=== PATIENT | female | born 1940 | race Caucasian/White ===

== ENCOUNTER 2019-07-07 12:47 | Outpatient (CLI) | payer MEDICARE, SELFPAY ==
[2019-07-07 13:56] LABS: Alanine Aminotransferase 20 U/L (4-35); Albumin Level 4.3 g/dL (3.5-5.1); Alkaline Phosphatase 84 U/L (38-126); Aspartate Amino Transferase 29 U/L (14-36); Bilirubin,Total 0.4 mg/dL (0.2-1.3); Blood Urea Nitrogen 18 mg/dL (7-17); Calcium 9.2 mg/dL (8.4-10.2); Carbon Dioxide 32 mmol/L (22-30); Chloride 96 mmol/L (98-107); Estimated Glomerular Filt Rate > 60; Glucose 93 mg/dL (65-105); Magnesium 2.1 mg/dL (1.6-2.3); Phosphorus 4.3 mg/dL (2.5-4.5); Sodium 137 mmol/L (137-145)
[2019-07-07 14:04] LABS: Parathyroid Intact 68.5 pg/mL (7.5-53.5)
[2019-07-07 16:07] LABS: Vitamin D 25 Hydroxy 45.3 ng/mL
[2019-07-10 05:31] LABS: Ionized Calcium 5.1 mg/dL (4.8-5.6)
== END 2019-07-07 12:48 | disposition home or self-care (01) ==
PROVIDERS: PCP Internal Medicine
DX: M81.0 Age-related osteoporosis without current pathological fracture (principal)
CPT/HCPCS: 36415; 80053; 82306; 82330; 82652; 83735; 83970; 84100

== ENCOUNTER 2019-12-22 13:46 | Outpatient (CLI) | payer MEDICARE, SELFPAY ==
--- NOTE | ~2019-12-22 | XR_ITS ---
EXAMINATION: XR shoulder RT min 2V DATE: 12/22/2019 14:27 INDICATION: Right shoulder pain. TECHNIQUE: 5 views of right shoulder were obtained. COMPARISON: None. FINDINGS: Bone alignment is normal. There is an oblique fracture deformity of right clavicle at the j unction of the middle and distal thirds. The distal bone demonstrates inferior angulation. There is m ild osteoarthritis of glenohumeral joint and acromioclavicular joint. There are changes of vertebropl asty at 2 levels in the spine. IMPRESSION: 1. Age-indeterminant fracture deformity of right clavicle. 2. Mild polyarticular osteoarthritis. Reviewed, dictated and finalized at location A.
[2019-12-22 15:44] LABS: Basophils Percent Auto 0.6 % (0.2-1.2); Eosinophils Percent Auto 0.6 % (0-4.4); Hematocrit 41.4 % (37.0-47.0); Hemoglobin 13.6 g/dL (12.0-15.0); Immature Granulocyte Absolute 0.02 K/mm3 (0.00-0.031); Immature Granulocyte Percent A 0.3 % (0-0.5); Lymphocytes Percent Auto 19.8 % (18.3-44.2); Mean Corpuscular HGB Conc 32.9 g/dl (32-36); Mean Corpuscular Hemoglobin 29.8 pg (26-34); Mean Corpuscular Volume 90.6 fl (80-100); Mean Platelet Volume 10.2 fl (7.4-10.4); Monocytes Absolute Auto 0.5 K/mm3 (0.1-0.6); Monocytes Percent Auto 6.6 % (2.6-8.5); Neutrophils Absolute Auto 5.1 K/mm3 (1.3-6.7); Neutrophils Percent Auto 72.1 % (45.5-73.1); Platelet Count Result 228 k/mm3 (150-375); Red Blood Count 4.57 M/mm3 (4.2-5.4); Red Cell Distribution Width 13.2 % (11.5-14.5); White Blood Count 7.1 K/mm3 (4.5-10.0)
[2019-12-22 15:47] LABS: Add Urine Microscopic? YES; Appearance Urine Clear (Clear); Bilirubin Urine Negative (Negative); Blood Urine Negative (Negative); Color Urine Yellow (Yellow); Glucose Urine UA Negative (Negative); Ketones Urine Trace mg/dL (Negative); Leukocyte Esterase Ur Negative LEU/UL (Negative); Mucus Urine Rare /lpf; Nitrate Urine Negative (Negative); Protein Urine Negative (Negative); RBC Urine 0-2 /hpf (0-2); Specific Grav Ur 1.017 (1.001-1.035); Squamous Epithelial Cell Urine Rare /hpf (Few); Urobilinogen Urine Negative mg/dL (<2.0); WBC Urine 0-3 /hpf
[2019-12-22 16:00] LABS: Alanine Aminotransferase 18 U/L (4-35); Albumin Level 4.5 g/dL (3.5-5.1); Alkaline Phosphatase 68 U/L (38-126); Anion Gap 11.1 mmol/L (7-16); Aspartate Amino Transferase 29 U/L (14-36); Bilirubin,Total 0.5 mg/dL (0.2-1.3); Blood Urea Nitrogen 23 mg/dL (7-17); Calcium 9.3 mg/dL (8.4-10.2); Carbon Dioxide 31 mmol/L (22-30); Chloride 98 mmol/L (98-107); Cholesterol 218 mg/dL (0-200); Estimated Glomerular Filt Rate > 60; Glucose 95 mg/dL (65-105); HDL Direct 106 mg/dL; Potassium 4.1 mmol/L (3.4-5.0); Sodium 136 mmol/L (137-145); Triglycerides 79 mg/dL (<150)
[2019-12-22 16:11] LABS: LDL Cholesterol Direct 94 mg/dL
[2019-12-22 16:28] LABS: Thyroid Stimulating Hormone 0.824 uIU/mL (0.465-4.680)
== END 2019-12-22 13:47 | disposition home or self-care (01) ==
PROVIDERS: PCP Internal Medicine; Visit Provider Internal Medicine
DX: R53.1 Weakness (principal); M25.519 Pain in unspecified shoulder; N32.89 Other specified disorders of bladder; E78.5 Hyperlipidemia, unspecified; E03.9 Hypothyroidism, unspecified; M95.8 Other specified acquired deformities of musculoskeletal system; M19.011 Primary osteoarthritis, right shoulder
CPT/HCPCS: 36415; 73030; 80053; 80061; 81001; 84443; 85025

== ENCOUNTER 2020-01-03 13:32 | Outpatient (CLI) | payer MEDICARE, SELFPAY ==
--- NOTE | ~2020-01-03 | DEXA_ITS ---
Bone Density Report Name: Mely Wheatley Age: 79 Sex: Female Ethnicity: White Date of : 1940 Indication: postmenopausal osteoporosis; monitoring treatment; height loss; prior fracture; Referring Provider: PHYSICIAN NOT ON STAFF Study: Bone densitometry was performed. Exam Date: January 03, 2020 Accession number: [id number] Bone Density: Region BMD T-score Z-score Classification AP Spine (L3, L4) 0.893 -1.9 1.0 Osteopenia Femoral Neck (Left) 0.418 -3.9 -1.5 Osteoporosis Total Hip (Left) 0.541 -3.3 -1.1 Osteoporosis Total Hip Bilateral Avg 0.556 -3.2 -1.0 Osteoporosis Femoral Neck (Right) 0.440 -3.7 -1.3 Osteoporosis Total Hip (Right) 0.571 -3.0 -0.9 Osteoporosis World Health Organization criteria for BMD impression classify patients as: Normal (T-score at or above -1.0), Osteopenia (T-score between -1.0 and -2.5), or Osteoporosis (T-score at or below -2.5). 10-year Fracture Risk: FRAX not reported because: Some T-score for Spine Total or Hip Total or Femoral Neck at or below -2.5 Prior hip or vertebral fracture Treated for osteopor Previous Exams: Region Exam Age BMD T-score BMD Change BMD Change Date g/cm2 vs Baseline vs Previous AP Spine(L3, L4) 01/03/2020 79 0.893 -1.9 0.008(0.9%) 0.008(0.9%) 10/27/2018 78 0.885 -2.0 Total Hip(Left) 01/03/2020 79 0.541 -3.3 0.038(7.6%)* 0.038(7.6%)* 10/27/2018 78 0.503 -3.6 Total Hip(Right) 01/03/2020 79 0.571 -3.0 0.026(4.8%) 0.026(4.8%) 10/27/2018 78 0.544 -3.3 *Denotes significance at 95% confidence level, LSC for AP Spine = 0.022 g/cm2, LSC for Total Hip = 0.027 g/cm2 Clinical Information Provided by Patient: Have had a previous hip or vertebral fracture Has had a low trauma fracture Is being treated for osteoporosis Has used the following medications: Prolia (i.e. denosumab), Vitamin D, Calcium Patient maximum height was 66.5 Menopause Age: 48 No regular weight bearing exercise Onset of menses at age 12 Number of children 2 Impression: The patient has established osteoporosis, based on the Left Femoral Neck T-score and the existence of a prior fracture. The patient has risk factors, including: previous fracture. No significant bone loss was observed. Discussion: PATIENT UNDER TREATMENT WITH NO SIGNIFICANT BMD LOSS SINCE LAST EXAM. In an untreated patient, BMD typically declines with age. A lack of decline or gain is usually a sign that treatment is efficac
== END 2020-01-03 13:33 | disposition home or self-care (01) ==
PROVIDERS: PCP Internal Medicine
DX: M81.0 Age-related osteoporosis without current pathological fracture (principal); M85.88 Other specified disorders of bone density and structure, other site
CPT/HCPCS: 77080

== ENCOUNTER 2020-01-19 15:14 | Outpatient (CLI) | payer MEDICARE, SELFPAY ==
[2020-01-19 16:51] LABS: Alanine Aminotransferase 16 U/L (4-35); Albumin Level 4.4 g/dL (3.5-5.1); Alkaline Phosphatase 67 U/L (38-126); Anion Gap 6 mmol/L (8-16); Aspartate Amino Transferase 27 U/L (14-36); Bilirubin,Total 0.5 mg/dL (0.2-1.3); Blood Urea Nitrogen 20 mg/dL (7-17); Calcium 9.5 mg/dL (8.4-10.2); Carbon Dioxide 30 mmol/L (22-30); Chloride 98 mmol/L (98-107); Estimated Glomerular Filt Rate > 60; Glucose 90 mg/dL (65-105); Magnesium 2.2 mg/dL (1.6-2.3); Phosphorus 4.7 mg/dL (2.5-4.5); Sodium 134 mmol/L (137-145)
[2020-01-19 17:02] LABS: Parathyroid Intact 40.6 pg/mL (7.5-53.5)
[2020-01-19 17:27] LABS: Vitamin D 25 Hydroxy 61.4 ng/mL
[2020-01-22 05:50] LABS: Ionized Calcium 5.3 mg/dL (4.8-5.6)
== END 2020-01-19 15:15 | disposition home or self-care (01) ==
PROVIDERS: PCP Internal Medicine
DX: M81.0 Age-related osteoporosis without current pathological fracture (principal)
CPT/HCPCS: 36415; 80053; 82306; 82330; 83735; 83970; 84100

== ENCOUNTER 2020-09-02 08:12 | Outpatient (CLI) | payer MEDICARE, SELFPAY ==
[2020-09-02 08:50] LABS: Basophils Percent Auto 0.6 % (0.2-1.2); Eosinophils Absolute Auto 0.1 K/mm3 (0-0.3); Eosinophils Percent Auto 0.9 % (0-4.4); Hematocrit 42.5 % (37.0-47.0); Hemoglobin 13.4 g/dL (12.0-15.0); Immature Granulocyte Absolute 0.02 K/mm3 (0.00-0.031); Immature Granulocyte Percent A 0.3 % (0-0.5); Lymphocytes Percent Auto 25.8 % (18.3-44.2); Mean Corpuscular HGB Conc 31.5 g/dl (32-36); Mean Corpuscular Hemoglobin 28.6 pg (26-34); Mean Corpuscular Volume 90.8 fl (80-100); Monocytes Absolute Auto 0.5 K/mm3 (0.1-0.6); Neutrophils Absolute Auto 4.3 K/mm3 (1.3-6.7); Neutrophils Percent Auto 65.4 % (45.5-73.1); Platelet Count Result 240 k/mm3 (150-375); Red Blood Count 4.68 M/mm3 (4.2-5.4); Red Cell Distribution Width 13.4 % (11.5-14.5); White Blood Count 6.6 K/mm3 (4.5-10.0)
[2020-09-02 09:03] LABS: Alanine Aminotransferase 18 U/L (4-35); Albumin Level 4.3 g/dL (3.5-5.1); Alkaline Phosphatase 66 U/L (38-126); Anion Gap 4 mmol/L (8-16); Aspartate Amino Transferase 29 U/L (14-36); Bilirubin,Total 0.3 mg/dL (0.2-1.3); Blood Urea Nitrogen 27 mg/dL (7-17); Calcium 9.6 mg/dL (8.4-10.2); Carbon Dioxide 36 mmol/L (22-30); Chloride 102 mmol/L (98-107); Estimated Glomerular Filt Rate > 60; Glucose 94 mg/dL (65-105); Potassium 4.5 mmol/L (3.4-5.0); Sodium 142 mmol/L (137-145)
[2020-09-02 09:35] LABS: Free T4 Free Thyroxine 1.29 ng/mL (0.78-2.19)
[2020-09-05 14:47] LABS: Triiodothyronine T3 Free 2.5 pg/mL (2.3-4.2)
== END 2020-09-02 08:13 | disposition home or self-care (01) ==
PROVIDERS: PCP Internal Medicine; Visit Provider Internal Medicine
DX: E03.9 Hypothyroidism, unspecified (principal); F41.9 Anxiety disorder, unspecified; M81.0 Age-related osteoporosis without current pathological fracture
CPT/HCPCS: 36415; 80053; 84439; 84443; 84481; 85025

== ENCOUNTER 2020-10-13 12:03 | Outpatient (CLI) | payer MEDICARE, SELFPAY ==
--- NOTE | ~2020-10-13 | US_ITS ---
EXAMINATION: US venous doppler LE EXAM DATE: 10/13/2020 12:36 INDICATION: M79.89 - Other specified soft tissue disorders right leg pain TECHNIQUE: Multiple grayscale, color flow and Doppler images of the lower extremity deep venous syste ms bilaterally were obtained and reviewed. There is no prior study for comparison. FINDINGS: Right side: The right common femoral, femoral and profunda veins demonstrate normal color flow, respi ratory variation, augmentation and compressibility. Compressibility, color flow confirmed within the right popliteal, posterior tibial, peroneal, and greater saphenous veins. Small popliteal space flu id collection probably Abbasi's cyst measuring 30.7 x 1.2 x 0.4 cm. Left side: The left common femoral, femoral and profunda veins demonstrate normal color flow, respira tory variation, augmentation and compressibility. Compressibility, color flow confirmed within the l eft popliteal, posterior tibial, peroneal, and greater saphenous veins. IMPRESSION: 1. No lower extremity deep venous thrombosis bilaterally. 2. Small right Abbasi's cyst Reviewed, dictated and finalized at location A.
== END 2020-10-13 12:04 | disposition home or self-care (01) ==
LOC: ANHIMG 12:04
PROVIDERS: PCP Internal Medicine; Visit Provider Internal Medicine
DX: M79.89 Other specified soft tissue disorders (principal); M71.21 Synovial cyst of popliteal space [Baker], right knee
CPT/HCPCS: 93970

== ENCOUNTER 2020-11-08 10:45 | Emergency (ER) | payer MEDICARE, SELFPAY ==
[2020-11-08] VITALS (9 sets, daily range): BP systolic 138–180; BP diastolic 88–98; PULSE 65–76; RESP 13–16; TEMP 36.2; O2SAT 90–100
--- NOTE | ~2020-11-08 | CT_ITS ---
EXAMINATION: CTA chest PE protocol DATE: 11/08/2020 14:49 INDICATION: Chest pain. Upper chest pain. Left lower rib pain. TECHNIQUE: Computed tomography angiography (CTA) of the chest was performed with 100 mL Omnipaque-350 intravenous contrast timed to evaluate the pulmonary arteries. Coronal maximum intensity projection 3D-reconstructions were created by the technologist. Automated exposure control and iterative reconst ruction technique were employed. Exam dose: 136.07 mGy-cm total exam DLP. COMPARISON: 11/08/2020 AP and lateral chest FINDINGS: There is diagnostic contrast enhancement of the pulmonary arteries and no evidence of pulmo nary embolism. Cardiomegaly. No pericardial effusion or pleural effusion. No hilar or mediastinal mass lesion or lym phadenopathy. No thoracic aortic aneurysm. There is mild discoid atelectasis or scarring in the lower lung zones primarily. No pulmonary consoli dation. Diffuse osteopenia. Status post vertebroplasty at T12 and L1 burst fractures. There is a burst fracture at T8. Prominent anterior wedge compression fracture deformity at T11. Biconcavity of multiple thoracic vertebral bodi es and L2 and L3. IMPRESSION: No evidence of pulmonary embolism Reviewed, dictated and finalized at Location A. Reviewed, dictated and finalized at location A.
--- NOTE | ~2020-11-08 | XR_ITS ---
XR chest 2V 11/08/2020 11:18 Indication: Chest heaviness Procedure: AP and lateral views of the chest Comparison: No prior studies for comparison. Findings: Heart size normal. No focal air space disease, pulmonary edema, pleural effusion or suspect ed pneumothorax. There is healed right midclavicular fracture. There are multiple thoracic compressio n fractures which appear chronic, 2 of which contain vertebroplasty change in the lower thoracic spin e. There is accentuated thoracic kyphosis. The lungs are hyperinflated which is consistent with, but not diagnostic of chronic obstructive pulmonary disease. Impression: 1: No acute cardiopulmonary disease. Reviewed, dictated and finalized at location A. Impression: 1: No acute cardiopulmonary disease.
--- NOTE | 2020-11-08 10:57 | ECG_ITS ---
Measurements Intervals [place] Rate: 76 P: 42 [place]: 147 QRS: 2 QRSD: 90 T: 62 QT: 370 QTc: 417 Interpretive Statements SINUS RHYTHM INCOMPLETE RIGHT BUNDLE BRANCH BLOCK VOLTAGE CRITERIA FOR LVH PEAKED T WAVES- CONSIDER HYPERKALEMIA OR ISCHEMIA BASELINE ARTIFACT- I, II, III, AVL ABNORMAL ECG Electronically Signed On 11-08-2020 11:22:48 CDT by Kip Gipson D.O.
[2020-11-08 11:38] LABS: Basophils Percent Auto 0.3 % (0.2-1.2); Eosinophils Percent Auto 0.1 % (0-4.4); Hematocrit 39.3 % (37.0-47.0); Hemoglobin 12.7 g/dL (12.0-15.0); Immature Granulocyte Absolute 0.02 K/mm3 (0.00-0.031); Immature Granulocyte Percent A 0.3 % (0-0.5); Lymphocytes Absolute Auto 1.39 K/mm3 (0.9-3.2); Lymphocytes Percent Auto 19.3 % (18.3-44.2); Mean Corpuscular HGB Conc 32.3 g/dl (32-36); Mean Corpuscular Volume 89.7 fl (80-100); Mean Platelet Volume 9.6 fl (7.4-10.4); Monocytes Absolute Auto 0.4 K/mm3 (0.1-0.6); Monocytes Percent Auto 6.1 % (2.6-8.5); Neutrophils Absolute Auto 5.3 K/mm3 (1.3-6.7); Neutrophils Percent Auto 73.9 % (45.5-73.1); Platelet Count Result 220 k/mm3 (150-375); Red Blood Count 4.38 M/mm3 (4.2-5.4); Red Cell Distribution Width 13.7 % (11.5-14.5); White Blood Count 7.2 K/mm3 (4.5-10.0)
[2020-11-08 11:45] LABS: Anion Gap 7 mmol/L (8-16); Blood Urea Nitrogen 19 mg/dL (7-17); Calcium 9.6 mg/dL (8.4-10.2); Carbon Dioxide 31 mmol/L (22-30); Chloride 100 mmol/L (98-107); Estimated CRCL calculation 30 ml/min; Estimated Glomerular Filt Rate > 60; Glucose 93 mg/dL (65-105); Potassium 4.3 mmol/L (3.4-5.0); Sodium 138 mmol/L (137-145)
[2020-11-08] MEDS: ASPIRIN 81 MG CHEWABLE TABLET 324 MG PO (11:48)
[2020-11-08 11:52] LABS: INR 0.9; Prothrombin Time 12.8 Seconds (11.1-14.7)
[2020-11-08 11:53] LABS: Partial Thromboplastin Time 30.5 SECONDS (22.3-36.8)
[2020-11-08 11:57] LABS: Troponin I < 0.012 ng/mL (0.000-0.034)
--- NOTE | 2020-11-08 12:06 | ED.GENADULT ---
HPI - General Adult General Chief complaint: Chest Pain Stated complaint: Chest Tightness, High BP Time Seen by Provider: 11/08/20 11:13 Source: patient History of Present Illness HPI narrative: Patient is a 80 y/o female complaining of chest pain starting this morning. She describes her pain as a pressure and rates it as 3/10. The is no pain radiation. There is no known alleviating or exacerbating factor. She also has some left lateral rib pain for 3 days. Related Data Home Medications Medication Instructions Recorded Confirmed cholecalciferol (vitamin D3) 25 1,000 unit PO DAILY 04/13/19 08/15/20 mcg (1,000 unit) capsule magnesium aspartate HCl 61 mg (615 61 mg PO DAILY 04/26/20 08/15/20 mg) tablet,delayed release multivitamin 1 tablet PO DAILY 04/26/20 08/15/20 denosumab 60 mg/mL subcutaneous 60 mg SUBCUT [id number] 08/15/20 08/15/20 syringe Allergies Allergy/AdvReac Type Severity Reaction Status Date / Time No Known Allergies Allergy Verified 10/13/20 11:14 Review of Systems Constitutional: Constitutional: Denies chills, Denies fever(s), Denies headache(s) and Denies weakness Eyes: Eyes: Denies blurry vision ENT: Denies headache(s) and Denies neck pain Cardiovascular: Cardiovascular: Reports chest pain and Denies dyspnea Respiratory: Respiratory: Denies cough and Denies dyspnea Gastrointestinal: Gastrointestinal: Denies abdominal pain, Denies diarrhea, Denies nausea and Denies vomiting Genitourinary: Genitourinary: Denies hematuria and Denies dysuria Musculoskeletal: Musculoskeletal: Denies back pain and Denies neck pain Neurologic: Denies headache(s) and Denies weakness [facility] Past Medical History Medical History Acquired hypothyroidism Age-related osteoporosis with current pathological fracture Arthritis Back pain Dermatitis Dyshidrotic dermatitis Forgetfulness Generalized weakness H/O: HTN (hypertension) IFG (impaired fasting glucose) Osteoporosis Osteoporosis Rotator cuff strain Rotator cuff tear, right Thyroid disease Family History Family History Mother Diabetes mellitus Hypertension Other Family history of congestive heart failure Social History Social History Second hand tobacco smoke exposure: No Alcohol intake: never Spiritual care concerns: No Exam Const: General: no acute distress and well developed Orientation/consciousness: oriented to person, oriented to place, oriented to time and patient oriented x3 HENMT: Head: normocephalic Ears: external ears normal General nose exam: Normal external nose present Eyes: General: appearance normal, both eyes and all related structures Conjunctivae: conjunctivae normal Neck: Neck: normal visual inspection and full ROM Chest: Chest palpation & inspection: normal inspection of the chest and no tenderness Resp: Effort & Inspection: normal respiratory effort Auscultation: clear to auscultation bilaterally Cardio: Rate: regular rate Rhythm: regular rhythm GI: GI Palp: No abdominal tenderness and Yes Soft to palpation Skin: General skin exam: normal color and turgor normal Neuro: General: oriented to person, oriented to place, oriented to time and patient oriented x3 Cognition (Neuro): normal cognition Extrem: General: normal to inspection, full ROM and no pedal edema Psych: Appearance: grossly normal Mental Status: mental status grossly normal Affect: normal affect Course Reevaluation(s) Reevaluation #1: Rechecked. Patient feels better. She has no pain at this time. Date: 11/08/20 Time: 16:16 Vital Signs Vital signs: Vital Signs Temperature 36.2 C L 11/08/20 10:57 Pulse Rate 76 11/08/20 10:57 Respiratory Rate 16 11/08/20 10:57 Blood Pressure 167/90 H 11/08/20 10:57 Pulse Oximetry 97 11/08/20 10:57 Temperature 36.2 C
[2020-11-08 12:52] LABS: D Dimer 0.83 ug/mL (<0.48)
[2020-11-08 14:52] LABS: Troponin I < 0.012 ng/mL (0.000-0.034)
== END 2020-11-08 16:40 | disposition home or self-care (01) ==
PROVIDERS: Emergency Medicine; Emergency Provider Emergency Medicine; PCP Internal Medicine
DX: R07.9 Chest pain, unspecified (principal); E03.9 Hypothyroidism, unspecified; M19.90 Unspecified osteoarthritis, unspecified site; I10 Essential (primary) hypertension; M81.0 Age-related osteoporosis without current pathological fracture; I45.10 Unspecified right bundle-branch block; R94.31 Abnormal electrocardiogram [ECG] [EKG]
CPT/HCPCS: 36415; 71046; 71275; 80048; 84484; 85025; 85380; 85610; 85730; 93005; 99284; A9270; Q9967

== ENCOUNTER 2021-02-16 10:07 | Outpatient (CLI) | payer MEDICARE, SELFPAY ==
[2021-02-16 11:08] LABS: Alanine Aminotransferase 18 U/L (4-35); Albumin Level 4.7 g/dL (3.5-5.1); Alkaline Phosphatase 77 U/L (38-126); Anion Gap 7 mmol/L (8-16); Aspartate Amino Transferase 26 U/L (14-36); Bilirubin,Total 0.6 mg/dL (0.2-1.3); Blood Urea Nitrogen 20 mg/dL (7-17); Calcium 9.5 mg/dL (8.4-10.2); Carbon Dioxide 30 mmol/L (22-30); Chloride 101 mmol/L (98-107); Cholesterol 209 mg/dL (0-200); Estimated Glomerular Filt Rate > 60; Glucose 98 mg/dL (65-110); HDL Direct 109 mg/dL; Potassium 4.4 mmol/L (3.4-5.0); Sodium 138 mmol/L (137-145); Triglycerides 72 mg/dL (<150)
[2021-02-16 11:19] LABS: LDL Cholesterol Direct 83 mg/dL
[2021-02-16 12:05] LABS: Hemoglobin A1C 5.7 % (<5.7)
[2021-02-16 12:10] LABS: Vitamin D 25 Hydroxy 56.8 ng/mL
== END 2021-02-16 10:08 | disposition home or self-care (01) ==
PROVIDERS: PCP Internal Medicine; Visit Provider Internal Medicine
DX: E03.9 Hypothyroidism, unspecified (principal); E55.9 Vitamin D deficiency, unspecified; F41.9 Anxiety disorder, unspecified; M81.0 Age-related osteoporosis without current pathological fracture; R68.89 Other general symptoms and signs; R73.01 Impaired fasting glucose; E78.2 Mixed hyperlipidemia
CPT/HCPCS: 36415; 80053; 80061; 82306; 83036; 84443

== ENCOUNTER 2021-02-21 12:55 | Outpatient (NON) | payer MEDICARE, SELFPAY ==
[2021-02-21 14:02] LABS: Creatinine Urine 113.7 mg/dL
[2021-02-21 14:08] LABS: Microalbumin Urine Random 29.6 mg/L (0-16.7)
== END 2021-02-21 12:56 | disposition home or self-care (01) ==
LOC: ANHLAB 12:57
PROVIDERS: PCP Internal Medicine; Visit Provider Internal Medicine
DX: E03.9 Hypothyroidism, unspecified (principal); R68.89 Other general symptoms and signs; M81.0 Age-related osteoporosis without current pathological fracture; F41.9 Anxiety disorder, unspecified; E55.9 Vitamin D deficiency, unspecified; R73.01 Impaired fasting glucose
CPT/HCPCS: 82043

== ENCOUNTER 2021-10-13 12:10 | Emergency (ER) | payer MEDICARE, SELFPAY ==
[2021-10-13] VITALS (11 sets, daily range): BP systolic 122–183; BP diastolic 74–95; PULSE 67–87; RESP 12–20; TEMP 36.3; O2SAT 94–100
--- NOTE | ~2021-10-13 | CT_ITS ---
EXAMINATION: CT abdomen pelvis wo con DATE: 10/13/2021 13:58 INDICATION: right flank pain TECHNIQUE: Computed tomography (CT) of the abdomen and pelvis was performed without intravenous contr ast. Automated exposure control and iterative reconstruction technique were employed. The dose-length product was 166.52 mGy-cm. COMPARISON: CTPA 11/08/2020. FINDINGS: Lower thorax: Atelectasis/scar and senescent changes in the lung bases. Moderate coronary artery calc ification. Liver: Normal. Biliary/Gallbladder: Gallbladder is normal. No bile duct dilation. Pancreas: No mass or duct dilation. Spleen: Normal. Adrenals:No mass. Kidneys: Ectopic right kidney. Punctate nonobstructing bilateral renal calculi. The right ureter coul d not be traced confidently in the pelvis due to the paucity of peritoneal fat and loops of bowel. GI tract: No small or large bowel dilation. Normal appendix. Diverticulosis without diverticulitis Mesentery/Peritoneum: No ascites, mass, or free air. Retroperitoneum: No mass. Pelvis: Pelvic organs are within normal limits. Soft Tissues: Soft tissues and body wall unremarkable. Bones: Multiple stable vertebral body compression fractures. Presumed old superior endplate deformit y of L5. IMPRESSION: Punctate nonobstructing bilateral calculi. Ectopic right kidney. Nonvisualization of the distal right ureter, however no calcifications are definitely seen within the expected path of the right ureter. Likely old L5 superior endplate deformity, unless accompanied by acute pain or tenderness. No definit e acute abdominopelvic process. Reviewed, dictated and finalized at location K. IMPRESSION: Punctate nonobstructing bilateral calculi. Ectopic right kidney. Nonvisualizati on of the distal right ureter, however no calcifications are definitely seen wi thin the expected path of the right ureter. Likely old L5 superior endplate def ormity, unless accompanied by acute pain or tenderness. No definite acute abdom inopelvic process.
--- NOTE | ~2021-10-13 | XR_ITS ---
EXAMINATION: XR chest 2V DATE: 10/13/2021 13:49 INDICATION: Lower abdominal pain radiating into the back TECHNIQUE: frontal and lateral views of the chest were obtained. COMPARISON: Chest radiograph and CT dated 11/08/2020 FINDINGS: The lungs are clear with no focal airspace opacities, pulmonary edema, pleural effusion or pneumothor ax. Mild cardiomegaly. Stable appearance of several burst fractures including at T8 and T11 and witho ut vertebral plasties at T12 and L1. Old healed right clavicle fracture deformity. IMPRESSION: 1. No acute cardiopulmonary disease. 2. Thoracic kyphosis with stable appearance of a few chronic thoracic and lumbar burst fractures. Reviewed, dictated and finalized at location A. IMPRESSION: 1. No acute cardiopulmonary disease. 2. Thoracic kyphosis with stable appearance of a few chronic thoracic and lumba r burst fractures.
--- NOTE | ~2021-10-13 | CT_ITS ---
EXAMINATION: CT thoracic spine wo con DATE: 10/13/2021 15:53 INDICATION: fracture . TECHNIQUE: Computed tomography (CT) of the thoracic spine was performed without intravenous contrast. Automated exposure control and iterative reconstruction technique were employed. The dose-length pro duct was 162.18 mGy-cm. COMPARISON: CT abdomen and pelvis, and 2 view chest x-ray same date. CTPA 11/08/2020. FINDINGS: Vertebroplasty cement and mild height loss at T12 and L1. Severe height loss at T8. Moderat e height loss at T11. Remaining vertebral body heights are maintained. No acute fracture or traumatic malalignment. Posterior elements are intact and the facets are aligned. Severe exaggerated thoracic kyphosis. Coronary artery and atherosclerotic aortic calcifications. IMPRESSION: 1. No acute fracture or traumatic malalignment in the thoracic spine. Reviewed, dictated and finalized at location K.
[2021-10-13 12:29] LABS: Basophils Percent Auto 0.4 % (0.2-1.2); Eosinophils Percent Auto 0.1 % (0-4.4); Hematocrit 40.5 % (37.0-47.0); Hemoglobin 13.2 g/dL (12.0-15.0); Immature Granulocyte Absolute 0.02 K/mm3 (0.00-0.031); Immature Granulocyte Percent A 0.2 % (0-0.5); Lymphocytes Absolute Auto 1.29 K/mm3 (0.9-3.2); Lymphocytes Percent Auto 15.8 % (18.3-44.2); Mean Corpuscular HGB Conc 32.6 g/dl (32-36); Mean Corpuscular Hemoglobin 29.7 pg (26-34); Mean Corpuscular Volume 91.2 fl (80-100); Mean Platelet Volume 9.9 fl (7.4-10.4); Monocytes Absolute Auto 0.5 K/mm3 (0.1-0.6); Monocytes Percent Auto 6.4 % (2.6-8.5); Neutrophils Absolute Auto 6.3 K/mm3 (1.3-6.7); Neutrophils Percent Auto 77.1 % (45.5-73.1); Platelet Count Result 273 k/mm3 (150-375); Red Blood Count 4.44 M/mm3 (4.2-5.4); Red Cell Distribution Width 13.2 % (11.5-14.5); White Blood Count 8.2 K/mm3 (4.5-10.0)
[2021-10-13 12:47] LABS: Alanine Aminotransferase 20 U/L (6-35); Albumin Level 4.5 g/dL (3.5-5.1); Alkaline Phosphatase 85 U/L (38-126); Anion Gap 3 mmol/L (8-16); Aspartate Amino Transferase 30 U/L (14-36); Bilirubin,Total 0.3 mg/dL (0.2-1.3); Blood Urea Nitrogen 20 mg/dL (7-17); Calcium 9.4 mg/dL (8.4-10.2); Carbon Dioxide 31 mmol/L (22-30); Chloride 100 mmol/L (98-107); Estimated CRCL calculation 34 ml/min; Estimated Glomerular Filt Rate > 60; Glucose 96 mg/dL (65-110); Potassium 4.2 mmol/L (3.4-5.0); Sodium 134 mmol/L (137-145)
--- NOTE | 2021-10-13 12:59 | ED.ABDPAIN ---
HPI - Abdominal Pain General Chief Complaint: Abdominal Pain Stated Complaint: Flank Pain Time Seen by Provider: 10/13/21 12:57 Source: patient Mode of arrival: ambulatory Limitations: no limitations History of Present Illness HPI narrative: The patient is an 81-year-old female with a history of hypertension, osteoporosis, hypothyroidism presenting to the emergency department for evaluation of lower chest pain, right flank pain. Patient states that she has been experiencing bilateral lower rib cage pain with radiation to the right flank over the past 24 hours. Patient denies frontal chest pain, nausea, vomiting. She denies any significant frontal abdominal pain, distention, diarrhea or constipation. Patient was watering hassan yesterday, noted the pain to begin shortly thereafter. Patient denies any spasm-like pain. No radiation into the buttocks. Patient denies any lightheadedness, dizziness or near syncopal events. Patient denies fall or injury. No pleuritic pain, cough or hemoptysis Patient denies any dysuria or hematuria. Patient does report that pain in the right flank is exacerbated with movement and resolves with rest. Pt does have a history of mild dementia and at times, details difficult to obtain from patient. Family at bedside does help to provide this. Related Data Home Medications Medication Instructions Recorded Confirmed cholecalciferol (vitamin D3) 25 1,000 unit PO DAILY 04/13/19 06/25/21 mcg (1,000 unit) capsule multivitamin 1 tablet PO DAILY 04/26/20 06/25/21 Allergies Allergy/AdvReac Type Severity Reaction Status Date / Time nitrofurantoin AdvReac Itching Verified 10/13/21 12:54 [From Macrobid] Review of Systems Review of Systems: CONSTITUTIONAL: Denies fever, chills, or sweats. EYES: Denies visual changes, redness, or discharge. ENT: Denies rhinorrhea, congestion, sore throat, or otalgia. CARDIOVASCULAR: Reports lower rib cage pain, denies palpitations or edema RESPIRATORY: Denies cough or dyspnea. GASTROINTESTINAL: Denies abdominal pain, nausea, vomiting, or diarrhea. Thorax: Reports right flank pain GENITOURINARY: Denies dysuria or hematuria. SKIN: Denies rash or itching. MUSCULOSKELETAL: Denies back pain, joint pain, or myalgia. NEUROLOGIC: Denies headache, numbness, or weakness. [facility] Past Medical History Medical History Acquired hypothyroidism Age-related osteoporosis with current pathological fracture Arthritis Back pain Dermatitis Dyshidrotic dermatitis Forgetfulness Generalized weakness H/O: HTN (hypertension) History of fractured pelvis (~02/2020) IFG (impaired fasting glucose) Osteoporosis Osteoporosis Rotator cuff strain Rotator cuff tear, right Thyroid disease Family History Family History Mother Diabetes mellitus Hypertension Father Pancreatic cancer Other Family history of congestive heart failure Social History Social History Smoking status: Never smoker Second hand tobacco smoke exposure: No Alcohol intake: never Substance use: never Substance use type: does not use Spiritual care concerns: No Exam Narrative: GENERAL: Awake, alert, conversant, thin HEAD: Normocephalic, atraumatic. EYES: PERRLA and EOMI. ENT: Nares clear, no rhinorrhea or epistaxis. Mucous membranes moist. NECK: Supple. Kyphosis of the neck. CHEST: No respiratory distress, breathing even and non labored, no chest wall tenderness HEART: Regular rate, sinus rhythm ABDOMEN:Non distended, no reproducible tenderness in all 4 quadrants on exam, no rigidity, rebound or guarding Thorax: No midline thoracic or lumbar tenderness. There is positive right paraspinal lumbar tenderness which reproduces pain. EXTREMITIES: Normal range of motion. No edema. SKIN: Warm, dry, no rash. NEURO:No focal deficits. Alert a
--- NOTE | 2021-10-13 13:32 | ECG_ITS ---
Measurements Intervals [place] Rate: 68 P: 32 [place]: 149 QRS: -6 QRSD: 94 T: 47 QT: 407 QTc: 436 Interpretive Statements SINUS RHYTHM RSR' IN V1 OR V2, CONSIDER RIGHT VENTRICULAR HYPERTROPHY OR RIGHT VCD BASELINE ARTIFACT- I, II, III, AVR, AVL, AVF, V1-V2 BORDERLINE ECG Electronically Signed On 10-13-2021 17:09:38 CDT by Kip Gipson D.O.
--- NOTE | 2021-10-13 13:42 | PC.NURSE ---
called lab and talked to Shona at 1341 to add on a Trop 1.
[2021-10-13 13:50] LABS: Appearance Urine Clear (Clear); Bilirubin Urine Negative (Negative); Blood Urine Negative (Negative); Color Urine Yellow (Yellow); Glucose Urine UA Negative (Negative); Ketones Urine Negative (Negative); Leukocyte Esterase Ur Negative LEU/UL (Negative); Nitrate Urine Negative (Negative); Protein Urine Negative (Negative); Specific Grav Ur 1.025 (1.001-1.035); Urobilinogen Urine 0.2 mg/dL (<2.0); pH Urine 6.5 (5.0-9.0)
[2021-10-13 13:57] LABS: Add Urine Microscopic? NO
[2021-10-13] MEDS: SODIUM CHLORIDE 0.9% IV 1,000 ML 999 ML IV CONT (14:03)
[2021-10-13] MEDS: MORPHINE SULFATE (*CRX) 2 MG/ML INJ IV PUSH (14:03)
[2021-10-13] MEDS: ACETAMINOPHEN 500 MG TABLET 1000 MG PO (14:04)
[2021-10-13 14:08] LABS: Troponin I < 0.012 ng/mL (0.000-0.034)
== END 2021-10-13 17:44 | disposition home or self-care (01) ==
PROVIDERS: Emergency Medicine; Emergency Provider Emergency Medicine; PCP Internal Medicine
DX: S29.012A Strain of muscle and tendon of back wall of thorax, initial encounter (principal); R10.9 Unspecified abdominal pain; F03.90 Unspecified dementia, unspecified severity, without behavioral disturbance, psychotic disturbance, mood disturbance, and anxiety; I10 Essential (primary) hypertension; E03.9 Hypothyroidism, unspecified; M81.0 Age-related osteoporosis without current pathological fracture; M19.90 Unspecified osteoarthritis, unspecified site; R94.31 Abnormal electrocardiogram [ECG] [EKG]; N20.0 Calculus of kidney; X58.XXXA Exposure to other specified factors, initial encounter
CPT/HCPCS: 36415; 71046; 72128; 74176; 80053; 81003; 84484; 85025; 93005; 96374; 99284; A9270; J2270; J7030

== ENCOUNTER 2021-10-29 10:31 | Outpatient (CLI) | payer MEDICARE, SELFPAY ==
[2021-10-29 11:01] LABS: Appearance Urine Clear (Clear); Bilirubin Urine Negative (Negative); Blood Urine Negative (Negative); Color Urine Yellow (Yellow); Glucose Urine UA Negative (Negative); Ketones Urine Negative (Negative); Leukocyte Esterase Ur Trace LEU/UL (Negative); Nitrate Urine Negative (Negative); Protein Urine Negative (Negative); Specific Grav Ur 1.015 (1.001-1.035); Urobilinogen Urine 0.2 mg/dL (<2.0)
[2021-10-29 11:14] LABS: Mucus Urine Rare /lpf; RBC Urine 0-2 /hpf (0-2); Squamous Epithelial Cell Urine Rare /hpf (Few)
[2021-10-29 11:15] LABS: Add Urine Microscopic? YES
== END 2021-10-29 10:32 | disposition home or self-care (01) ==
LOC: ANHLAB 10:33
PROVIDERS: PCP Internal Medicine; Visit Provider Internal Medicine
DX: N39.0 Urinary tract infection, site not specified (principal)
CPT/HCPCS: 81001

== ENCOUNTER 2022-03-07 10:42 | Outpatient (CLI) | payer MEDICARE, SELFPAY ==
--- NOTE | ~2022-03-07 | DEXA_ITS ---
Bone Density Report Name: PEYMAN GAMA Age: 81 Sex: Female Ethnicity: White Date of : 1940 Indication: postmenopausal; screening for osteoporosis; height loss; prior fracture; Referring Provider: RADU ESPARZA Study: Bone densitometry was performed. Exam Date: March 07, 2022 Accession number: [id number] Bone Density: Region BMD T-score Z-score Classification AP Spine(L3, L4) 0.927 -1.6 1.4 Osteopenia Femoral Neck (Left) 0.497 -3.2 -0.7 Osteoporosis Total Hip (Left) 0.513 -3.5 -1.2 Osteoporosis Femoral Neck (Right) 0.457 -3.5 -1.1 Osteoporosis Total Hip (Right) 0.579 -3.0 -0.7 Osteoporosis Total Hip Mean 0.546 -3.3 -1.0 Osteoporosis World Health Organization criteria for BMD impression classify patients as: Normal (T-score at or above -1.0), Osteopenia (T-score between -1.0 and -2.5), or Osteoporosis (T-score at or below -2.5). 10-year Fracture Risk: FRAX not reported because: Some T-score for Spine Total or Hip Total or Femoral Neck at or below -2.5 Prior hip or vertebral fracture Treated for osteoporosis Clinical Information Provided by Patient: Have had a previous hip or vertebral fracture Has had a low trauma fracture Is being treated for osteoporosis Has used the following medications: Prolia (i.e. denosumab), Vitamin D, Calcium Patient maximum height was 66.5 Menopause Age: 48 No regular weight bearing exercise Onset of menses at age 11 Number of children 2 Impression: The patient has established osteoporosis, based on the Left Total Hip T-score and the existence of a prior fracture. The patient has risk factors, including: previous fracture. Discussion: It is important to ask patients whether they are taking their medications and to encourage continued and appropriate compliance with their osteoporosis therapies to reduce fracture risk. It is also important to review their risk factors and encourage appropriate calcium and vitamin D intakes, exercise, fall prevention and other lifestyle measures. Follow-Up: Consider a repeat BMD and Vertebral Fracture Assessment (VFA) exam in 2 years or sooner if medically necessary, to reassess this patient's status. Reported by: NIKOLAS on 03/07/2022 1:08:00 PM. Reviewed, dictated and finalized at location Ana DUONG
[2022-03-07 12:14] LABS: Alanine Aminotransferase 18 U/L (6-35); Albumin Level 4.6 g/dL (3.5-5.1); Alkaline Phosphatase 83 U/L (38-126); Anion Gap 11 mmol/L (8-16); Aspartate Amino Transferase 25 U/L (14-36); Bilirubin,Total 0.5 mg/dL (0.2-1.3); Blood Urea Nitrogen 17 mg/dL (7-17); Calcium 9.3 mg/dL (8.4-10.2); Carbon Dioxide 30 mmol/L (22-30); Chloride 99 mmol/L (98-107); Cholesterol 205 mg/dL (0-200); Estimated Glomerular Filt Rate > 60; Glucose 94 mg/dL (65-110); HDL Direct 97 mg/dL; Potassium 3.9 mmol/L (3.4-5.0); Sodium 140 mmol/L (137-145); Triglycerides 75 mg/dL (<150)
[2022-03-07 12:25] LABS: LDL Cholesterol Direct 76 mg/dL
[2022-03-07 12:36] LABS: Free T4 Free Thyroxine 1.49 ng/mL (0.78-2.19); Vitamin D 25 Hydroxy 61.3 ng/mL
== END 2022-03-07 10:43 | disposition home or self-care (01) ==
LOC: ANHIMG 10:44
PROVIDERS: PCP Nurse Practitioner; Visit Provider Internal Medicine Endocrinology, Diabetes & Metabolism
DX: M81.0 Age-related osteoporosis without current pathological fracture (principal); E55.9 Vitamin D deficiency, unspecified; F41.9 Anxiety disorder, unspecified; E78.5 Hyperlipidemia, unspecified; M85.88 Other specified disorders of bone density and structure, other site
CPT/HCPCS: 36415; 77080; 80053; 80061; 82306; 84439; 84443

== ENCOUNTER 2022-08-02 14:39 | Outpatient (CLI) | payer MEDICARE, SELFPAY ==
--- NOTE | ~2022-08-02 | XR_ITS ---
EXAMINATION: XR humerus RT DATE: 08/02/2022 14:55 INDICATION: Intermittent right arm pain. TECHNIQUE: Internal and externally rotated views of the right humerus were obtained. COMPARISON: Right shoulder radiographs dated 12/22/2019 FINDINGS: Diffuse osteopenia. Old healed fracture deformity at the lateral right clavicle. Alignment is otherwi se normal. No acute fracture. Mild osteoarthritis of the glenohumeral, acromioclavicular and elbow madeleine ints. Small heterotopic ossification along the medial margin of the proximal ulna. Soft tissues are o therwise unremarkable. Visualized portion of the right lung is clear. IMPRESSION: 1. Mild osteoarthritis at the right elbow and shoulder. No acute osseous abnormality. Reviewed, dictated and finalized at location A. ERCIAL ATTORNEY IMPRESSION: 1. Mild osteoarthritis at the right elbow and shoulder. No acute osseous abnorm ality.
== END 2022-08-02 14:40 | disposition home or self-care (01) ==
LOC: ANHIMG 14:41
PROVIDERS: PCP Internal Medicine; Visit Provider Nurse Practitioner
DX: M19.011 Primary osteoarthritis, right shoulder (principal); M19.021 Primary osteoarthritis, right elbow
CPT/HCPCS: 73060

== ENCOUNTER 2023-01-06 10:45 | Outpatient (CLI) | payer MEDICARE, SELFPAY ==
[2023-01-06 12:23] LABS: Anion Gap 5 mmol/L (8-16); Blood Urea Nitrogen 22 mg/dL (7-17); Calcium 9.3 mg/dL (8.4-10.2); Carbon Dioxide 33 mmol/L (22-30); Chloride 97 mmol/L (98-107); Cholesterol 214 mg/dL (0-200); Estimated Glomerular Filt Rate > 60; Glucose 94 mg/dL (65-110); HDL Direct 103 mg/dL; Potassium 4.2 mmol/L (3.4-5.0); Sodium 135 mmol/L (137-145); Triglycerides 87 mg/dL (<150)
[2023-01-06 12:34] LABS: LDL Cholesterol Direct 86 mg/dL
[2023-01-06 12:39] LABS: Free T4 Free Thyroxine 1.48 ng/mL (0.78-2.19)
== END 2023-01-06 10:46 | disposition home or self-care (01) ==
LOC: ANHLAB 10:47
PROVIDERS: Internal Medicine Endocrinology, Diabetes & Metabolism; PCP Internal Medicine; Visit Provider Internal Medicine Hematology & Oncology
DX: F41.9 Anxiety disorder, unspecified (principal); E55.9 Vitamin D deficiency, unspecified; E78.5 Hyperlipidemia, unspecified
CPT/HCPCS: 36415; 80048; 80061; 82306; 84439; 84443

== ENCOUNTER 2023-02-04 16:28 | Outpatient (CLI) | payer MEDICARE, SELFPAY ==
[2023-02-04 15:37] LABS: Hematocrit 39.8 % (37.0-47.0); Hemoglobin 12.7 g/dL (12.0-15.0); Mean Corpuscular HGB Conc 31.9 g/dl (32-36); Mean Corpuscular Hemoglobin 29.4 pg (26-34); Mean Corpuscular Volume 92.1 fl (80-100); Mean Platelet Volume 9.5 fl (7.4-10.4); Platelet Count Result 252 k/mm3 (150-375); Red Blood Count 4.32 M/mm3 (4.2-5.4); Red Cell Distribution Width 13.7 % (11.5-14.5); White Blood Count 7.2 K/mm3 (4.5-10.0)
[2023-02-04 16:41] LABS: Iron 47 ug/dL (37-170)
[2023-02-04 16:51] LABS: Percent Iron Saturation 12 % (20-50)
[2023-02-04 17:05] LABS: Folic Acid > 20.0 ng/mL (2.76->20)
== END 2023-02-04 16:29 | disposition home or self-care (01) ==
PROVIDERS: PCP Nurse Practitioner; Visit Provider Nurse Practitioner
DX: R53.83 Other fatigue (principal)
CPT/HCPCS: 36415; 82607; 82746; 83540; 83550; 85027

== ENCOUNTER 2023-02-20 11:33 | Emergency (ER) | payer MEDICARE, SELFPAY ==
[2023-02-20] VITALS (16 sets, daily range): BP systolic 162–211; BP diastolic 81–98; PULSE 67–85; RESP 13–17; TEMP 36.9; O2SAT 96–100
--- NOTE | ~2023-02-20 | XR_ITS ---
EXAMINATION: XR hip RT 2V w AP pelvis DATE: 02/20/2023 12:36 INDICATION: Right hip pain post fall TECHNIQUE: Anteroposterior view of the pelvis and anteroposterior and frog-leg lateral views of the r ight hip were obtained. COMPARISON: CT dated 10/13/2021 FINDINGS: There are old healed fractures of the lateral superior and inferior pubic rami. Is also sagittal orie nted linear sclerosis at the left sacral ala corresponding to a second chronic fracture. There is als o a fracture of the right sacral ala on prior CT which is unable be discerned on the current radiogra phs. No new fractures identified. 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 Suture anchors at the bilateral pubic bodies. Likely Haro catheter . IMPRESSION: 1. 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 No acute osseous abnormality. Reviewed, dictated and finalized at location A. IMPRESSION: 1. Old insufficiency fractures of the bilateral sacral ala and bilateral superi or and inferior pubic rami. No acute osseous abnormality.
--- NOTE | 2023-02-20 13:57 | ED.FALL ---
HPI - Fall General Chief Complaint: Fall Stated Complaint: WEAKNESS, CANT STAND ON R SIDE Time Seen by Provider: 02/20/23 11:42 History of Present Illness HPI Narrative: Patient is an 82-year-old female who presents ER with pain to the right hip. She was laying on her couch and tried to get up when she rolled off landing on her elbow and right hip 5 days ago. Since then she has had pain in her right hip when she stands up. As of today patient was able to ambulate around her apartment with her walker and was able to take a shower on her own. She did not strike her head or lose consciousness. She has no new numbness or tingling. She has history of hip and pelvic fractures in the past that did not require surgery. Related Data Home Medications Medication Instructions Recorded Confirmed multivitamin 1 tablet PO DAILY 04/26/20 02/04/23 calcium carbonate 500 mg calcium 500 mg PO BID 01/16/22 02/04/23 (1,250 mg) chewable tablet (Calcium 500) Allergies Allergy/AdvReac Type Severity Reaction Status Date / Time nitrofurantoin AdvReac Itching Verified 02/04/23 14:11 [From Macrobid] Review of Systems Review of Systems: All systems reviewed & are unremarkable except as noted in HPI and below Cardiovascular: Cardiovascular: Reports no additional cardiovascular complaints Respiratory: Respiratory: Reports no additional respiratory complaints Gastrointestinal: Gastrointestinal: Reports no additional gastrointestinal complaints Musculoskeletal: Musculoskeletal: Denies myalgias, Reports arthralgias, Denies joint swelling and Denies muscle cramps Integumentary/Breasts: Skin/Breast: Denies erythema and Denies rash Neurologic: Denies syncope, Denies headache(s), Denies focal weakness and Denies numbness [facility] Past Medical History Medical History Acquired hypothyroidism Age-related osteoporosis with current pathological fracture Arthritis Back pain Dermatitis Dyshidrotic dermatitis Forgetfulness Generalized weakness H/O: HTN (hypertension) History of fractured pelvis (~02/2020) IFG (impaired fasting glucose) Osteoporosis Osteoporosis Rotator cuff strain Rotator cuff tear, right Thyroid disease Family History Family History Mother Diabetes mellitus Hypertension Father Pancreatic cancer Other Family history of congestive heart failure Social History Social History Smoking status: Never smoker Second hand tobacco smoke exposure: No Alcohol intake: never Substance use: never Substance use type: does not use Lack of Transportation: YES Lack of Food: Never True Current Housing: I Have Housing Concerned About Future Housing: No Difficulty Paying Gas/Electric Bills: No Difficulty Paying for Meds: No Currently Unemployed: No Education: High School Diploma/GED Difficulty w/ Childcare or Family Care: No Spiritual care concerns: No Exam Narrative: GENERAL: Frail-appearing, and in no acute distress. HEAD: Normocephalic, atraumatic. EYES: PERRL and EOMI. ENT: Mucous membranes moist. Fever blister left upper lip. CHEST: Clear to auscultation. No respiratory distress. HEART: Regular rate and rhythm. Normal peripheral pulses. ABDOMEN: Soft, nontender, nondistended. EXTREMITIES: Normal range of motion. No edema. SKIN: Warm, dry, no rash. NEURO: Alert and oriented x3. PSYCH: Normal mood and affect. Course Course Emergency Course: Patient up and ambulatory without issue. No evidence of fracture. Patient reports no pain prior to today. She may have a muscle injury we also discussed possibility of occult pelvic fracture which is read and is weight-bearing as tolerated and pain control. Patient appropriate for discharge home. Vital Signs Vital signs: Vital Signs Temperature 98.5 F 0
== END 2023-02-20 16:58 | disposition home or self-care (01) ==
PROVIDERS: Emergency Provider Emergency Medicine; PCP Nurse Practitioner
DX: S79.911A Unspecified injury of right hip, initial encounter (principal); I10 Essential (primary) hypertension; E03.9 Hypothyroidism, unspecified; M81.0 Age-related osteoporosis without current pathological fracture; M19.90 Unspecified osteoarthritis, unspecified site; W08.XXXA Fall from other furniture, initial encounter
CPT/HCPCS: 73502; 99283

== ENCOUNTER 2023-07-23 14:39 | Outpatient (CLI) | payer MEDICARE, SELFPAY ==
[2023-07-23 16:33] LABS: Anion Gap 5 mmol/L (8-16); Blood Urea Nitrogen 25 mg/dL (7-17); Calcium 9.5 mg/dL (8.4-10.2); Carbon Dioxide 28 mmol/L (22-30); Chloride 104 mmol/L (98-107); Estimated Glomerular Filt Rate > 60; Glucose 90 mg/dL (65-110); Potassium 4.2 mmol/L (3.4-5.0); Sodium 137 mmol/L (137-145)
[2023-07-23 16:51] LABS: Free T4 Free Thyroxine 1.29 ng/mL (0.78-2.19); Vitamin D 25 Hydroxy 45.5 ng/mL
[2023-07-23 17:04] LABS: Thyroid Stimulating Hormone 0.904 uIU/mL (0.465-4.680)
== END 2023-07-23 14:40 | disposition home or self-care (01) ==
LOC: ANHWCLAB 14:42
PROVIDERS: PCP Nurse Practitioner; Visit Provider Nurse Practitioner Family
DX: E03.9 Hypothyroidism, unspecified (principal); E55.9 Vitamin D deficiency, unspecified; F41.9 Anxiety disorder, unspecified; M81.0 Age-related osteoporosis without current pathological fracture; R53.1 Weakness
CPT/HCPCS: 36415; 80048; 82306; 84439; 84443

== ENCOUNTER 2023-08-12 14:39 | Outpatient (CLI) | payer MEDICARE, SELFPAY ==
--- NOTE | ~2023-08-12 | US_ITS ---
EXAMINATION: US venous doppler [facility] DATE: 08/12/2023 15:14 INDICATION: M79.89 - Other specified soft tissue disorders . TECHNIQUE: Grayscale images without and with compression and Doppler images of the left lower extremi ty veins were obtained. COMPARISON: None FINDINGS: The left common femoral vein, profunda (deep) femoral vein, femoral vein, popliteal vein, peroneal v ein, posterior tibial veins, gastrocnemius vein, and greater saphenous vein are patent. IMPRESSION: Patent left lower extremity veins. No evidence of deep venous thrombosis. Reviewed, dictated and finalized at location K.
== END 2023-08-12 14:40 | disposition home or self-care (01) ==
LOC: ANHIMG 14:41
PROVIDERS: PCP Nurse Practitioner; Visit Provider Nurse Practitioner
DX: M79.89 Other specified soft tissue disorders (principal)
CPT/HCPCS: 93971

== ENCOUNTER 2023-10-16 12:37 | Outpatient (CLI) | payer MEDICARE, SELFPAY | END 2023-10-16 12:38 | disposition home or self-care (01) | PROVIDERS: PCP Nurse Practitioner; Visit Provider Urology | DX: N39.41 Urge incontinence (principal) | CPT/HCPCS: 87077; 87086; 87088; 87186 ==

== ENCOUNTER 2023-10-27 04:29 | Day surgery (SDC) | payer MEDICARE, SELFPAY ==
--- NOTE | 2023-10-14 13:37 | PC.NURSE ---
Report to the Outpatient Waiting Room, entrance under the green pavilion located off [facility], at time __9:15AM on date ___10/27/23____. Planned Procedure Time: ___11:15AM . Time changes happen often and if your time is changed the preop area will call you the afternoon before. - You and your visitor will be asked to self-screen and do not enter if you have any COVID symptoms. - A mask is optional within the hospital at this time. Patients may have clear liquids (water, carbonated beverages, clear teas, apple juice) until 3 hours prior to surgery with a maximum of 20 ounces. - No food from midnight until time of surgery. Take the following medications with a SIP of water the morning of surgery: ___LEVOTHYROXINE DO NOT STOP ANY OF YOUR OTHER PRESCRIPTION MEDICATIONS PRIOR TO SURGERY ?EXCEPT THE FOLLOWING Medications to discontinue per physician HOLD ALL VITAMINS/SUPPLEMENTS 7 DAYS PRE-OP PER DR GIANG(PER PATIENT)____ Date to take last dose 10/19/23 Please no make-up, nail thai, hairspray, perfume, deodorant, or body powder the day of surgery. No jewelry (including any body piercings) or valuables the day of surgery, leave them at home. Please take a shower or bath the night before, or the morning of, surgery with an antibacterial soap. Wear comfortable, loose fitting clothing. - Jewelry must be removed prior to entering the operating room. Rings and piercings that are not removed may be cut off. - The hospital will not accept responsibility for valuables. - Please leave all valuables, including medications, at home the day of surgery. If you are going home after surgery, a licensed ups driver must drive you home. - NO public transportation without another adult if you receive anesthesia. - We recommend that an adult stay with you for 24 hours following discharge. - We also recommend that you do not drive, make important decision, drink alcoholic beverages, or take any drugs that were not prescribed by your health care provider for at least 24 hours after your discharge time. Follow any additional instructions given to you from your surgeon. If you or anyone in your household have experienced Covid symptoms in the past week, please notify your surgeon or the nurse liaison at the phone number below for possible testing. Telephone instructions given to ___PATIENT and asked if any additional questions and then verbalized understanding. Patient advised to call surgeon office or pre surgery nurse liaison [phone] if any additional questions.
[2023-10-14 13:42] VITALS: BMI 17.7
--- NOTE | 2023-10-25 19:21 | PM.IMHP ---
H&P: HPI History of Present Illness Date/Time: 10/25/23 19:21 Chief Complaint: Incontinence Narrative: she has mixed incontinence. She gets Botox for her urge incontinence. She presents for bulking agent for intrinsic sphincter deficiency Review of Systems Review of Systems: All systems reviewed & are unremarkable except as noted in HPI and below PMFSH Past Medical History Medical History Acquired hypothyroidism Age-related osteoporosis with current pathological fracture Arthritis Back pain Dermatitis Dyshidrotic dermatitis Forgetfulness Generalized weakness H/O: HTN (hypertension) History of fractured pelvis (~02/2020) IFG (impaired fasting glucose) Osteoporosis Osteoporosis Rotator cuff strain Rotator cuff tear, right Thyroid disease Family History Family History Mother Diabetes mellitus Hypertension Father Pancreatic cancer Other Family history of congestive heart failure Social History Social History Smoking status: Never smoker Second hand tobacco smoke exposure: No Alcohol intake: never Substance use: never Substance use type: does not use Lack of Transportation: YES Lack of Food: Never True Current Housing: I Have Housing Concerned About Future Housing: No Difficulty Paying Gas/Electric Bills: No Difficulty Paying for Meds: No Currently Unemployed: No Education: High School Diploma/GED Difficulty w/ Childcare or Family Care: No Living arrangements: alone Spiritual care concerns: No Meds Home Medications and Allergies Home Medications Medication Instructions Recorded Confirmed Type multivitamin 1 tablet PO DAILY 04/26/20 10/14/23 History denosumab 60 mg/mL subcutaneous 60 mg subcut [id number] #1 mL 03/28/21 10/14/23 Rx syringe (Prolia) calcium carbonate (Calcium 500) 500 mg PO DAILY 01/16/22 10/14/23 History levothyroxine 88 mcg tablet 88 mcg PO QAM 10/14/23 10/14/23 History amoxicillin 500 mg-potassium 1 tablet PO Q12H #14 tabs 10/20/23 Rx clavulanate 125 mg tablet lovastatin 20 mg tablet See Rx Instructions .Route 10/24/23 Rx .COMPLEX #90 tabs Allergies Allergy/AdvReac Type Severity Reaction Status Date / Time nitrofurantoin AdvReac Itching Verified 10/14/23 13:40 [From Macrobid] Exam Narrative: no acute distress normal breathing fixed urethra Assessment and Plan Assessment and plan (1) Intrinsic sphincter deficiency (ISD): Code(s): N36.42 - Intrinsic sphincter deficiency (ISD) Status: Acute Assessment and Plan: urethral bulking agent. Understands risks of bleeding, infection, lack of efficacy, need for repeat procedures, urinary retention. Agrees to proceed
--- NOTE | 2023-10-27 04:43 | WPDHPUPDATE1 ---
History and Physical Update Update Date/Time: 10/27/23 04:43 History and Physical has been reviewed, including an updated exam of the patient. There are NO changes in the patient's condition. Risks, benefits, and alternatives have been discussed and questions answered. Patient agrees to proceed with procedure.
[2023-10-27 09:30] VITALS: BP 154/79; PULSE 78; RESP 14; TEMP 36.6; O2SAT 95
[2023-10-27] MEDS: LIDOCAINE HCL 2% GEL UROJET 10 ML PKG MUCOUS MEM (10:09)
--- NOTE | 2023-10-27 10:25 | WPDANESEPPF ---
Anes - Initial Pre Proc Eval Procedure: Operation Date: 10/27/23 10:30 Proposed Procedures p Cystoscopy, Injection Bulking Agent - Ramu Taylor MD Date/Time: 10/27/23 10:25 Surgeon: Ramu Taylor MD Pre Op Diagnosis: sensory urge incontinence Patient Data Age: 83 Gender: F Height: 1.57 m Weight: 41 kg Last Vital Signs Temp 97.8 F 10/27/23 09:30 Pulse 78 10/27/23 09:30 Resp 14 10/27/23 09:30 BP 154/79 H 10/27/23 09:30 Pulse Ox 95 10/27/23 09:30 O2 Del Method Room Air 10/27/23 09:30 Allergies Allergy/AdvReac Type Severity Reaction Status Date / Time nitrofurantoin AdvReac Itching Verified 10/14/23 13:40 [From Macrobid] Home Medications Medication Instructions Recorded Confirmed Type multivitamin 1 tablet PO DAILY 04/26/20 10/14/23 History denosumab 60 mg/mL subcutaneous 60 mg subcut [id number] #1 mL 03/28/21 10/14/23 Rx syringe (Prolia) calcium carbonate (Calcium 500) 500 mg PO DAILY 01/16/22 10/14/23 History levothyroxine 88 mcg tablet 88 mcg PO QAM 10/14/23 10/14/23 History amoxicillin 500 mg-potassium 1 tablet PO Q12H #14 tabs 10/20/23 Rx clavulanate 125 mg tablet lovastatin 20 mg tablet See Rx Instructions .Route 10/24/23 Rx .COMPLEX #90 tabs Patient hx anesthesia problems: none Family hx anesthesia problems: none Results Review: All pre-operative results and documents have been reviewed as part of the pre-operative evaluation. [facility] Past Medical History Medical History Acquired hypothyroidism Age-related osteoporosis with current pathological fracture Arthritis Back pain Dermatitis Dyshidrotic dermatitis Forgetfulness Generalized weakness H/O: HTN (hypertension) History of fractured pelvis (~02/2020) IFG (impaired fasting glucose) Osteoporosis Osteoporosis Rotator cuff strain Rotator cuff tear, right Thyroid disease Family History Family History Mother Diabetes mellitus Hypertension Father Pancreatic cancer Other Family history of congestive heart failure Social History Social History Smoking status: Never smoker Second hand tobacco smoke exposure: No Alcohol intake: never Substance use: never Substance use type: does not use Lack of Transportation: YES Lack of Food: Never True Current Housing: I Have Housing Concerned About Future Housing: No Difficulty Paying Gas/Electric Bills: No Difficulty Paying for Meds: No Currently Unemployed: No Education: High School Diploma/GED Difficulty w/ Childcare or Family Care: No Living arrangements: alone Spiritual care concerns: No Anes - Eval Final PreProcedure Day of Procedure 10/27/23 10:25 Patient weight: normal Heart: regular rate and rhythm Lungs: clear to auscultation Airway: Mallampati scale class III Neurological: alert and oriented Last oral intake: >/= 8 hours ASA classification: III Emergent: no Anesthetic plan: proceed Anesthesia type and monitoring: general GIVS and standard monitoring Results Review: All pre-operative results and documents have been reviewed as part of the pre-operative evaluation. Informed Consent: The patient's anesthetic plan and its attendant risks and benefits were discussed with the patient/family/POA. Questions were solicited and answers provided to the satisfaction of the patient/family/POA.
[2023-10-27] MEDS: ceFAZolin 2 GM/D5W 50 ML 2 GM/50 ML BAG IVPB (10:29)
--- NOTE | 2023-10-27 10:57 | W.PM.PROC2 ---
Procedure Note - Detailed Date of Procedure 10/27/23 Pre-op Diagnosis Intrinsic sphincter deficiency Post-op Diagnosis Same Procedure Performed Cystoscopy with suburethral injection of implant material Surgeon Ramu Taylor MD [employer] None Anesthesia MAC and Local Indications This woman mixed incontinence. She presents today for treatment of intrinsic sphincter deficiency. She understands will not help her urgency. We will undergo a bulking agent. She understands risks of bleeding, infection, recurrent or persistent incontinence, urinary retention. I also attempted to establish realistic expectations surrounding improvement. She agrees to proceed Description of Procedure She was correctly identified. Informed consent obtained. She from the operating room. She was given lidocaine jelly and monitored anesthesia care. She was prepped and draped sterile fashion. Time-out performed. Cystoscopy revealed a moderate lead trabeculated bladder without significant other bladder abnormalities. Urethra is open consistent with intrinsic sphincter deficiency. There is no tumors or stones within the bladder. I chose a site in the mid urethra 2 cm distal bladder neck. I injected bulking agent circumferentially. I performed several pillows coapted the urethra. I used 1-1/2 syringe. There was good bulking effect. There was no leakage on Crede a. She was awakened transferred to PACU in stable condition. Estimated Blood Loss 1 Complications No immediate complications Condition Stable Disposition PACU
[2023-10-27 10:58] VITALS: BP 125/64; PULSE 66; RESP 18; O2SAT 97
[2023-10-27] MEDS: LACTATED RINGERS 1,000 ML 30 ML IV CONT (10:58)
[2023-10-27 11:30] VITALS: BP 124/62; PULSE 65; RESP 16
[2023-10-27 12:00] VITALS: BP 160/93; PULSE 61; RESP 16
== END 2023-10-27 12:22 | disposition home or self-care (01) ==
PROVIDERS: PCP Nurse Practitioner; Visit Provider Urology
PROC: 3E0K8GC Introduction of Other Therapeutic Substance into Genitourinary Tract, Via Natural or Artificial Opening Endoscopic (ICD-10-PCS; CPT 51715; principal; 2023-10-27 10:30)
DX: N36.42 Intrinsic sphincter deficiency (ISD) (principal); N39.41 Urge incontinence; E03.9 Hypothyroidism, unspecified; M81.0 Age-related osteoporosis without current pathological fracture; I10 Essential (primary) hypertension
CPT/HCPCS: 51715; J0690; J2704; J7120; L8606

== ENCOUNTER 2024-01-12 10:42 | Outpatient (CLI) | payer MEDICARE, SELFPAY ==
[2024-01-12 11:15] LABS: Alanine Aminotransferase 22 U/L (6-35); Albumin Level 4.2 g/dL (3.5-5.1); Alkaline Phosphatase 91 U/L (38-126); Anion Gap 5 mmol/L (4-12); Aspartate Amino Transferase 32 U/L (14-36); Bilirubin,Total 0.4 mg/dL (0.2-1.3); Blood Urea Nitrogen 30 mg/dL (7-17); Calcium 9.3 mg/dL (8.4-10.2); Carbon Dioxide 35 mmol/L (22-30); Chloride 100 mmol/L (98-107); Cholesterol 200 mg/dL (0-200); Estimated Glomerular Filt Rate > 60; Glucose 95 mg/dL (65-110); HDL Direct 98 mg/dL; Potassium 4.2 mmol/L (3.4-5.0); Sodium 140 mmol/L (137-145); Triglycerides 77 mg/dL (<150)
[2024-01-12 11:26] LABS: LDL Cholesterol Direct 80 mg/dL
== END 2024-01-12 10:43 | disposition home or self-care (01) ==
LOC: ANHLAB 10:56
PROVIDERS: PCP Nurse Practitioner; Visit Provider Internal Medicine Hematology & Oncology
DX: E78.5 Hyperlipidemia, unspecified (principal); E03.9 Hypothyroidism, unspecified
CPT/HCPCS: 36415; 80053; 80061; 84439; 84443

== ENCOUNTER 2024-03-12 00:23 | Day surgery (SDC) | payer MEDICARE, SELFPAY ==
--- NOTE | 2024-03-07 17:29 | PM.IMHP ---
H&P: HPI History of Present Illness Date/Time: 03/07/24 17:29 Chief Complaint: ISD Narrative: repeat bulking agent Review of Systems Review of Systems: All systems reviewed & are unremarkable except as noted in HPI and below PMFSH Past Medical History Medical History Acquired hypothyroidism Age-related osteoporosis with current pathological fracture Arthritis Back pain Dermatitis Dyshidrotic dermatitis Forgetfulness Generalized weakness H/O: HTN (hypertension) History of fractured pelvis (~02/2020) IFG (impaired fasting glucose) Osteoporosis Osteoporosis Rotator cuff strain Rotator cuff tear, right Thyroid disease Family History Family History Mother Diabetes mellitus Hypertension Father Pancreatic cancer Other Family history of congestive heart failure Social History Social History Smoking status: Never smoker Second hand tobacco smoke exposure: No Alcohol intake: never Substance use: never Substance use type: does not use Lack of Transportation: YES Lack of Food: Never True Current Housing: I Have Housing Concerned About Future Housing: No Difficulty Paying Gas/Electric Bills: No Difficulty Paying for Meds: No Currently Unemployed: No Education: High School Diploma/GED Difficulty w/ Childcare or Family Care: No Living arrangements: alone Spiritual care concerns: No Meds Home Medications and Allergies Home Medications Medication Instructions Recorded Confirmed Type multivitamin 1 tablet PO DAILY 04/26/20 01/22/24 History denosumab 60 mg/mL subcutaneous 60 mg subcut [id number] #1 mL 03/28/21 01/22/24 Rx syringe (Prolia) calcium carbonate (Calcium 500) 500 mg PO DAILY 01/16/22 01/22/24 History lovastatin 20 mg tablet See Rx Instructions .Route 12/25/23 01/22/24 Rx .COMPLEX #90 tabs levothyroxine 88 mcg tablet 88 mcg PO QAM #90 tabs 01/22/24 01/22/24 Rx Allergies Allergy/AdvReac Type Severity Reaction Status Date / Time nitrofurantoin AdvReac Itching Verified 01/22/24 13:28 [From Macrobid] Exam Narrative: fixed urethra Assessment and Plan Assessment and plan (1) Intrinsic sphincter deficiency (ISD): Code(s): N36.42 - Intrinsic sphincter deficiency (ISD) Status: Acute Assessment and Plan: repeat bulking agent
--- NOTE | 2024-03-08 09:13 | PC.NURSE ---
Report to the Outpatient Waiting Room, entrance under the green pavilion located off [facility], at time 8 AM on date 03/12/24 . Planned Procedure Time: _10 AM .? Time changes happen often and if your time is changed the preop area will call you the afternoon before. - You and your visitor will be asked to self-screen and do not enter if you have any COVID symptoms. Please call surgeon if you need to reschedule. - A mask is optional within the hospital at this time. Patients may have clear liquids (water, carbonated beverages, clear teas, apple juice) until 3 hours prior to surgery( 7 AM) with a maximum of 20 ounces. - No food from midnight until time of surgery and no smoking - Infants may have breast milk until 4 hours before surgery, infant formula 6 hours prior to surgery. - Children will be allowed to drink immediately following surgery.? If applicable, please bring a bottle or sippy cup to assist with drinking. Juice, water, soda, and popsicles are readily available.? For infants on formula, please bring formula the day of surgery.? Pacifiers are allowed. Take only the following medications with a SIP of water on the morning of surgery: __LEVOTHYROXINE DO NOT STOP ANY OF YOUR OTHER PRESCRIPTION MEDICATIONS PRIOR TO SURGERY EXCEPT THE FOLLOWING Medications to discontinue per physician _HOLD ALL VITAMINS AND SUPPLEMENTS 3 DAYS PRE OP Date to take last dose__03/08/24 Please no make-up, nail swedish, hairspray, perfume, deodorant, or body powder the day of surgery.? No jewelry (including any body piercings) or valuables the day of surgery, leave them at home.? Please take a shower or bath the night before, or the morning of, surgery with an antibacterial soap.? Wear comfortable, loose fitting clothing.? Children are encouraged to wear pajamas. - Jewelry must be removed prior to entering the operating room.? Rings and piercings that are not removed may be cut off. - The hospital will not accept responsibility for valuables.? - Please leave all valuables, including medications, at home the day of surgery. If you are going home after surgery, a licensed commercial collections driver must drive you home.? - NO public transportation without another adult if you receive anesthesia. - We recommend that an adult stay with you for 24 hours following discharge. - We also recommend that you do not drive, make important decision, drink alcoholic beverages, or take any drugs that were not prescribed by your health care provider for at least 24 hours after your discharge time. Follow any additional instructions given to you from your surgeon. Telephone instructions given to __PATIENT and asked if any additional questions and then verbalized understanding. Patient advised to call surgeon office or pre surgery nurse liaison [phone] if any additional questions.
[2024-03-08 09:20] VITALS: BMI 17.4
--- NOTE | 2024-03-11 14:39 | P.PNAN_ITS ---
Anes - Initial Pre Proc Eval Procedure: Operation Date: 03/12/24 10:00 Proposed Procedures p Cystoscopy, Injection Bulking Agent - Ramu Taylor MD Date/Time: 03/11/24 14:39 Surgeon: Ramu Taylor MD Pre Op Diagnosis: ID Patient Data Age: 83 Gender: F Height: 1.57 m Weight: 43.1 kg Allergies Allergy/AdvReac Type Severity Reaction Status Date / Time nitrofurantoin AdvReac Itching Verified 03/08/24 09:09 [From Macrobid] Home Medications Medication Instructions Recorded Confirmed Type multivitamin 1 tablet PO DAILY 04/26/20 03/08/24 History denosumab 60 mg/mL subcutaneous 60 mg subcut [id number] #1 mL 03/28/21 03/08/24 Rx syringe (Prolia) calcium carbonate (Calcium 500) 500 mg PO DAILY 01/16/22 03/08/24 History lovastatin 20 mg tablet See Rx Instructions .Route 12/25/23 03/08/24 Rx .COMPLEX #90 tabs levothyroxine 88 mcg tablet 88 mcg PO QAM #90 tabs 01/22/24 03/08/24 Rx Patient hx anesthesia problems: none Family hx anesthesia problems: none Results Review: All pre-operative results and documents have been reviewed as part of the pre- operative evaluation. REPLACED BY [facility] Past Medical History Medical History Acquired hypothyroidism Age-related osteoporosis with current pathological fracture Arthritis Back pain Dermatitis Dyshidrotic dermatitis Forgetfulness Generalized weakness H/O: HTN (hypertension) History of fractured pelvis (~02/2020) IFG (impaired fasting glucose) Osteoporosis Osteoporosis Rotator cuff strain Rotator cuff tear, right Thyroid disease Family History Family History Mother Diabetes mellitus Hypertension Father Pancreatic cancer Other Family history of congestive heart failure Social History Social History Smoking status: Never smoker Second hand tobacco smoke exposure: No Alcohol intake: never Substance use: never Substance use type: does not use Lack of Transportation: YES Lack of Food: Never True Current Housing: I Have Housing Concerned About Future Housing: No Difficulty Paying Gas/Electric Bills: No Difficulty Paying for Meds: No Currently Unemployed: No Education: High School Diploma/GED Difficulty w/ Childcare or Family Care: No Living arrangements: alone Spiritual care concerns: No Anes - Eval Final PreProcedure Day of Procedure 03/11/24 14:39 Patient weight: cachectic Heart: regular rate and rhythm Lungs: clear to auscultation and normal air movement Airway: Mallampati scale class II Neurological: alert and oriented Last oral intake: >/= 8 hours ASA classification: III Emergent: no Anesthetic plan: proceed Anesthesia type and monitoring: general GIVS and standard monitoring Results Review: All pre-operative results and documents have been reviewed as part of the pre- operative evaluation. Informed Consent: The patient's anesthetic plan and its attendant risks and benefits were discussed with the patient/family/POA. Questions were solicited and answers provided to the satisfaction of the patient/family/POA.
--- NOTE | 2024-03-12 04:22 | WPDHPUPDATE1 ---
History and Physical Update Update Date/Time: 03/12/24 04:22 History and Physical has been reviewed, including an updated exam of the patient. There are NO changes in the patient's condition. Risks, benefits, and alternatives have been discussed and questions answered. Patient agrees to proceed with procedure.
[2024-03-12 09:15] VITALS: BP 154/85; PULSE 78; RESP 14; TEMP 36.8; O2SAT 98
[2024-03-12] MEDS: LACTATED RINGERS 1,000 ML 30 ML IV CONT (09:15)
[2024-03-12] MEDS: ceFAZolin 2 GM/D5W 50 ML 2 GM/50 ML BAG IVPB (09:31)
[2024-03-12] MEDS: LIDOCAINE HCL 2% GEL UROJET 10 ML PKG MUCOUS MEM (09:41)
--- NOTE | 2024-03-12 09:51 | W.PM.PROC2 ---
Procedure Note - Detailed Date of Procedure 03/12/24 Pre-op Diagnosis Intrinsic sphincter deficiency Post-op Diagnosis Same Procedure Performed Cystoscopy with suburethral injection of implant material Surgeon Ramu Taylor MD Anesthesia MAC and Local (Uro jet) Indications This 1 mixed incontinence. She has received Botox for her urge incontinence. She has had a previous bulking agent for her intrinsic sphincter deficiency. She is here for a repeat bulking agent or a ?topping off?. She understands it will not help her urge incontinence. She also understands risks of bleeding, infection, lack of efficacy, need for repeat procedures. She also understands of going for improved rather the care. She understands the risk of urinary retention requiring catheterization Findings Some evidence of prior bulking agent. Open urethra consistent with intrinsic sphincter deficiency Description of Procedure She was correctly identified. Informed consent obtained. She brought the operating room. She was given monitored anesthesia care. She was placed in dorsal lithotomy position. She was prepped and draped sterile fashion. Given appropriate perioperative antibiotics. Time-out performed. Cystoscopy revealed a normal-appearing bladder. There was evidence of previous bulking effect the bladder neck. The urethra was open consistent with intrinsic sphincter deficiency. I chose a site in the mid urethra 2 cm distal bladder neck. I injected bulking agent circumferentially. I used 2 syringes total. There was adequate bulking effect. Her bladder was left partially full. She was awakened transferred to PACU in stable condition. Estimated Blood Loss 0 Complications No immediate complications Condition Stable Disposition PACU
[2024-03-12 09:52] VITALS: BP 145/67; PULSE 70; RESP 16; O2SAT 100
[2024-03-12 10:20] VITALS: BP 120/59; PULSE 68; RESP 16; O2SAT 100
[2024-03-12 10:50] VITALS: BP 165/88; PULSE 63; RESP 16
[2024-03-12 11:20] VITALS: BP 155/82; PULSE 66; RESP 18
== END 2024-03-12 11:40 | disposition home or self-care (01) ==
PROVIDERS: PCP Nurse Practitioner; Visit Provider Urology
PROC: 3E0K8GC Introduction of Other Therapeutic Substance into Genitourinary Tract, Via Natural or Artificial Opening Endoscopic (ICD-10-PCS; CPT 51715; principal; 2024-03-12 10:00)
DX: N36.42 Intrinsic sphincter deficiency (ISD) (principal)
CPT/HCPCS: 51715; J0690; J2003; J2704; J7120; L8606

== ENCOUNTER 2024-07-09 11:54 | Outpatient (CLI) | payer MEDICARE, SELFPAY ==
--- NOTE | ~2024-07-09 | DEXA_ITS ---
Bone Density Report Name: PEYMAN GAMA Age: 84 Sex: Female Ethnicity: White Date of : 1940 Indication: postmenopausal osteoporosis; monitoring treatment; height loss; prior fracture; Referring Provider: RADU ESPARZA Study: Bone densitometry was performed. Exam Date: July 09, 2024 Accession number: [id number] Bone Density: Region BMD T-score Z-score Classification AP Spine(L3, L4) 0.948 -1.4 1.6 Osteopenia Femoral Neck (Left) 0.499 -3.2 -0.6 Osteoporosis Total Hip (Left) 0.572 -3.0 -0.7 Osteoporosis Femoral Neck (Right) 0.469 -3.4 -0.9 Osteoporosis Total Hip (Right) 0.699 -2.0 0.3 Osteopenia Total Hip Mean 0.635 -2.5 -0.2 Osteoporosis World Health Organization criteria for BMD impression classify patients as: Normal (T-score at or above -1.0), Osteopenia (T-score between -1.0 and -2.5), or Osteoporosis (T-score at or below -2.5). 10-year Fracture Risk: FRAX not reported because: Some T-score for Spine Total or Hip Total or Femoral Neck at or below -2.5 Treated for osteoporosis Previous Exams: Region Exam Age BMD T-score BMD Change BMD Change Date g/cm2 vs Baseline vs Previous AP Spine (L3-L4) 07/09/2024 84 0.948 -1.4 0.063 (7.1%)# 0.021 (2.3%)# 03/07/2022 81 0.927 -1.6 0.042 (4.7%)* 0.034 (3.8%)* 01/03/2020 79 0.893 -1.9 0.008 (0.9%) 0.008 (0.9%) 10/27/2018 78 0.885 -2.0 Total Hip(Left) 07/09/2024 84 0.572 -3.0 0.069 (13.7%)# 0.059 (11.6%)# 03/07/2022 81 0.513 -3.5 0.010 (1.9%)# -0.029 (-5.3%) 01/03/2020 79 0.541 -3.3 0.038 (7.6%)* 0.038 (7.6%)* 10/27/2018 78 0.503 -3.6 Total Hip(Right) 07/09/2024 84 0.699 -2.0 0.154 (28.3%)# 0.120 (20.7%)# 03/07/2022 81 0.579 -3.0 0.034 (6.3%)* 0.008 (1.4%) 01/03/2020 79 0.571 -3.0 0.026 (4.8%) 0.026 (4.8%) 10/27/2018 78 0.544 -3.3 *Denotes significance at 95% confidence level, LSC for AP Spine = 0.022 g/cm2, LSC for Total Hip = 0.027 g/cm2 # Denotes dissimilar scan types or analysis methods Clinical Information Provided by Patient: Has had a low trauma fracture Is being treated for osteoporosis Has used the following medications: Fosamax (i.e. alendronate), Prolia (i.e. denosumab), Vitamin D, Calcium Patient maximum height was 66.5 Menopause Age: 48 No regular weight bearing exercise Onset of menses at age 11 Number of children 2 Impression: The patient has established osteoporosis, based on the Right Femoral Neck T-score and the existence of a prior fracture. The patient has risk factors, including: previous fracture. No significant bone loss was observed. Discussion: PATIENT UNDER TREATMENT WITH NO SIGNIFICANT BMD LOSS SINCE LAST EXAM. In an untreated patient, BMD typically declines with age. A lack of decline or gain is usually a sign that treatment is efficacious and fracture risk is reduced. It is important to ask patients whether they are taking their medications and to encourage continued and appropriate compliance with their osteoporosis therapies to reduce fracture risk. It is also important to review their risk factors and encourage appropriate calcium and vitamin D intakes, exercise, fall prevention and other lifestyle measures. Follow-Up: Consider a repeat BMD and Vertebral Fracture Assessment (VFA) exam in 2 years or sooner if medically necessary, to reassess this patient's status. Reported by: NIKOLAS on 07/09/2024 12:29:00 PM. Reviewed, dictated and finalized at location A.
--- OUTSIDE RECORDS SUMMARY | 2024-07-09 11:59 | XMS_ITS | Clinical Summary ---
Author Organization [facility] Address [address] [place] [address] Care Team Providers Care Professional Nursing Assistant Name Role Phone Unavailable Primary Care Provider Unavailabl e Social History Tobacco Use Types Packs/Day Years Used Date Smoking Tobacco: Never Assessed Comments Unknown Sex and Gender Information Value Date Recorded Sex Assigned at Not on file Legal Sex Female 8:00 PM CDT Gender Identity Not on file Sexual Orientation Not on file Plan of Treatment Health Maintenance Due Date Last Done Comments DTaP, Tdap and Td Vaccines ( 1 - Tdap) 1957 Zoster Vaccines (1 of 2) 1988 Pneumococcal Vaccine: 65+ Ye ars (1 of 1 - PCV) 2003 RSV Immunization or 60+ Years (1 - 1-dose 75+ series) 2013 COVID-19 Vaccine (2023-2 5 season) 2024 Influenza Adult (#1) 2024 Meningococcal B Vaccine Aged Out No l onger eligible based on patient's age to complete this topic Meningococcal Vaccine Aged Out No krista alonso eligible based on patient's age to complete this topic RSV Immunizations Under 20 Months Aged Out No longer eligible based on patient's age to complete this topic
--- OUTSIDE RECORDS SUMMARY | 2024-07-09 11:59 | XMS_ITS | Data Portability ---
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 The protraction is a little bit worse on the right and this may be due to relative shortening of her right clavicle due to her previous midshaft clavicle fracture. I have discussed with patient and her daughter that I cannot rule out a small rotator cuff tear which is very common in this age group. 30% of patients over the age of 70 have some degree of will hold the rotator cuff tendon. She does not however have significant rotator cuff weakness only mild weakness with abduction. I have explained to her and her daughter that her muscles that stabilized and moved the scapula are a very important part of movement of the arm at the shoulder joint the and weakness of these muscles and poor coordination of the muscles that move and stabilize the scapula lead to rotator cuff symptoms due to impingement. I recommended a course of physical therapy to. I explained the purpose of strengthening the muscles that stabilize the scapula and emphasized the importance of trying hard to optimize her posture by trying to stand tall to the extent possible and bring the shoulders into a more normal retracted position to the extent possible and practice this day-to-day. I have discussed with her that if she develops significant rotator cuff symptoms we can give her a cortisone injection to the subacromial space. Is not having a great deal discomfort today. I will see her back in 6 weeks to assess her progress with this. 30 minutes were spent total care this patient more than half the time spent in [id number] care Not available 08/15/2022 15:42:56 09/26/2022 09/26/2022 patient returns. She was last seen 6 weeks ago. Patient has shoulder symptoms. She has severe diffuse thoracic kyphosis and protracted shoulders and her right shoulder is additionally protracted due to have been a history of a midshaft clavicle fracture which healed some angulation overriding. The she went through physical therapy and she feels that she is standing a little bit taller. She has no pain at rest. She has some the mild soreness in the shoulder with overhead activities. She uses a Rollator walker chronically. On exam today she has mild weakness with thumbs down abduction strength testing normal external rotation and belly press strength. She has elevation 120 external rotation 60 internal rotation T12 without discomfort today. There is no redness swelling or warmth or tenderness about the shoulder. Impression: Patient has diminished range of motion of her right shoulder associated with pronounced scapular protraction and thoracic kyphosis. She is having minimal symptoms at this time mainly with overhead use the shoulder feels a bit weak. She does not feel she needs any additional physical therapy as she is learn to do the exercises properly and I have encouraged her to continue focusing on her posture the extent she can. I have discussed her the option of a cortisone shot if she ever develops a flare-up of symptoms like to try that. She is content to observe for now will continue doing her posture exercises for life. I will see her back as needed. Not available 09/26/2022 15:21:55 06/07/2024 06/07/2024 This note is dictated and transcribed by [employer]. Tennis Centre Manager variances may occur. Despite proofreading, typographical errors may occur. Occasional wrong-word or 'hjxve-n-tysy' substitutions may have occurred due to the inherent limitations of voice recording. Read the chart carefully and recognize, using context, where substitutions have occurred. [email or web address] Not available 06/07/2024 12:11:41 Plan of Treatment Reminders Order Date Submit Date Provider Last Modified By Organization Details Last Modified Time Details Appointments Establish ed Patient 15 2024 03:15P M Bacilio Evangelina, DPM Not available Not available Not available Lab None recorded. Referral None recorded. Procedures None recorded. Surgeries None recorded. Imaging XR, shoulder 2022 023 [facility], [address], [place], [address], 08/22/2022 13:34:52 Medication Orders None recorded. Patient TargetsNo targets recorded. Patient InstructionsNo instructions recorded. Reason for Referral None Reported. Results Created Date Observation Date Name Description Value Unit Range Abnormal Flag Note LastModifiedBy Organization Detail LastModifiedTime 08/16/1908/02/2022 XR, humer us No observ ation record ed. [email or web address] Not Available 2022 14:48:11 08/16/19 XR, shoul harsh No observ ation record ed. [facility] [address] [facility], [place], [address], 08/15/2022 15:39:54 Result Notes None recorded. Problems Name Problem SNOMED Code Status Onset Date Resolution Date Notes Provider Name and Address Organization Details Recorded Time Pain of right shoulder joint 9892908396343 9100 Active 2022 CHARLIE Capone, [employer] 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 Procedures Surgical History Date Name Laterality Status Provider Name and Address Organization Details Recorded Time 5 Callus Debridement 2-4 active Bacilio Hutchinson DPM [address], [address], [place], [address], [employer] 07/05/2024 16:32:24 5 Callus Debridement 2-4 completed Bacilio Hutchinson DPM [address], [place], [place], [address], [employer] ([employer]) 06/07/2024 12:11:36 Imaging Results Imaging Date Name Status LastModified by Organiz ation Details LastModified Time 08/02/2022 XR, humerus completed [email or web address] Information n ot available 08/15/2022 14:48:11 08/15/2022 XR, shoulder completed [facility] [address] [facility], [place], [address], 08/15/2022 15:39:54 Procedure Notes None recorded. Medical Equipment None Reported. Allergies No known drug allergies Medications Name Sig Start Date Stop Date Status Note LastModified by Organization Details LastModified Time cephalexin 250 mg capsule TAKE 1 CAPSULE BY MOUTH EVERY 12 HOURS 08/15 completed Not Available Not Available Not Available sulfamethox azole 800 mg-trimetho prim 160 mg tablet TAKE 1 TABLET BY MOUTH TWICE DAILY 07/05 completed Not Available Not Available Not Available acetaminoph en 500 mg tablet TAKE 1 TABLET BY MOUTH EVERY 6 HOURS NEEDED FOR PAIN OR FEVER 08/15 completed Not Available Not Available Not Available triamcinolo ne acetonide 0.1 % topical cream APPLY TOPICALLY TO THE AFFECTED AREA THREE TIMES DAILY 07/05 completed Not Available Not Available Not Available levothyroxi ne 88 mcg tablet TAKE 1 TABLET BY MOUTH EVERY MORNING active Not Available Not Available No t Available lovastatin 20 mg tablet TAKE 1 TABLET BY MOUTH EVERY EVENING active Not Available Not Available No t Available oxybutynin chloride 5 mg tablet TAKE 1 TABLET BY MOUTH TWICE DAILY 08/15 completed Not Available Not Available Not Available amoxicillin 500 mg-potassiu m clavulanate 125 mg tablet TAKE 1 TABLET BY MOUTH EVERY 12 HOURS 07/05 completed Not Available Not Available Not Available nitrofurant oin monohydrate /macrocryst als 100 mg capsule TAKE 1 CAPSULE BY MOUTH EVERY 12 HOURS WITH FOOD FOR 5 DAYS 08/15 completed Not Available Not Available Not Available Lidocaine Pain Relief 4 % topical patch APPLY 1 PATCH FOR 12 HOURS THEN 12 HOURS OFF 08/15 completed Not Available Not Available Not Available Vitals Date Recorded Body height Body mass index (BMI) Body weight Provider Name and Address Organization Details Last Updated DateTime 08/15/2022 149.86 cm 20.2 kg/m2 33911.24 g Rosemary Pollack Mitchell [facility] 08/15/2022 14:40:59 Date Recorded Body height Provider Name an d Address Organization Details Last Updated DateTime 09/26/2022 149.86 cm Rosemary Pollack Mitchell [facility] 09/26/2022 15:03:12 Date Recorded Body height Body mass index (BMI) Body weight Provider Name and Address Organization Details Last Updated DateTime 06/07/2024 157.48 cm 17.4 kg/m2 67505.28 g Lakshmi Antoine [facility] 06/07/2024 12:23:25 Date Recorded Body height Body mass index (BMI) Body weight Heart rate Respiratory rate Body temperature Oxygen saturation Oxygen saturation in Arterial blood by Pulse oximetry Systolic blood pressure Diastolic blood pressure Provider Name and Address Organization Details Last Updated DateTime 157.48 cm 17.4 kg/m2 91463.2 8 g 84 /min 16 /min 98 [degF] 96 % 96 % 130 mm[Hg] 76 mm[Hg] Shona Vides [facility] 15:08:55 Social History Question Answer Notes LastModified by Organizat ion Details LastModified Time Tobacco Smoking Status Never Smoker Lakshmi guidry [facility] 06/07/2024 12:24:25 What Is Your Level Of Alcohol Consumption? None Information not available 06/07/2024 What Is Your Level Of Caffeine Consumption? Occasional Information not available 06/07/2024 What Was The Date Of Your Most Recent Tobacco Screening? 06/07/2024 Information not available 06/07/2024 Do You Use Any Illicit Or Recreational Drugs? No Information not available 06/07/2024 Has Tobacco Cessation Counseling Been Provided? No Information not available 06/07/2024 Do You Or Have You Ever Used Any Other Forms Of Tobacco Or Nicotine? No Information not available 06/07/2024 Sex: Unknown Functional Status None recorded. Mental Status None recorded. Family History Relationship Description Onset Age of this Age Resolved Age Notes LastModified by Organization Details LastModified Time Father Family history of malignant neoplasm [email or web address] Not available 2022 14:34:48 Mother Hypertensive disorder Not available 2022 14:35:03 Mother Diabetes mellitus Not available 2024 12:23:57 Medical History Condition Response THYROID DISEASE Y ARTHRITIS Y OSTEOPOROSIS Y URINARY/BLADDER/KIDNEY PROBLEMS Y HIGH CHOLESTEROL / HYPERLIPIDEMIA Y Gynecological HistoryNo gynecological history recorded. Obstetrics History GPAL:G 0 P 0 0 0 0 Past Encounters Encounter ID Performer Location Encounter Start Date Encounter Closed Date Diagnosis/Indication Diagnosis SNOMED-CT Code Diagnosis ICD10 Code Diagnosis Note [id number] Papa Christopher MD [facility] [address] 08/15/2022 14:10:26 08/15/2022 15:56:44 Pain of right shoulder joint 8128958217 7868965 M25.511 [id number] Papa Christopher MD [facility] [address] [address] 09/26/2022 14:59:57 09/26/2022 15:25:05 Pain of right shoulder joint 4045380668 5821502 M25.050 [id number] Bacilio Hutchinson DPM [facility] [address] [place] [address] 06/07/2024 11:35:11 06/18/2024 13:02:41 Pain in both feet 4654138202 4543769 M79.671 M79.672 secondary to mild plantar flexed 1st ray due to arthritis bilateral and fat pad atrophy Foot callus 854256857 L8 4 worse to the right footbilate ral sub 1st metatarsal headdebrid ed without incidentre commend use of Amlactin and pumice stone daily Degenerati ve joint disease involving multiple joints 027028998 M15.9 bilateral feeteducat ed on conditionr ecommend supportive shoe gear and accommodat urbano insolesfol low-up 1 month Fat pad syndrome 6275471 03 E65 bilateral forefeetas above Health Concerns Section Related Observation LastModified by Organization Detai ls LastModified Time None Recorded Concern Status LastModified by Organization Details LastModified Time None Recorded Advance Directives Directive None Recorded Payers Encounter Date Sequence Insurance Name Policy Number Policy Cabral Covered Member ID Cabral Member ID Guarantor Name 08/15/2022 1 [place] Mely Hunterafelt [id number] Mely Hunterafelt 08/15/2022 2 [employer] - [employer] (MEDICARE SUPPLEMENT) Mely Hunterafelt [id number] Mely Hunterafelt 09/26/2022 1 [place] Mely Monsivais [place] [id number] Mely Hunterafelt 09/26/2022 2 [employer] - [employer] (MEDICARE SUPPLEMENT) Mely Hunterafelt [id number] Mely Hunterafelt 06/07/2024 1 [place] Mely Monsivais [place] [id number] Mely Shanafelt 06/07/2024 2 [employer] - [employer] LIFE (MEDICARE SUPPLEMENT) Mely Hunterafelt [id number] Mely Hunterafelt Notes Date Note Type Note Provider Name and Address Organization Details Recorded Time 08/15/2022 text/html Patient is an 82-year-old female who is referred by Dr. Fely Meyers for evaluation of her right arm pain. She has had symptoms for several years. She describes it as a moderate pain with certain movements. She does not have pain at night her rest. It bothers her in particular reaching up and doing her hair. She denies any numbness or tingling. Putting on a coat is very difficult for her to reach behind her back. She has had no therapy for this so far. Her past medical history is significant for kyphoplasty in the thoracic spine lower aspect . The x-rays she brought show evidence of methylmethacrylate kyphoplasty at 2 levels. History of right midshaft clavicle fracture many years ago which healed. Patient has history of osteoporosis and takes Prolia injection twice a year and also takes calcium plus vitamin-D daily. Papa Christopher MD [address], [facility] [address], [place], [address], [employer] ([employer]) 08/15/2022 15:43:11 06/07/2024 text/html . Patient is an 84-year-old female she presents the office with complaints of bilateral foot pain she states that she has calluses under the 1st metatarsal heads worse to the right foot she states she has been using salicylic acid to the area which has caused minor blistering. Patient denies any open wounds. Patient states she has pain when walking she does not utilize any supportive shoe gear and has only dressing style shoes. Patient denies any injury to the feet. Patient states she has pain when she is walking she utilizes a walker when walking she denies any pain when at rest. Patient denies any other complaints. Bacilio Hutchinson DPM [address], [facility] [address], [place], [address], [employer] ([employer]) 06/07/2024 12:31:55 OBGyn Episode No OBEpisode recorded.
== END 2024-07-09 11:55 | disposition home or self-care (01) ==
LOC: ANHIMG 11:57
PROVIDERS: PCP Nurse Practitioner; Visit Provider Internal Medicine Endocrinology, Diabetes & Metabolism
DX: M81.0 Age-related osteoporosis without current pathological fracture (principal); M85.88 Other specified disorders of bone density and structure, other site; M85.851 Other specified disorders of bone density and structure, right thigh
CPT/HCPCS: 77080

== ENCOUNTER 2024-07-19 11:37 | Outpatient (CLI) | payer MEDICARE, SELFPAY ==
[2024-07-19 13:13] LABS: Cholesterol 208 mg/dL (0-200); HDL Direct 109 mg/dL; Triglycerides 77 mg/dL (<150)
[2024-07-19 13:18] LABS: Anion Gap 7 mmol/L (4-12); Blood Urea Nitrogen 29 mg/dL (7-17); Calcium 9.5 mg/dL (8.4-10.2); Carbon Dioxide 32 mmol/L (22-30); Chloride 101 mmol/L (98-107); Estimated Glomerular Filt Rate > 60; Glucose 81 mg/dL (65-110); Potassium 4.3 mmol/L (3.4-5.0); Sodium 140 mmol/L (137-145)
[2024-07-19 13:24] LABS: LDL Cholesterol Direct 70 mg/dL
--- OUTSIDE RECORDS SUMMARY | 2024-07-19 13:34 | XMS_ITS | Clinical Summary ---
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
--- OUTSIDE RECORDS SUMMARY | 2024-07-19 13:35 | XMS_ITS | Data Portability ---
Author Organization [place] [facility], Main Office Address [address] [place] [address] Care Team Providers Care Fish House Worker Name Role Phone SALVADOR CHAD Primary Care Provider [phone] CHAD FRANCO Referring Provider [phone] Assessment Encounter Date Assessment Date Assessment LastModified [...] more than half the time spent in osqd-nx-avoh care Not available 08/15/2022 15:42:56 09/26/2022 09/26/2022 [...] This note is dictated and transcribed by [employer]. Pharmacy Retail Support Specialist variances may occur. Despite proofreading, typographical errors may occur. Occasional wrong-word or 'hglyt-h-sxna' substitutions may have occurred due to the inherent limitations of voice recording. Read the chart carefully and recognize, using context, where substitutions have occurred. Not available 06/07/2024 12:11:41 07/05/2024 07/05/2024 This note is dictated and transcribed by [employer]. Pharmacy Retail Support Specialist variances may occur. Despite proofreading, typographical errors may occur. Occasional wrong-word or 'keotp-q-jblb' substitutions may have occurred due to the inherent limitations of voice recording. Read the chart carefully and recognize, using context, where substitutions have occurred. Not available 07/12/2024 09:34:06 Plan of Treatment Reminders Order Date Submit Date Provider Last Modified By Organization Details Last Modified Time Details Appointments Establish ed Patient 15 2024 03:15P M Bacilio Hutchinson DPM Not available Not available Not available Lab None recorded. Referral None recorded. Procedures None recorded. Surgeries None recorded. Imaging XR, shoulder 2022 023 [facility], [address] [facility], [place], [address], 08/22/2022 13:34:52 Medication Orders None recorded. Patient TargetsNo targets recorded. Patient InstructionsNo instructions recorded. Reason for Referral None Reported. Results Created Date Observation Date Name Description Value Unit Range Abnormal Flag Note LastModifiedBy Organization Detail LastModifiedTime 08/16/1908/02/2022 XR, humer No observ ation record ed. [email or web address] Not Available 2022 14:48:11 08/16/19 XR, shoul harsh No observ ation record ed. [facility] [address] [facility], [place], [address], 08/15/2022 15:39:54 Result Notes None recorded. 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 Procedures Surgical History Date Name Laterality Status Provider Name and Address Organization Details Recorded Time 5 Nail Debridement completed Bacilio Hutchinson DPM [address], [place], [address], [employer] 07/12/2024 09:33:58 5 Callus Debridement 2-4 completed Bacilio Hutchinson DPM [address], [place], [address], [employer] 07/05/2024 16:32:24 5 Callus Debridement 2-4 completed Bacilio Hutchinson DPM [address], [place], [address], [employer] 06/07/2024 12:11:36 Imaging Results Imaging Date Name Status LastModified by Organiz ation Details LastModified Time 08/02/2022 XR, humerus completed [email or web address] Information n ot available 08/15/2022 14:48:11 08/15/2022 XR, shoulder completed [facility] [address], [place], [address], 08/15/2022 15:39:54 Procedure Notes None recorded. Medical [...] Updated DateTime 08/15/2022 149.86 cm 20.2 kg/m2 63591.24 g CHARLIE Capone Done[facility] 08/15/2022 14:40:59 Date Recorded Body height Provider Name an d Address Organization Details Last Updated DateTime 09/26/2022 149.86 cm CHARLIE Capone [email or web address] 09/26/2022 15:03:12 Date Recorded Body height Body mass index (BMI) Body weight Provider Name and Address Organization Details Last Updated DateTime 06/07/2024 157.48 cm 17.4 kg/m2 10650.28 g Lakshmi Antoine [employer] 06/07/2024 12:23:25 Date Recorded Body height Body mass index (BMI) Body weight Heart rate Respiratory rate Body temperature Oxygen saturation Oxygen saturation in Arterial blood by Pulse oximetry Systolic blood pressure Diastolic blood pressure Provider Name and Address Organization Details Last Updated DateTime 157.48 cm 17.4 kg/m2 17084.2 8 g 84 /min 16 /min 98 [degF] 96 % 96 % 130 mm[Hg] 76 mm[Hg] Shona Vides [employer] [facility] 15:08:55 Social History Question Answer Notes LastModified by Organizat ion Details LastModified Time Tobacco Smoking Status Never Smoker Lakshmi Antoine [facility] [employer] [facility] 06/07/2024 12:24:25 What Is Your Level Of [...] Time Father Family history of malignant neoplasm [email or web address] Not available 2022 14:34:48 Mother Hypertensive disorder [email or web address] Not available 2022 14:35:03 Mother Diabetes mellitus Not available 2024 12:23:57 Medical History Condition Response ARTHRITIS Y HIGH CHOLESTEROL / HYPERLIPIDEMIA Y THYROID DISEASE Y OSTEOPOROSIS Y URINARY/BLADDER/KIDNEY PROBLEMS Y Gynecological HistoryNo gynecological history recorded. Obstetrics History GPAL:G 0 P 0 0 0 0 Past Encounters Encounter ID Performer Location Encounter Start Date Encounter Closed Date Diagnosis/Indication Diagnosis SNOMED-CT Code Diagnosis ICD10 Code Diagnosis Note [id number] Papa Christopher MD [address] [address] 08/15/2022 14:10:26 08/15/2022 15:56:44 Pain of right shoulder joint 6728894920 2362040 M25.511 [id number] Papa Christopher MD [address] [address] 09/26/2022 14:59:57 09/26/2022 15:25:05 Pain of right shoulder joint 4932142424 7020417 M25.273 [id number] Bacilio Hutchinson DPM [facility] [place] [address] [place] [address] 06/07/2024 11:35:11 06/18/2024 13:02:41 Pain in both feet 4508923852 5422725 M79.671 M79.672 secondary to mild plantar flexed 1st ray due to arthritis bilateral and fat pad atrophy Foot callus 795250123 L8 4 worse to the right footbilate ral sub 1st metatarsal headdebrid ed without incidentre commend use of Amlactin and pumice stone daily Degenerati ve joint disease involving multiple joints 370433933 M15.9 bilateral feeteducat ed on conditionr ecommend supportive shoe gear and accommodat urbano insolesfol low-up 1 month Fat pad syndrome 7291266 03 E65 bilateral forefeetas above [id number] Bacilio Hutchinson DPM [facility] [place] [address] [place] [address] 07/05/2024 14:57:57 07/12/2024 09:34:37 Pain in both feet 3748995951 5574243 M79.671 M79.672 secondary to mild plantar flexed 1st ray due to arthritis bilateral and fat pad atrophy Foot callus 235534114 L8 4 worse to the right footbilate ral sub 1st metatarsal headdebrid ed without incidentre commend use of Amlactin and pumice stone daily Dystrophia unguium 49736 009 L60.3 Nails 1 through 10 were debrided with sharp mechanical debridemen t without incident. Nails were debrided and greater than 50% length and thickness where needed. Health Concerns Section Related Observation LastModified by Organization Detai ls LastModified Time None Recorded Concern Status LastModified by Organization Details LastModified Time None Recorded Advance Directives Directive None Recorded Payers Encounter Date Sequence Insurance Name Policy Number Policy Cabral Covered Member ID Cabral Member ID Guarantor Name 08/15/2022 1 [place] Mely Monsivais Shanafelt [id number] Mely Shanafelt 08/15/2022 2 [employer] (MEDICARE SUPPLEMENT) Mely Shanafelt [id number] Mely Shanafelt 09/26/2022 1 [place] Mely Monsivais Shanafelt [id number] Mely Shanafelt 09/26/2022 2 [employer] (MEDICARE SUPPLEMENT) Mely Shanafelt [id number] Mely Shanafelt 06/07/2024 1 [place] Mely Monsivais Shanafelt [id number] Mely Shanafelt 06/07/2024 2 [employer] (MEDICARE SUPPLEMENT) Mely Shanafelt [id number] Mely Shanafelt 07/05/2024 1 [place] Mely Monsivais Shanafelt [id number] Mely Shanafelt 07/05/2024 2 [employer] (MEDICARE SUPPLEMENT) Mely Shanafelt [id number] Mely Shanafelt Notes Date Note Type Note Provider Name and Address Organization Details Recorded Time 08/15/2022 text/html Patient is an 82-year-old female who is referred by Dr. Fely Franco for evaluation of her right arm pain. [...] vitamin-D daily. Papa Christopher MD [address], [place], [address], [employer] 08/15/2022 15:43:11 06/07/2024 text/html . Patient is [...] complaints. Bacilio Hutchinson DPM [address], [place], [address], [employer] 06/07/2024 12:31:55 07/05/2024 text/html . Patient is an 84-year-old female she returns the office for follow-up on bilateral foot pain. Patient has bilateral calluses which she states continued to cause her discomfort. Patient has a lack of fat to the bottom of the feet with which she creates higher pressures and callus formation. Patient has been noncompliant with supportive shoe gear. Her daughter presents with her which she states she bought her new shoes but she is not wearing them all the time and goes barefoot. Patient utilizes rolling walker. Patient denies any open wounds to the feet. Patient states when she is at rest it is not problematic. Bacilio Hutchinson DPM [address], [place], [address], [employer] 07/12/2024 09:34:37 OBGyn Episode No OBEpisode recorded.
[2024-07-19 13:36] LABS: Free T4 Free Thyroxine 1.18 ng/dL (0.78-2.19); Vitamin D 25 Hydroxy 45.6 ng/mL
[2024-07-19 13:43] LABS: Thyroid Stimulating Hormone 0.791 uIU/mL (0.465-4.680)
== END 2024-07-19 11:38 | disposition home or self-care (01) ==
LOC: ANHLAB 11:39
PROVIDERS: PCP Nurse Practitioner; Visit Provider Nurse Practitioner Family
DX: E78.5 Hyperlipidemia, unspecified (principal); E03.9 Hypothyroidism, unspecified; E55.9 Vitamin D deficiency, unspecified; M81.0 Age-related osteoporosis without current pathological fracture; F41.9 Anxiety disorder, unspecified
CPT/HCPCS: 36415; 80048; 80061; 82306; 82607; 84439; 84443

== ENCOUNTER 2024-09-30 14:44 | Outpatient (CLI) | payer MEDICARE, SELFPAY ==
--- OUTSIDE RECORDS SUMMARY | 2024-09-30 14:48 | XMS_ITS | Data Portability ---
Author Organization [place] [facility], Main Office Address [address] [place] [address] Care Team Providers Care Master In Chancery Name Role Phone CHAD FRANCO Primary Care Provider CHAD FRANCO Referring Provider [phone] Assessment Encounter Date Assessment Date Assessment LastModified by Organization Details LastModified Time 09/26/2022 09/26/2022 patient returns. She was last [...] This note is dictated and transcribed by [employer]. Home Health Occupational Therapist variances may occur. Despite proofreading, typographical errors may occur. Occasional wrong-word or 'ezkvd-z-uzlk' substitutions may have occurred due to the inherent limitations of voice recording. Read the chart carefully and recognize, using context, where substitutions have occurred. Not available 06/07/2024 12:11:41 07/05/2024 07/05/2024 This note is dictated and transcribed by [employer]. Home Health Occupational Therapist variances may occur. Despite proofreading, typographical errors may occur. Occasional wrong-word or 'zerwo-s-nbgv' substitutions may have occurred due to the inherent limitations of voice recording. Read the chart carefully and recognize, using context, where substitutions have occurred. Not available 07/12/2024 09:34:06 07/22/2024 07/22/2024 This note is dictated and transcribed by [employer]. Home Health Occupational Therapist variances may occur. Despite proofreading, typographical errors may occur. Occasional wrong-word or 'cjlzx-k-sxyj' substitutions may have occurred due to the inherent limitations of voice recording. Read the chart carefully and recognize, using context, where substitutions have occurred. [email or web address] Not available 07/22/2024 17:32:27 Plan of Treatment Reminders Order Date Submit Date Provider Last Modified By Organization Details Last Modified Time Details Appointments Establish ed Patient 15 2024 02:00P M Bacilio Hutchinson DPM Not available Not available Not available Establish ed Patient 15 2024 03:00P M Bacilio Hutchinson DPM Not available Not available Not available Lab None recorded. Referral None recorded. Procedures None recorded. Surgeries None recorded. Imaging None recorded. Medication Orders None recorded. Patient TargetsNo targets recorded. Patient InstructionsNo instructions recorded. Reason for Referral None Reported. Problems Name Problem SNOMED Code Status Onset Date Resolution Date Notes Provider Name and Address Organization Details Recorded Time Pain of right shoulder joint 5666638902771 9100 Active 2022 CHARLIE Capone, [place] [facility] 3 14:36:01 Foot callus 904456197 Active 2024 Bacilio Hutchinson DPM [address], [place], [address], [employer] 5 12:11:56 Generalized osteoarthri tis 903064594 Active 2024 Bacilio Hutchinson DPM [address], [place], [address], [employer] 5 12:12:06 Pain in both feet 7288641058744 9102 Active 2024 Bacilio Hutchinson DPM [address], [place], [address], [employer] 5 12:12:43 Fat pad syndrome 418111552 Active 2024 Bacilio Hutchinson DPM [address], [place], [address], [employer] 5 12:13:15 Dystrophia unguium 24884932 Active 2024 Bacilio Hutchinson DPM [address], [place], [address], [employer] 5 09:34:12 Problem Notes None recorded. Procedures Surgical History Date Name Laterality Status Provider Name and Address Organization Details Recorded Time 5 Nail Debridement completed Bacilio Hutchinson DPM [address], [place], [address], [employer] 07/22/2024 17:32:20 5 Callus Debridement 2-4 completed Bacilio Hutchinson DPM [address], [place], [address], [employer] 07/22/2024 17:32:17 5 Nail Debridement completed Bacilio Hutchinson DPM [address], [place], [address], [employer] 07/12/2024 09:33:58 5 Callus Debridement 2-4 completed Bacilio Hutchinson DPM [address], [place], [address], [facility] [employer] [facility] [employer] [facility] 07/05/2024 16:32:24 5 Callus Debridement 2-4 completed Bacilio Hutchinson DPM [address], [place], [address], [employer] [facility] [employer] [facility] 06/07/2024 12:11:36 Imaging Results None recorded. Procedure Notes None recorded. Medical Equipment None [...] Available Not Available Not Available levothyroxi ne 75 mcg tablet TAKE 1 TABLET BY MOUTH EVERY MORNING active Not Available Not Available No t Available levothyroxi ne 88 mcg tablet TAKE [...] Not Available Vitals Date Recorded Body height Provider Name an d Address Organization Details Last Updated DateTime 09/26/2022 149.86 cm CHARLIE Capone [facility] [employer] [facility] 09/26/2022 15:03:12 Date Recorded Body height Body mass index (BMI) Body weight Provider Name and Address Organization Details Last Updated DateTime 06/07/2024 157.48 cm 17.4 kg/m2 99502.28 g Lakshmi Antoine [facility] [employer] [facility] 06/07/2024 12:23:25 Date Recorded Body height Body mass index (BMI) Body weight Heart rate Respiratory rate Body temperature Oxygen saturation Oxygen saturation in Arterial blood by Pulse oximetry Systolic blood pressure Diastolic blood pressure Provider Name and Address Organization Details Last Updated DateTime 157.48 cm 17.4 kg/m2 92117.2 8 g 84 /min 16 /min 98 [degF] 96 % 96 % 130 mm[Hg] 76 mm[Hg] Shona Houston [facility] [employer] [facility] 15:08:55 Date Recorded Body height Body mass index (BMI) Body weight Heart rate Respiratory rate Oxygen saturation Oxygen saturation in Arterial blood by Pulse oximetry Systolic blood pressure Diastolic blood pressure Provider Name and Address Organization Details Last Updated DateTime 157.48 cm 17.4 kg/m2 13837.2 8 g 77 /min 14 /min 97 % 97 % 131 mm[Hg] 82 mm[Hg] Lakshmi Antoine [facility] [employer] [facility] 16:20:32 Date Recorded Body height Body mass index (BMI) Body weight Provider Name and Address Organization Details Last Updated DateTime 09/30/2024 157.48 cm 17.4 kg/m2 47068.28 g Lakshmi Antoine [facility] [employer] [facility] 09/30/2024 15:13:07 Social History Question Answer Notes LastModified by Organizat ion Details LastModified Time Tobacco Smoking Status Never Smoker Lakshmi guidry [facility] [employer] [facility] 06/07/2024 12:24:25 What Is Your Level Of [...] Time Father Family history of malignant neoplasm [email or web address] Not available 2022 14:34:48 Mother Hypertensive disorder [email or web address] Not available 2022 14:35:03 Mother Diabetes mellitus [...] SNOMED-CT Code Diagnosis ICD10 Code Diagnosis Note [id number] Papa Christopher MD [facility] [address] 08/15/2022 14:10:26 08/15/2022 15:56:44 Pain of right shoulder joint 2325933125 6713726 M25.511 [id number] Papa Christopher MD [address] [address] 09/26/2022 14:59:57 09/26/2022 15:25:05 Pain of right shoulder joint 3315810825 1352493 M25.970 [id number] Bacilio Hutchinson DPM [facility] Podiatry [place] [address] [place] [address] 06/07/2024 11:35:11 06/18/2024 13:02:41 Pain in both feet 3248935783 6234651 M79.671 M79.672 secondary to mild plantar flexed 1st ray due to arthritis bilateral and fat pad atrophy Foot callus 661788631 L8 4 worse to the right footbilate ral sub 1st metatarsal headdebrid ed without incidentre commend use of Amlactin and pumice stone daily Generalize d osteoarthritis 702081698 M15.9 bilateral feeteducat ed on conditionr ecommend supportive shoe gear and accommodat urbano insolesfol low-up 1 month Fat pad syndrome 8093944 03 E65 bilateral forefeetas above [id number] Bacilio Hutchinson DPM [facility] Podiatry [place] [address] [place] [address] 07/05/2024 14:57:57 07/23/2024 13:35:16 Pain in both feet 6046709848 7719746 M79.671 M79.672 secondary to mild plantar flexed 1st ray due to arthritis bilateral and fat pad atrophy Foot callus 828861130 L8 4 worse to the right footbilate ral sub 1st metatarsal headdebrid ed without incidentre commend use of Amlactin and pumice stone daily Dystrophia unguium 63817 009 L60.3 Nails 1 through 10 were debrided with sharp mechanical debridemen t without incident. Nails were debrided and greater than 50% length and thickness where needed. [id number] Bacilio Hutchinson DPM [facility] Podiatry [place] [address] [place] [address] 07/22/2024 16:12:21 07/23/2024 14:16:31 Foot callus 279290665 L84 worse to the right footbilate ral sub 1st metatarsal headdebrid ed without incidentre commend use of Amlactin and pumice stone daily Pain in both feet 733490 9700 6591783 M79.671 M79.672 secondary to mild plantar flexed 1st ray due to arthritis bilateral and fat pad atrophy Dystrophia unguium 41014 009 L60.3 Nails 1 through 10 were [...] Member ID Cabral Member ID Guarantor Name 09/26/2022 1 [place] Mely Monsivais Shanafelt [id number] Mely Shanafelt 09/26/2022 2 [employer] (MEDICARE SUPPLEMENT) Mley Hunterafelt [id number] Mely [employer] 06/07/2024 1 [place] Mely Monsivais Shanafelt [id number] Mely [employer] 06/07/2024 2 [employer] (MEDICARE SUPPLEMENT) Mely Hunterafelt [id number] Mely [employer]afelt 07/05/2024 1 [place] Mely Monsivais Shanafelt [id number] Mely [employer]elt 07/05/2024 2 [employer] (MEDICARE SUPPLEMENT) Mely Hunterafelt [id number] Mely [employer] 07/22/2024 1 [place] Mely Hunterafelt [id number] Mely [employer] 07/22/2024 2 [employer] (MEDICARE SUPPLEMENT) Mely Hunterafelt [id number] Mely Hunterafelt Notes Date Note Type Note Provider Name and Address Organization Details Recorded Time 06/07/2024 text/html . Patient is an 84-year-old [...] rest. Patient denies any other complaints. Bacilio Hutchinson, SANDRA [address] [address], [place], [address], [facility] 06/07/2024 12:31:55 07/05/2024 text/html . Patient is [...] not problematic. Bacilio Hutchinson DPM [address], [facility], [place], [address], [employer] 07/12/2024 09:34:37 07/22/2024 text/html . Patient is 84-year-old female she returns to office for follow-up on bilateral foot pain secondary to calluses. Patient obtained multi density accommodative insoles she states that she continues have pain we will perform cut outs under the 1st ray area to produce more offloading. I also recommended the patient obtain padding for the metatarsals to add to the shoe gear such as metatarsal bar. patient also states her nails are long would like to have them cut. Patient states she is unable to perform this. Bacilio Hutchinson DPM [address], [facility], [place], [address], [employer] 07/22/2024 17:32:44 OBGyn Episode No OBEpisode recorded.
--- OUTSIDE RECORDS SUMMARY | 2024-09-30 14:48 | XMS_ITS | Clinical Summary ---
Author Organization [facility] Address [address] [place] [address] Care Team Providers Care Cigar Bander Hand Name Role Phone Unavailable Primary Care Provider [...] Td Vaccines ( 1 - Tdap) 1957 Pneumococcal Vaccine: 50+ Ye ars (1 of 1 - PCV) 1988 Zoster Vaccines (1 of 2) 1988 RSV Immunization or 60+ Years (1 - 1-dose 75+ series) 2013 COVID-19 Vaccine (2023-2 5 season) 2024 Meningococcal B Vaccine Aged Out No l onger eligible based on patient's age to complete this topic Meningococcal Vaccine Aged Out No krista alonso eligible based on patient's age to complete this topic RSV Immunizations Under 20 Months Aged Out No longer eligible based on patient's age to complete this topic
[2024-09-30 15:46] LABS: Free T4 Free Thyroxine 1.49 ng/dL (0.78-2.19)
== END 2024-09-30 14:45 | disposition home or self-care (01) ==
PROVIDERS: PCP Nurse Practitioner; Visit Provider Internal Medicine Endocrinology, Diabetes & Metabolism
DX: E03.9 Hypothyroidism, unspecified (principal)
CPT/HCPCS: 36415; 84439; 84443

== ENCOUNTER 2024-10-08 17:04 | Inpatient (IN) | payer MEDICARE, SELFPAY ==
[2024-10-08] VITALS (7 sets, daily range): BP systolic 171–191; BP diastolic 87–99; PULSE 73–82; RESP 13–18; TEMP 36.6; O2SAT 95–99; BMI 17.6
--- NOTE | ~2024-10-08 | CT_ITS ---
CT pelvis wo con Ordering provider: Daiana Champion PA-C History: . r/o fx . Comparison: None. Technique: CT pelvis without oral and IV contrast. . Automated exposure control and iterative recons truction technique were employed. The dose-length product was 233.69 mGy-cm. Findings: BONES: Healing fracture in the left sacral alar is noted. Healing fracture in the right greater troch anter is noted. Acute fracture in the left superior pubic ramus is seen. Healed fractures in the symp hysis pubis and inferior pubic rami. Old compression fracture is seen in L5.. Age appropriate degener ative changes of the visualized lower lumbar spine. Left sacroiliitis. SUPERFICIAL SOFT TISSUES: Normal. PELVIC ORGANS: . Haro's catheter is seen in the bladder. VISUALIZED BOWEL AND MESENTERY: Normal. No free air or free fluid. No lymphadenopathy. RETROPERITONEUM: Mild atheromatous disease. IMPRESSION: Healing fracture in the right femoral greater trochanter and in the left sacral alar. Fracture in the left superior pubic ramus seen on the coronal images Reviewed, dictated and finalized at location A.
--- NOTE | ~2024-10-08 | XR_ITS ---
XR hip LT 2V w AP pelvis Ordering provider: Ramon Patterson History: . fall . Comparison: February 20, 2023. FINDINGS: BONES: No definite acute fracture or dislocation. Lucency is seen in the right intertrochanteric area which may be acute or healing fracture. CT evaluation advised. Old healed fractures in the inferior pubic rami is noted. Lucency in the left superior pubic ramus is also noted. Healing fracture in the left pubic bone. HIP JOINT SPACES: Bilateral severe osteoarthritic changes of the hips is noted. SACROILIAC JOINT SPACES/LUMBAR SPINE: The sacroiliac joint spaces shows bilateral sacroiliacs.. Mild degenerative changes of the visualized lower lumbar spine. PUBIC SYMPHYSIS: Normal. SOFT TISSUES: Normal. IMPRESSION: No definite acute osseous abnormality pelvis and left hip. Lucency in the right intertrochanteric are a which may indicate a fracture. Lucency seen in the left superior pubic ramus. CT evaluation is advi sed. Reviewed, dictated and finalized at location A. IMPRESSION: No definite acute osseous abnormality pelvis and left hip. Lucency in the right intertrochanteric area which may indicate a fracture. Lucency seen in the left superior pubic ramus. CT evaluation is advised.
--- OUTSIDE RECORDS SUMMARY | 2024-10-08 17:06 | XMS_ITS | Clinical Summary ---
Author Organization [facility] Address [address] [place] [address] Care Team Providers Care Pecan Picker Name Role Phone Unavailable Primary Care Provider [...]
--- OUTSIDE RECORDS SUMMARY | 2024-10-08 17:06 | XMS_ITS | Data Portability ---
Author Organization [place] [facility] [employer], Main Office Address [address] [place] [address] Care Team Providers Care Finisher Card Tender Name Role Phone CHAD FRANCO Primary Care Provider [phone] CHAD FRANCO Referring Provider [phone] Assessment Encounter Date Assessment Date Assessment LastModified [...] This note is dictated and transcribed by [employer]. Dinkey Operator Slag variances may occur. Despite proofreading, typographical errors may occur. Occasional wrong-word or 'flloa-r-nvby' substitutions may have occurred due to the inherent limitations of voice recording. Read the chart carefully and recognize, using context, where substitutions have occurred. Not available 06/07/2024 12:11:41 07/05/2024 07/05/2024 This note is dictated and transcribed by [employer]. Dinkey Operator Slag variances may occur. Despite proofreading, typographical errors may occur. Occasional wrong-word or 'xnxli-w-qgpi' substitutions may have occurred due to the inherent limitations of voice recording. Read the chart carefully and recognize, using context, where substitutions have occurred. Not available 07/12/2024 09:34:06 07/22/2024 07/22/2024 This note is dictated and transcribed by [employer]. Dinkey Operator Slag variances may occur. Despite proofreading, typographical errors may occur. Occasional wrong-word or 'szdyj-a-leid' substitutions may have occurred due to the inherent limitations of voice recording. Read the chart carefully and recognize, using context, where substitutions have occurred. Not available 07/22/2024 17:32:27 Plan of Treatment Reminders Order Date Submit Date Provider Last Modified By Organization Details Last Modified Time Details Appointments Establish ed Patient 15 2024 03:00P M [...] Recorded Time Pain of right shoulder joint 3716957219418 9100 Active 2022 CHARLIE Capone, [facility] 3 14:36:01 Foot callus 982792184 Active 2024 Bacilio Hutchinson DPM [address] [facility], [address], [place], [address] , [employer] 5 12:11:56 Generalized osteoarthri tis 339846728 Active 2024 Bacilio Hutchinson DPM [address], [address], [place], [address], [employer] 5 12:12:06 Pain in both feet 1263183764071 9102 Active 2024 Bacilio Hutchinson DPM [address], [address], [place], [address], [employer] 5 12:12:43 Fat pad syndrome 631570441 Active 2024 Bacilio Hutchinson DPM [address], [address], [place], [address], [employer] 5 12:13:15 Dystrophia unguium 60172498 Active 2024 Bacilio Hutchinson DPM [address], [address], [place], [address], [employer] 5 09:34:12 Problem Notes None recorded. Procedures Surgical History Date Name Laterality Status Provider Name and Address Organization Details Recorded Time 5 Nail Debridement completed Bacilio Hutchinson DPM [address], [address], [place], [address], [employer] 07/22/2024 17:32:20 5 Callus Debridement 2-4 completed Bacilio Hutchinson DPM [address], [address], [place], [address], [employer] 07/22/2024 17:32:17 5 Nail Debridement completed Bacilio Hutchinson DPM [address], [address], [place], [address], [employer] 07/12/2024 09:33:58 5 Callus Debridement 2-4 completed Bacilio Hutchinson DPM [address], [address], [place], [address], [place] [facility] 07/05/2024 16:32:24 5 Callus Debridement 2-4 completed Bacilio Hutchinson DPM [address] [facility], [facility] [address], [place], [address], [facility] 06/07/2024 12:11:36 Imaging Results None recorded. Procedure [...] Updated DateTime 09/26/2022 149.86 cm CHARLIE Capone [employer] [facility] [employer] 09/26/2022 15:03:12 Date Recorded Body height Body mass index (BMI) Body weight Provider Name and Address Organization Details Last Updated DateTime 06/07/2024 157.48 cm 17.4 kg/m2 55111.28 g Lakshmi Antoine [facility] 06/07/2024 12:23:25 Date Recorded Body height Body mass index (BMI) Body weight Heart rate Respiratory rate Body temperature Oxygen saturation Oxygen saturation in Arterial blood by Pulse oximetry Systolic blood pressure Diastolic blood pressure Provider Name and Address Organization Details Last Updated DateTime 157.48 cm 17.4 kg/m2 85294.2 8 g 84 /min 16 /min 98 [degF] 96 % 96 % 130 mm[Hg] 76 mm[Hg] Shona Vides [facility] 15:08:55 Date Recorded Body height Body mass index (BMI) Body weight Heart rate Respiratory rate Oxygen saturation Oxygen saturation in Arterial blood by Pulse oximetry Systolic blood pressure Diastolic blood pressure Provider Name and Address Organization Details Last Updated DateTime 157.48 cm 17.4 kg/m2 37489.2 8 g 77 /min 14 /min 97 % 97 % 131 mm[Hg] 82 mm[Hg] Lakshmi Antoine [facility] 16:20:32 Date Recorded Body height Body mass index (BMI) Body weight Provider Name and Address Organization Details Last Updated DateTime 09/30/2024 157.48 cm 17.4 kg/m2 31144.28 g Lakshmi Antoine [facility] 09/30/2024 15:13:07 Social History Question Answer Notes LastModified by [employer] Details LastModified Time Tobacco Smoking Status Never Smoker Lakshmi guidry [facility] 06/07/2024 12:24:25 What Is Your Level Of Caffeine Consumption? Occasional Information not available 06/07/2024 What Was The Date Of Your Most Recent Tobacco Screening? 06/07/2024 Information not available 06/07/2024 Has Tobacco Cessation Counseling Been Provided? No Information not available 06/07/2024 Sex: Unknown Functional Status Question Answer Note LastModified by [employer] Details LastModified Time Do you use any illicit or recreational drugs? No Information not available 06/07/2024 Do you or have you ever used any other forms of tobacco or nicotine? No Information not available 06/07/2024 What is your level of alcohol consumption? None Information not available 06/07/2024 Mental Status None recorded. Family History Relationship Description Onset Age of this Age Resolved Age Notes LastModified by Organization Details LastModified Time Father Family history of malignant neoplasm [email or web address] Not available 2022 14:34:48 Mother Hypertensive disorder [email or web address] Not available 2022 14:35:03 Mother Diabetes mellitus [...] SNOMED-CT Code Diagnosis ICD10 Code Diagnosis Note [id number] Papa Christopher MD [facility]_[address] [address] 08/15/2022 14:10:26 08/15/2022 15:56:44 Pain of right shoulder joint 2514494759 4034567 M25.511 [id number] Papa Christopher MD [facility]_[address] [address] 09/26/2022 14:59:57 09/26/2022 15:25:05 Pain of right shoulder joint 1194882732 7986418 M25.950 [id number] Bacilio Hutchinson DPM [facility] [place] [address] [place] [address] 06/07/2024 11:35:11 06/18/2024 13:02:41 Pain in both feet 4517998774 6371316 M79.671 M79.672 secondary to mild plantar flexed 1st ray due to arthritis bilateral and fat pad atrophy Foot callus 621520670 L8 4 worse to the right footbilate ral sub 1st metatarsal headdebrid ed without incidentre commend use of Amlactin and pumice stone daily Generalize d osteoarthritis 493716824 M15.9 bilateral feeteducat ed on conditionr ecommend supportive shoe gear and accommodat urbano insolesfol low-up 1 month Fat pad syndrome 3719140 03 E65 bilateral forefeetas above [id number] Bacilio Hutchinson DPM [facility] [place] [address] [place] [address] 07/05/2024 14:57:57 07/23/2024 13:35:16 Pain in both feet 0091375566 9986358 M79.671 M79.672 secondary to mild plantar flexed 1st ray due to arthritis bilateral and fat pad atrophy Foot callus 889343539 L8 4 worse to the right footbilate ral sub 1st metatarsal headdebrid ed without incidentre commend use of Amlactin and pumice stone daily Dystrophia unguium 74463 009 L60.3 Nails 1 through 10 were debrided with sharp mechanical debridemen t without incident. Nails were debrided and greater than 50% length and thickness where needed. [id number] Bacilio Hutchinson DPM [facility] [place] [address] [place] [address] 07/22/2024 16:12:21 07/23/2024 14:16:31 Foot callus 963068949 L84 worse to the right footbilate ral sub 1st metatarsal headdebrid ed without incidentre commend use of Amlactin and pumice stone daily Pain in both feet 432185 5692 2439308 M79.671 M79.672 secondary to mild plantar flexed 1st ray due to arthritis bilateral and fat pad atrophy Dystrophia unguium 71443 009 L60.3 Nails 1 through 10 were [...] Cabral Member ID Guarantor Name 09/26/2022 1 [place] Mely Wheatley [id number] Mely Hunterafelt 09/26/2022 2 [employer] (MEDICARE SUPPLEMENT) Mely Hunterafelt [id number] Mely Hunterafelt 06/07/2024 1 [place] Mely Hunterafelt [id number] Mely Hunterafelt 06/07/2024 2 [employer] (MEDICARE SUPPLEMENT) Mely Hunterafelt [id number] Mely Hunterafelt 07/05/2024 1 [place] Mely Monsivais Shanafelt [id number] Mely Hunterafelt 07/05/2024 2 [employer] (MEDICARE SUPPLEMENT) Mely Hunterafelt [id number] Mely Hunterafelt 07/22/2024 1 [place] Mely Hunterafelt [id number] Mely Hunterafelt 07/22/2024 2 [employer] (MEDICARE SUPPLEMENT) Mely Hunterafelt [id number] Mely Wheatley Notes Date Note Type Note Provider Name [...] any other complaints. Bacilio Hutchinson DPM [address] [facility], [facility] [address], [place], [address], [facility] [employer] 06/07/2024 12:31:55 07/05/2024 text/html . Patient is [...] problematic. Bacilio Hutchinson DPM [address], [facility] [address], [place], [address], [facility] 07/12/2024 09:34:37 07/22/2024 text/html . Patient is [...] this. Bacilio Hutchinson DPM [address], [facility] [address], [place], [address], [facility] 07/22/2024 17:32:44 OBGyn Episode No OBEpisode recorded.
--- NOTE | 2024-10-08 17:37 | ED.FALL ---
HPI - Fall General Chief Complaint: Fall <JORGE Moraes Last Filed: 10/08/24 23:34> Stated Complaint: fall <JORGE Moraes Last Filed: 10/08/24 23:34> Time Seen by Provider: 10/08/24 17:13 <JORGE Moraes Last Filed: 10/08/24 23:34> Source: patient <JORGE Moraes Last Filed: 10/08/24 23:34> Mode of arrival: EMS <JORGE Moraes Last Filed: 10/08/24 23:34> Limitations: no limitations <JORGE Moraes Last Filed: 10/08/24 23:34> History of Present Illness HPI Narrative: Patient is an 84-year-old female who presents the ED via EMS with report of a fall. Patient reports she was walking in her garage with her walker when she slipped on water and landed on her left side. She did not hit her head or lose consciousness. She complains of pain to her left groin. Was unable to get up off the ground, EMS was called. Denies numbness. Denies any other areas of pain. Denies dizziness or lightheadedness. She is not on any anticoagulation. <JORGE Moraes Last Filed: 10/08/24 23:34> Related Data Home Medications: Home Medications ?Medication ?Instructions ?Recorded ?Confirmed ?Last Taken ?Type multivitamin 1 tablet PO DAILY 04/26/20 10/08/24 10/07/24 History calcium carbonate (Calcium 500) 500 mg PO DAILY 01/16/22 10/08/24 10/07/24 History <JORGE Moraes Last Filed: 10/08/24 23:34> Allergies/Adverse Reactions: Allergies Allergy/AdvReac Type Severity Reaction Status Date / Time nitrofurantoin (From AdvReac Itching Verified 10/08/24 23:30 Macrobid) <JORGE Moraes Last Filed: 10/08/24 23:34> Review of Systems Review of Systems: All systems reviewed & are unremarkable except as noted in HPI. <Daiana Champion PA-C - Last Filed: 10/08/24 23:34> All systems reviewed & are unremarkable except as noted in HPI and below <Daiana Champion PA-C - Last Filed: 10/08/24 23:34> [facility] Past Medical History Medical History: Medical History Body mass index (BMI) less than 20 History of fractured pelvis (~02/2020) Thyroid disease Osteoporosis H/O: HTN (hypertension) Back pain Arthritis Osteoporosis Rotator cuff tear, right Rotator cuff strain Dermatitis Forgetfulness Generalized weakness Dyshidrotic dermatitis Acquired hypothyroidism Age-related osteoporosis with current pathological fracture IFG (impaired fasting glucose) <Daiana Champion PA-C - Last Filed: 10/08/24 23:34> Family History Family History: Family History Mother Diabetes mellitus Hypertension Father Pancreatic cancer Other Family history of congestive heart failure <Daiana Champion PA-C - Last Filed: 10/08/24 23:34> Social History Social History: Social History Smoking status: Never smoker Second hand tobacco smoke exposure: No Alcohol intake: never Substance use: never Substance use type: does not use Do You Feel Safe in your Home?: Yes Lack of Transportation: No Lack of Food: Never True Current Housing: I Have Housing Concerned About Future Housing: No Difficulty Paying Gas/Electric Bills: No Difficulty Paying for Meds: No Currently Unemployed: No Education: High School Diploma/GED Difficulty w/ Childcare or Family Care: No Living arrangements: alone Occupation/Education: retired 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 HEAD: Normocephalic, atraumatic. RESPIRATORY: Airway patent, respirations nonlabored. Clear to auscultation bilaterally, no rales, rhonchi, wheezing. CARDIOVASCULAR: Regular rate and rhythm without murmurs, rubs, or gallops. Pedal pulses intact. MUSCULOSKELETAL: No gross deformities. No shortening or external rotation noted of left lower extremity. Limited range of motion of left lower extremity due to pain. Unable to elicit tenderness in left hip joint/left groin region. Sensation intact throughout extremity. SKIN: Warm, dry, normal color. NEURO: A&O X3. Speech clear. No ataxic movements. PSYCHIATRIC: Appropriate mood and affect. Normal interaction. <Daiana Champion PA-C - Last Filed: 10/08/24 23:34> Course TRANSCRIPTION MANAGER/PA Physician Supervision This visit was performed by both a physician and an APC. I performed all aspects of the MDM as documented. Patient presents after mechanical fall on appears to have old hip fractures with new pubic rami fracture and difficulty ambulating and getting up. Orthopedics was consulted and hospitalist was spoken to regarding admission. Patient and family members comfortable with admission here to the hospital for further evaluation treatment and PT, OT and rehabilitation. Pain is controlled at this time she remains hemodynamically stable. <Alex Granados MD - Last Filed: 10/09/24 07:49> Vital Signs Vital signs: Vital Signs Temperature 36.6 C 10/08/24 17:15 Pulse Rate 76 10/08/24 17:15 Respiratory Rate 16 10/08/24 17:15 Blood Pressure 179/99 H 10/08/24 17:15 Pulse Oximetry 97 10/08/24 17:15 Oxygen Delivery Room Air 10/08/24 17:15 Temperature 36.9 C 10/09/24 04:24 Pulse Rate 78 10/09/24 04:24 Respiratory Rate 16 10/09/24 04:24 Blood Pressure 158/85 H 10/09/24 04:24 Pulse Oximetry 96 10/09/24 04:24 Oxygen Delivery Room Air 10/08/24 23:44 <Daiana Champion PA-C - Last Filed: 10/08/24 23:34> Vital Signs Temperature 36.6 C 10/08/24 17:15 Pulse Rate 76 10/08/24 17:15 Respiratory Rate 16 10/08/24 17:15 Blood Pressure 179/99 H 10/08/24 17:15 Pulse Oximetry 97 10/08/24 17:15 Oxygen Delivery Room Air 10/08/24 17:15 Temperature 36.9 C 10/09/24 04:24 Pulse Rate 78 10/09/24 04:24 Respiratory Rate 16 10/09/24 04:24 Blood Pressure 158/85 H 10/09/24 04:24 Pulse Oximetry 96 10/09/24 04:24 Oxygen Delivery Room Air 10/08/24 23:44 <Alex Granados MD - Last Filed: 10/09/24 07:49> MDM - Fall MDM Narrative Medical decision making narrative: Patient presented to ED from home s/p ground level mechanical fall. Complains of pain to left groin. Denies head injury or LOC. Vital signs stable. Patient in no acute distress. No significant deformity noted to left lower extremity. No shortening or external rotation. Neurovascularly intact. X-ray of left hip/pelvis was obtained and showing: IMPRESSION: No definite acute osseous abnormality pelvis and left hip. Lucency in the right intertrochanteric area which may indicate a fracture. Lucency seen in the left superior pubic ramus. CT evaluation is advised. CT pelvis was obtained. Does show healing right-sided hip and pelvic fractures with acute left-sided superior pubic rami fracture. Consistent with clinical picture. Patient unable to ambulate or even lift her leg off of the bed. Will be admitted for further evaluation, PT/OT/rehab. She denies any other injuries from the fall. Discussed case with Noemi MÁRQUEZ hospitalist, accepted patient for admission. Care coordination consulted. Discussed case with Dr. Araya, orthopedics, will consult. Patient and family in agreement with plan and need for admission. <Daiana Champion PA-C - Last Filed: 10/08/24 23:34> Medical Records Attestation: I reviewed the patient's medical records. <Daiana Champion PA-C - Last Filed: 10/08/24 23:34> Lab Data Result diagrams: 10/08/24 22:47 10/08/24 22:47 <JORGE Moraes Last Filed: 10/08/24 23:34> Imaging Data Attestation: I personally reviewed and interpreted this imaging study as follows: <JORGE Moraes Last Filed: 10/08/24 23:34> Radiologist's impression: ITS Impressions Hip/Pelvis X-Ray 10/08/24 17:52 IMPRESSION: No definite acute osseous abnormality pelvis and left hip. Lucency in the right intertrochanteric area which may indicate a fracture. Lucency seen in the left superior pubic ramus. CT evaluation is advised. Pelvis CT 10/08/24 20:28 IMPRESSION: Healing fracture in the right femoral greater trochanter and in the left sacral alar. Fracture in the left superior pubic ramus seen on the coronal images <JORGE Moraes Last Filed: 10/08/24 23:34> Discharge Plan Discharge Clinical Impression: Fall from ground level, Unable to ambulate Fracture of superior ramus of left pubis Qualifiers: Encounter type: initial encounter Fracture type: closed Qualified Code(s): S32.512A - Fracture of superior rim of left pubis, initial encounter for closed fracture <JORGE Moraes Last Filed: 10/08/24 23:34> Patient Disposition: Still a Patient <JORGE Moraes Last Filed: 10/08/24 23:34> Condition: Stable <JORGE Moraes Last Filed: 10/08/24 23:34>
--- OUTSIDE RECORDS SUMMARY | 2024-10-08 19:22 | XMS_ITS | Clinical Summary ---
Author Organization [facility] Address [address] [place] [address] Care Team Providers Care Corrugator Machine Operator Name Role Phone Unavailable Primary Care Provider [...]
[2024-10-08 22:57] LABS: Basophils Percent Auto 0.3 % (0.2-1.2); Eosinophils Percent Auto 0.2 % (0-4.4); Hematocrit 39.9 % (37.0-47.0); Hemoglobin 12.5 g/dL (12.0-15.0); Immature Granulocyte Absolute 0.04 K/mm3 (0.00-0.031); Immature Granulocyte Percent A 0.3 % (0-0.5); Lymphocytes Absolute Auto 1.22 K/mm3 (0.9-3.2); Lymphocytes Percent Auto 10.6 % (18.3-44.2); Mean Corpuscular HGB Conc 31.3 g/dl (32-36); Mean Corpuscular Volume 92.6 fl (80-100); Mean Platelet Volume 9.8 fl (7.4-10.4); Monocytes Absolute Auto 0.6 K/mm3 (0.1-0.6); Monocytes Percent Auto 5.6 % (2.6-8.5); Neutrophils Absolute Auto 9.6 K/mm3 (1.3-6.7); Platelet Count Result 210 k/mm3 (150-375); Red Blood Count 4.31 M/mm3 (4.2-5.4); Red Cell Distribution Width 13.6 % (11.5-14.5); White Blood Count 11.5 K/mm3 (4.5-10.0)
[2024-10-08 23:06] LABS: Alanine Aminotransferase 28 U/L (6-35); Albumin Level 4.1 g/dL (3.5-5.1); Alkaline Phosphatase 82 U/L (38-126); Anion Gap 8 mmol/L (4-12); Aspartate Amino Transferase 39 U/L (14-36); Bilirubin,Total 0.5 mg/dL (0.2-1.3); Blood Urea Nitrogen 22 mg/dL (7-17); Calcium 8.7 mg/dL (8.4-10.2); Carbon Dioxide 26 mmol/L (22-30); Chloride 105 mmol/L (98-107); Estimated CRCL calculation 37 ml/min; Estimated Glomerular Filt Rate > 60; Glucose 100 mg/dL (65-110); Potassium 3.8 mmol/L (3.4-5.0); Sodium 139 mmol/L (137-145)
[2024-10-08 23:09] LABS: Partial Thromboplastin Time 29.9 Seconds (22.3-36.8); Prothrombin Time 13.6 Seconds (11.1-14.7)
--- NOTE | 2024-10-08 23:13 | ADMGEN ---
This patient, Mely Wheatley, was admitted to [facility] Surg Room 301-01. Patient/family oriented to hospital policies and general routines including ID bracelet, bed and alarms, visiting hours, pain management, procedures, bathroom and other care routines, personal items, smoking policy, room service/diet, and visiting hours. Information on how to activate the Rapid Response Team has been discussed. Patient/Family are encouraged to report perceived risks to care and to ask questions if they do not understand what they are told or what they should do.
[2024-10-08] MEDS: ACETAMINOPHEN 325 MG TABLET 650 MG PO (23:33)
[2024-10-09 00:30] VITALS: BP 164/84; PULSE 78; RESP 16; TEMP 36.9; O2SAT 95; BMI 17.6
[2024-10-09] MEDS: MELATONIN 5 MG TABLET PO (03:27)
[2024-10-09 04:24] VITALS: BP 158/85; PULSE 78; RESP 16; TEMP 36.9; O2SAT 96
--- NOTE | 2024-10-09 07:27 | P.PNIM_ITS ---
Progress Note: A&P Assessment and Plan (1) Falls: Code(s): W19.XXXA - Unspecified fall, initial encounter Status: Acute Assessment and Plan: S/p mechanical ground level fall Denies hitting head and LOC. Not on anticoagulation. See plan for pubic rami fracture below. (2) Fracture of superior ramus of left pubis: Qualifiers: Encounter type: initial encounter Fracture type: closed Qualified Code(s): S32.512A - Fracture of superior rim of left pubis, initial encounter for closed fracture Code(s): S32.512A - Fracture of superior rim of left pubis, initial encounter for closed fracture Status: Acute Assessment and Plan: S/p mechanical ground level fall - Hip/pelvis CT showing no definite acute osseous abnormality pelvis and left hip. Lucency in the right intertrochanteric area which may indicate a fracture. Lucency seen in the left superior pubic ramus. - Pelvis CT showing healing fracture in the right femoral greater trochanter and in the left sacral alar and a fracture in the left superior pubic ramus seen on the coronal images - Analgesics - DVT ppx: SCD - PT/OT per ortho recommendations - Ortho consulted, appreciate recommendations (3) Hypothyroidism (acquired): Code(s): E03.9 - Hypothyroidism, unspecified Status: Acute Assessment and Plan: Chronic, continue home medications - Synthroid 75 mcg daily (4) Osteoporosis: Qualifiers: Osteoporosis type: age-related Presence of current pathological fracture: without current pathological fracture Qualified Code(s): M81.0 - Age- related osteoporosis without current pathological fracture Code(s): M81.0 - Age-related osteoporosis without current pathological fracture Status: Acute Assessment and Plan: Chronic, continue home medications Subjective Date/time seen: 10/09/24 07:27 Interval history: 84 year old female with past medical history of osteoporosis and hypothyroidism presents to the hospital following a ground level fall. ED workup: CBC with WBC 11.5, H/H 12.5/39.9, PLT 210. PT/INR 13.6/1. CMP with Na 139, K 3.8. BUN/Cr 22/0.69 and GFR > 60. Glucose 100. LFTs WNL. Hip/pelvis CT showing no definite acute osseous abnormality pelvis and left hip. Lucency in the right intertrochanteric area which may indicate a fracture. Lucency seen in the left superior pubic ramus. Pelvis CT showing healing fracture in the right femoral greater trochanter and in the left sacral alar and a fracture in the left superior pubic ramus seen on the coronal images Review of Systems Review of Systems: All systems reviewed & are unremarkable except as noted in HPI and below Exam Narrative: AF General: well nourished, well-developed female in no acute respiratory distress who is nontoxic appearing, lying semi recumbent in bed. HEENT: Normocephalic. Atraumatic. Pupils equal round reactive to light. Extraocular movement intact. Sclera clear and anicteric. Nares patent. No oral lesions. Moist mucous membranes. Tongue is midline. Palate edward symmetrically. No facial asymmetry. Neck: Neck was supple. No dominant adenopathy, thyromegaly or masses. 2+ carotid upstrokes without bruits. Chest: Lungs are clear to auscultation bilaterlly. No wheezes or crackles. CV: Heart was regular rate and rhythm. S1-S2. No murmurs, gallops, or rubs. Abd: Abdomen was soft. Nontender. Nondistended. Postive bowel sounds. No organomegaly or masses. Ext: No clubbing, cyanosis, or edema. 2+ DP pulses bilaterally. Neuro: Patient is alert and oriented x4. Strenth is 5/5 in both upper and lower extremities. Cranial nerves 2-12 are intact. Speech is clear. Psych: Normal nood and affect. Patient is pleasant and cooperative. Skin: Warm and dry. No rashes noted. Objective Data Vital Signs Vital Signs: Vital Signs - 24 hr 10/08/24 17:15 10/08/24 18:01 10/08/24 18:16 Temperature 97.9 F 97.8 F Pulse Rate 76 80 78 Respiratory Rate 16 17 18 Blood Pressure 179/99 H 179/98 H 191/92 H Pulse Oximetry 97 97 97 Oxygen Delivery Room Air 10/08/24 18:31 10/08/24 19:25 10/08/24 22:43 Temperature 97.8 F Pulse Rate 77 73 82 Respiratory Rate 15 17 13 Blood Pressure 172/87 H 171/87 H 185/95 H Pulse Oximetry 99 99 95 Oxygen Delivery 10/08/24 22:49 10/08/24 23:44 10/09/24 00:30 Temperature 98.4 F Pulse Rate 82 78 Respiratory Rate 13 16 Blood Pressure 185/95 H 164/84 H Pulse Oximetry 95 95 Oxygen Delivery Room Air 10/09/24 04:24 Temperature 98.5 F Pulse Rate 78 Respiratory Rate 16 Blood Pressure 158/85 H Pulse Oximetry 96 Oxygen Delivery Intake/Output Intake/Output: Intake & Output 10/06/24 10/07/24 10/08/24 10/09/24 23:59 23:59 23:59 23:59 Intake Total 100 Balance 100 Meds/Results Medications: Active Medications Generic Name Dose Route Start Last Admin Trade Name Freq PRN Reason Stop Dose Admin Acetaminophen 650 mg 10/08/24 21:32 10/08/24 23:33 Acetaminophen 325 Mg Tablet PO 650 mg Q4H PRN Administration Mild Pain (1-3) or Fever Hydrocodone Bitart/Acetaminophen 1 tab 10/08/24 21:32 Hydrocodone/Acetaminophen (*Crx) 5-325 Mg Tablet PO Q4H PRN Pain Rated 4-6 Radiology Results: ITS Impressions Hip/Pelvis X-Ray 10/08/24 17:52 IMPRESSION: No definite acute osseous abnormality pelvis and left hip. Lucency in the right intertrochanteric area which may indicate a fracture. Lucency seen in the left superior pubic ramus. CT evaluation is advised. Pelvis CT 10/08/24 20:28 IMPRESSION: Healing fracture in the right femoral greater trochanter and in the left sacral alar. Fracture in the left superior pubic ramus seen on the coronal images Labs Labs: Laboratory Results - last 24 hr 10/08/24 22:47 WBC 11.5 H RBC 4.31 Hgb 12.5 Hct 39.9 MCV 92.6 MCH 29.0 MCHC 31.3 L RDW 13.6 Plt Count 210 MPV 9.8 Immature Gran % (Auto) 0.3 Neut % (Auto) 83.0 H Lymph % (Auto) 10.6 L [place] % (Auto) 5.6 Eos % (Auto) 0.2 Baso % (Auto) 0.3 Lymph # (Auto) 1.22 [place] # (Auto) 0.6 Eos # (Auto) 0.0 Baso # (Auto) 0.0 Abs Immat Gran (auto) 0.04 H Absolute Neuts (auto) 9.6 H Absolute Nucleated RBC 0.000 Nucleated RBC % 0.0 PT 13.6 INR 1.0 APTT 29.9 Sodium 139 Potassium 3.8 Chloride 105 Carbon Dioxide 26 Anion Gap 8 BUN 22 H Creatinine 0.69 L Estim Creat Clear Calc 37 Estimated GFR > 60 Glucose 100 Calcium 8.7 Total Bilirubin 0.5 AST 39 H ALT 28 Alkaline Phosphatase 82 Total Protein 7.0 Albumin 4.1
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
[2024-10-09 08:42] VITALS: BP 145/71; PULSE 81; RESP 16; TEMP 36.3; O2SAT 96
[2024-10-09] MEDS: CALCIUM CARBONATE (TUMS) 500 MG (200 MG ELEMENTAL) PO (09:33)
[2024-10-09] MEDS: LEVOTHYROXINE SODIUM 75 MCG TABLET PO (09:33)
[2024-10-09] MEDS: HYDROcodone/acetaminophen (*CRX) 5-325 MG TABLET 1 TAB PO (12:28)
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
[2024-10-09 16:57] VITALS: BP 101/73; PULSE 84; RESP 12; TEMP 36.1; O2SAT 94
[2024-10-09] MEDS: LOVASTATIN 20 MG TABLET PO (17:00)
[2024-10-09 23:22] VITALS: BP 121/59; PULSE 77; RESP 16; TEMP 36.8; O2SAT 99
[2024-10-10] MEDS: LEVOTHYROXINE SODIUM 75 MCG TABLET PO (05:42)
[2024-10-10 05:55] LABS: Hematocrit 40.5 % (37.0-47.0); Hemoglobin 12.9 g/dL (12.0-15.0); Mean Corpuscular HGB Conc 31.9 g/dl (32-36); Mean Corpuscular Hemoglobin 29.6 pg (26-34); Mean Corpuscular Volume 92.9 fl (80-100); Mean Platelet Volume 10.2 fl (7.4-10.4); Platelet Count Result 212 k/mm3 (150-375); Red Blood Count 4.36 M/mm3 (4.2-5.4); White Blood Count 8.6 K/mm3 (4.5-10.0)
[2024-10-10 06:00] LABS: Alanine Aminotransferase 24 U/L (6-35); Albumin Level 3.8 g/dL (3.5-5.1); Alkaline Phosphatase 72 U/L (38-126); Anion Gap 3 mmol/L (4-12); Aspartate Amino Transferase 33 U/L (14-36); Bilirubin,Total 0.5 mg/dL (0.2-1.3); Blood Urea Nitrogen 23 mg/dL (7-17); Calcium 8.4 mg/dL (8.4-10.2); Carbon Dioxide 29 mmol/L (22-30); Chloride 106 mmol/L (98-107); Estimated CRCL calculation 35 ml/min; Estimated Glomerular Filt Rate > 60; Glucose 93 mg/dL (65-110); Sodium 138 mmol/L (137-145)
[2024-10-10 06:25] VITALS: BP 168/96; PULSE 77; RESP 16; TEMP 37; O2SAT 97
[2024-10-10] MEDS: HYDROcodone/acetaminophen (*CRX) 5-325 MG TABLET 1 TAB PO ×2 (07:00→11:49)
--- NOTE | 2024-10-10 07:00 | P.PNIM_ITS ---
Progress Note: A&P Assessment and Plan (1) Fall from ground level: Code(s): W18.30XA - Fall on same level, unspecified, initial encounter Status: Acute Assessment and Plan: S/p mechanical ground level fall Denies hitting head and LOC. Not on anticoagulation. Neurologically intact. See plan for pubic rami fracture below. (2) Fracture of superior ramus of left pubis: Qualifiers: Encounter type: initial encounter Fracture type: closed Qualified Code(s): S32.512A - Fracture of superior rim of left pubis, initial encounter for closed fracture Code(s): S32.512A - Fracture of superior rim of left pubis, initial encounter for closed fracture Status: Acute Assessment and Plan: S/p mechanical ground level fall Patient lives alone and will likely need placement for further therapy - Hip/pelvis CT showing no definite acute osseous abnormality pelvis and left hip. Lucency in the right intertrochanteric area which may indicate a fracture. Lucency seen in the left superior pubic ramus. - Pelvis CT showing healing fracture in the right femoral greater trochanter and in the left sacral alar and a fracture in the left superior pubic ramus seen on the coronal images - Analgesics - DVT ppx: SCD - PT/OT per ortho recommendations: WBAT. Recommending SNF. - Q2 hour turns and float heels to prevent pressure sores. - Ortho consulted, appreciate recommendations f/u in office in 3 weeks (3) Hypothyroidism (acquired): Code(s): E03.9 - Hypothyroidism, unspecified Status: Acute Assessment and Plan: Chronic, continue home medications - TSH 2.1 on 09/30/24 - Continue Synthroid 75 mcg daily (4) Osteoporosis: Qualifiers: Osteoporosis type: age-related Presence of current pathological fracture: without current pathological fracture Qualified Code(s): M81.0 - Age- related osteoporosis without current pathological fracture Code(s): M81.0 - Age-related osteoporosis without current pathological fracture Status: Acute Assessment and Plan: Chronic, continue home medications Time Spent With Patient Time with patient: 25 - 35 minutes Subjective Date/time seen: 10/10/24 07:00 Interval history: 84 year old female with past medical history of osteoporosis and hypothyroidism presents to the hospital following a ground level fall. Patient is pleasant lying comfortably in bed. She continues to endorse pain and is having difficulty with movement. She denies any tingling/numbness/shooting pain to the lower extremity. Sensation remains intact. She has no other complaints denying chest pain, palpitations, shortness of breath, nausea/vomiting, and abdominal pain. Encouraged patient to use IS. Encouraged out of bed to chair and working with therapy. Patient states understanding. Review of Systems Review of Systems: All systems reviewed & are unremarkable except as noted in HPI and below Exam Narrative: AF HR 74 RR 12 SpO2 96 BP 112/64 General: frail female in no acute respiratory distress who is nontoxic appearing, lying semi recumbent in bed. HEENT: Normocephalic. Atraumatic. Extraocular movement intact. Sclera clear and anicteric. No facial asymmetry. Chest: Lungs are clear to auscultation bilaterally. No wheezes or crackles. CV: Heart was regular rate and rhythm. S1-S2. No murmurs, gallops, or rubs. Abd: Abdomen was soft. Nontender. Nondistended. Positive bowel sounds. Ext: No clubbing, cyanosis, or edema. DP pulses bilaterally. Neuro: Patient is alert. Sensation intact. Speech is clear. Objective Data Vital Signs Vital Signs: Vital Signs - 24 hr 10/09/24 08:00 10/09/24 08:42 10/09/24 16:57 Temperature 97.3 F L 97 F L Pulse Rate 81 84 Respiratory Rate 16 12 Blood Pressure 145/71 H 101/73 Pulse Oximetry 96 94 Oxygen Delivery Room Air 10/09/24 20:00 10/09/24 23:22 10/10/24 06:25 Temperature 98.2 F 98.6 F Pulse Rate 77 77 Respiratory Rate 16 16 Blood Pressure 121/59 L 168/96 H Pulse Oximetry 99 97 Oxygen Delivery Room Air Intake/Output Intake/Output: Intake & Output 10/07/24 10/08/24 10/09/24 10/10/24 23:59 23:59 23:59 23:59 Intake Total 200 150 Output Total 400 100 Balance -200 50 Meds/Results Medications: Active Medications Generic Name Dose Route Start Last Admin Trade Name Freq PRN Reason Stop Dose Admin Acetaminophen 650 mg 10/08/24 21:32 10/08/24 23:33 Acetaminophen 325 Mg Tablet PO 650 mg Q4H PRN Administration Mild Pain (1-3) or Fever Hydrocodone Bitart/Acetaminophen 1 tab 10/08/24 21:32 10/10/24 07:00 Hydrocodone/Acetaminophen (*Crx) 5-325 Mg Tablet PO 1 tab Q4H PRN Administration Pain Rated 4-6 Calcium Carbonate 500 mg 10/09/24 09:00 10/09/24 09:33 Calcium Carbonate (Tums) 500 Mg (200 Mg Elemental) PO 500 mg DAILY CAROLYN Administration Levothyroxine Sodium 75 mcg 10/09/24 06:30 10/10/24 05:42 Levothyroxine Sodium 75 Mcg Tablet PO 75 mcg DAILY@0630 CAROLYN Administration Lovastatin 20 mg 10/09/24 18:00 10/09/24 17:00 Lovastatin 20 Mg Tablet PO 20 mg QPM CAROLYN Administration Radiology Results: ITS Impressions Hip/Pelvis X-Ray 10/08/24 17:52 IMPRESSION: No definite acute osseous abnormality pelvis and left hip. Lucency in the right intertrochanteric area which may indicate a fracture. Lucency seen in the left superior pubic ramus. CT evaluation is advised. Pelvis CT 10/08/24 20:28 IMPRESSION: Healing fracture in the right femoral greater trochanter and in the left sacral alar. Fracture in the left superior pubic ramus seen on the coronal images Labs Labs: Laboratory Results - last 24 hr 10/10/24 05:00 WBC 8.6 RBC 4.36 Hgb 12.9 Hct 40.5 MCV 92.9 MCH 29.6 MCHC 31.9 L RDW 14.0 Plt Count 212 MPV 10.2 Sodium 138 Potassium 4.0 Chloride 106 Carbon Dioxide 29 Anion Gap 3 L BUN 23 H Creatinine 0.68 L Estim Creat Clear Calc 35 Estimated GFR > 60 Glucose 93 Calcium 8.4 Total Bilirubin 0.5 AST 33 ALT 24 Alkaline Phosphatase 72 Total Protein 7.0 Albumin 3.8 Quality VTE Prophylaxis VTE prophylaxis: mechanical ordered
[2024-10-10] MEDS: CALCIUM CARBONATE (TUMS) 500 MG (200 MG ELEMENTAL) PO (08:08)
--- NOTE | 2024-10-10 12:21 | PM.PNORT ---
Progress Note: A&P Assessment and Plan (1) Fracture of superior ramus of left pubis: Qualifiers: Encounter type: initial encounter Fracture type: closed Qualified Code(s): S32.512A - Fracture of superior rim of left pubis, initial encounter for closed fracture Code(s): S32.512A - Fracture of superior rim of left pubis, initial encounter for closed fracture Status: Acute Plan 84 yr old female with Left Pubic Rami fracture 1. Physical therapy evaluation today, out of bed to chair for meals 2. Decub precaution with q2 hour turns side to side, floating both heels 3. Pain management when working with physical therapy 4. Social work consultation for placement into rehab facility Subjective Subjective Date/Time Seen: 10/10/24 12:21 Principal diagnosis: pubic rami fracture left Interval history: Patient laying in bed this morning, comfortable when no movement. - severe pain with any movement of left lower extremity - slept well with minimal pain Exam Narrative: bilateral heels with no tenderness to palpation Objective Data Vital Signs Vital Signs: Vital Signs - 24 hr 10/09/24 16:57 10/09/24 20:00 10/09/24 23:22 Temperature 36.1 C L 36.8 C Pulse Rate 84 77 Respiratory Rate 12 16 Blood Pressure 101/73 121/59 L Pulse Oximetry 94 99 Oxygen Delivery Room Air 10/10/24 06:25 10/10/24 08:15 Temperature 37.0 C Pulse Rate 77 Respiratory Rate 16 Blood Pressure 168/96 H Pulse Oximetry 97 Oxygen Delivery Room Air Intake/Output Intake/Output: Intake & Output 10/07/24 10/08/24 10/09/24 10/10/24 23:59 23:59 23:59 23:59 Intake Total 200 250 Output Total 400 100 Balance -200 150 Meds/Results Medications: Active Medications Generic Name Dose Route Start Last Admin Trade Name Freq PRN Reason Stop Dose Admin Acetaminophen 650 mg 10/08/24 21:32 10/08/24 23:33 Acetaminophen 325 Mg Tablet PO 650 mg Q4H PRN Administration Mild Pain (1-3) or Fever Hydrocodone Bitart/Acetaminophen 1 tab 10/08/24 21:32 10/10/24 11:49 Hydrocodone/Acetaminophen (*Crx) 5-325 Mg Tablet PO 1 tab Q4H PRN Administration Pain Rated 4-6 Calcium Carbonate 500 mg 10/09/24 09:00 10/10/24 08:08 Calcium Carbonate (Tums) 500 Mg (200 Mg Elemental) PO 500 mg DAILY CAROLYN Administration Levothyroxine Sodium 75 mcg 10/09/24 06:30 10/10/24 05:42 Levothyroxine Sodium 75 Mcg Tablet PO 75 mcg DAILY@0630 CAROLYN Administration Lovastatin 20 mg 10/09/24 18:00 10/09/24 17:00 Lovastatin 20 Mg Tablet PO 20 mg QPM CAROLYN Administration Radiology Results: ITS Impressions Hip/Pelvis X-Ray 10/08/24 17:52 IMPRESSION: No definite acute osseous abnormality pelvis and left hip. Lucency in the right intertrochanteric area which may indicate a fracture. Lucency seen in the left superior pubic ramus. CT evaluation is advised. Pelvis CT 10/08/24 20:28 IMPRESSION: Healing fracture in the right femoral greater trochanter and in the left sacral alar. Fracture in the left superior pubic ramus seen on the coronal images Labs Labs: Laboratory Results - last 24 hr 10/10/24 05:00 WBC 8.6 RBC 4.36 Hgb 12.9 Hct 40.5 MCV 92.9 MCH 29.6 MCHC 31.9 L RDW 14.0 Plt Count 212 MPV 10.2 Sodium 138 Potassium 4.0 Chloride 106 Carbon Dioxide 29 Anion Gap 3 L BUN 23 H Creatinine 0.68 L Estim Creat Clear Calc 35 Estimated GFR > 60 Glucose 93 Calcium 8.4 Total Bilirubin 0.5 AST 33 ALT 24 Alkaline Phosphatase 72 Total Protein 7.0 Albumin 3.8
[2024-10-10 12:31] VITALS: BP 112/64; PULSE 74; RESP 12; TEMP 36.4; O2SAT 96
[2024-10-10] MEDS: LOVASTATIN 20 MG TABLET PO (17:00)
[2024-10-10 17:39] VITALS: BP 143/69; PULSE 78; RESP 16; TEMP 36.6; O2SAT 97
[2024-10-10 20:15] VITALS: BP 171/89; PULSE 81; RESP 16; TEMP 37.4; O2SAT 98
[2024-10-11] MEDS: HYDROcodone/acetaminophen (*CRX) 5-325 MG TABLET 1 TAB PO ×3 (00:16→13:02)
[2024-10-11 05:35] VITALS: BP 175/94; PULSE 79; RESP 16; TEMP 36.5; O2SAT 96
[2024-10-11 05:37] LABS: Hematocrit 41.3 % (37.0-47.0); Hemoglobin 12.8 g/dL (12.0-15.0); Mean Corpuscular Hemoglobin 29.2 pg (26-34); Mean Corpuscular Volume 94.1 fl (80-100); Mean Platelet Volume 10.1 fl (7.4-10.4); Platelet Count Result 215 k/mm3 (150-375); Red Blood Count 4.39 M/mm3 (4.2-5.4); White Blood Count 11.7 K/mm3 (4.5-10.0)
[2024-10-11] MEDS: LEVOTHYROXINE SODIUM 75 MCG TABLET PO (05:37)
[2024-10-11 05:47] LABS: Alanine Aminotransferase 24 U/L (6-35); Albumin Level 3.9 g/dL (3.5-5.1); Alkaline Phosphatase 78 U/L (38-126); Anion Gap 5 mmol/L (4-12); Aspartate Amino Transferase 30 U/L (14-36); Bilirubin,Total 0.5 mg/dL (0.2-1.3); Blood Urea Nitrogen 20 mg/dL (7-17); Calcium 8.5 mg/dL (8.4-10.2); Carbon Dioxide 29 mmol/L (22-30); Chloride 102 mmol/L (98-107); Estimated CRCL calculation 37 ml/min; Estimated Glomerular Filt Rate > 60; Glucose 101 mg/dL (65-110); Potassium 4.1 mmol/L (3.4-5.0); Sodium 136 mmol/L (137-145)
[2024-10-11] MEDS: CALCIUM CARBONATE (TUMS) 500 MG (200 MG ELEMENTAL) PO (08:49)
[2024-10-11 12:03] VITALS: BMI 17.6
--- NOTE | 2024-10-11 13:25 | P.PNIM_ITS ---
Progress Note: A&P Assessment and Plan (1) Fall from ground level: Code(s): W18.30XA - Fall on same level, unspecified, initial encounter Status: Acute Assessment and Plan: S/p mechanical ground level fall Denies hitting head and LOC. Not on anticoagulation. Neurologically intact. See plan for pubic rami fracture below. (2) Fracture of superior ramus of left pubis: Qualifiers: Encounter type: initial encounter Fracture type: closed Qualified Code(s): S32.512A - Fracture of superior rim of left pubis, initial encounter for closed fracture Code(s): S32.512A - Fracture of superior rim of left pubis, initial encounter for closed fracture Status: Acute Assessment and Plan: S/p mechanical ground level fall Patient lives alone and will likely need placement for further therapy - Hip/pelvis CT showing no definite acute osseous abnormality pelvis and left hip. Lucency in the right intertrochanteric area which may indicate a fracture. Lucency seen in the left superior pubic ramus. - Pelvis CT showing healing fracture in the right femoral greater trochanter and in the left sacral alar and a fracture in the left superior pubic ramus seen on the coronal images - Analgesics - DVT ppx: SCD - PT/OT per ortho recommendations: WBAT. Recommending SNF. Care coordination following for placement. - Q2 hour turns and float heels to prevent pressure sores. - Ortho consulted, appreciate recommendations f/u in office in 3 weeks Slight leukocytosis today, however likely inflammatory given recent fall with fracture as exam is benign and patient has no complaints concerning for infection. (3) Hypothyroidism (acquired): Code(s): E03.9 - Hypothyroidism, unspecified Status: Acute Assessment and Plan: Chronic, continue home medications - TSH 2.1 on 09/30/24 - Continue Synthroid 75 mcg daily (4) Osteoporosis: Qualifiers: Osteoporosis type: age-related Presence of current pathological fracture: without current pathological fracture Qualified Code(s): M81.0 - Age- related osteoporosis without current pathological fracture Code(s): M81.0 - Age-related osteoporosis without current pathological fracture Status: Acute Assessment and Plan: Chronic, continue home medications Time Spent With Patient Time with patient: 25 - 35 minutes Subjective Date/time seen: 10/11/24 13:25 Interval history: 84 year old female with past medical history of osteoporosis and hypothyroidism presents to the hospital following a ground level fall. Patient is pleasant lying comfortably in bed with family at bedside. Patient has no complaints denying chest pain, palpitations, shortness of breath, nausea/vomiting, abdominal pain, diarrhea, and any urinary tract infection like symptoms. She continues to endorse pain with movement but is working well with therapy. Review of Systems Review of Systems: All systems reviewed & are unremarkable except as noted in HPI and below Exam Narrative: AF HR 83 RR 18 SpO2 95 BP 107/58 General: frail female in no acute respiratory distress who is nontoxic appearing, lying semi recumbent in bed. HEENT: Normocephalic. Atraumatic. Extraocular movement intact. Sclera clear and anicteric. No facial asymmetry. Chest: Lungs are clear to auscultation bilaterally. No wheezes or crackles. CV: Heart was regular rate and rhythm. S1-S2. No murmurs, gallops, or rubs. Abd: Abdomen was soft. Nontender. Nondistended. Positive bowel sounds. Ext: No clubbing, cyanosis, or edema. DP pulses bilaterally. Neuro: Patient is alert. Sensation intact. Speech is clear. Objective Data Vital Signs Vital Signs: Vital Signs - 24 hr 10/10/24 17:39 10/10/24 20:15 10/11/24 05:35 Temperature 97.8 F 99.3 F 97.7 F Pulse Rate 78 81 79 Respiratory Rate 16 16 16 Blood Pressure 143/69 H 171/89 H 175/94 H Pulse Oximetry 97 98 96 Intake/Output Intake/Output: Intake & Output 10/08/24 10/09/24 10/10/24 10/11/24 23:59 23:59 23:59 23:59 Intake Total 200 350 710 Output Total 400 400 200 Balance -200 -50 510 Meds/Results Medications: Active Medications Generic Name Dose Route Start Last Admin Trade Name Freq PRN Reason Stop Dose Admin Acetaminophen 650 mg 10/08/24 21:32 10/08/24 23:33 Acetaminophen 325 Mg Tablet PO 650 mg Q4H PRN Administration Mild Pain (1-3) or Fever Hydrocodone Bitart/Acetaminophen 1 tab 10/08/24 21:32 10/11/24 13:02 Hydrocodone/Acetaminophen (*Crx) 5-325 Mg Tablet PO 1 tab Q4H PRN Administration Pain Rated 4-6 Calcium Carbonate 500 mg 10/09/24 09:00 10/11/24 08:49 Calcium Carbonate (Tums) 500 Mg (200 Mg Elemental) PO 500 mg DAILY CAROLYN Administration Levothyroxine Sodium 75 mcg 10/09/24 06:30 10/11/24 05:37 Levothyroxine Sodium 75 Mcg Tablet PO 75 mcg DAILY@0630 CRAOLYN Administration Lovastatin 20 mg 10/09/24 18:00 10/10/24 17:00 Lovastatin 20 Mg Tablet PO 20 mg QPM CAROLYN Administration Radiology Results: ITS Impressions Hip/Pelvis X-Ray 10/08/24 17:52 IMPRESSION: No definite acute osseous abnormality pelvis and left hip. Lucency in the right intertrochanteric area which may indicate a fracture. Lucency seen in the left superior pubic ramus. CT evaluation is advised. Pelvis CT 10/08/24 20:28 IMPRESSION: Healing fracture in the right femoral greater trochanter and in the left sacral alar. Fracture in the left superior pubic ramus seen on the coronal images Labs Labs: Laboratory Results - last 24 hr 10/11/24 05:21 WBC 11.7 H RBC 4.39 Hgb 12.8 Hct 41.3 MCV 94.1 MCH 29.2 MCHC 31.0 L RDW 14.0 Plt Count 215 MPV 10.1 Sodium 136 L Potassium 4.1 Chloride 102 Carbon Dioxide 29 Anion Gap 5 BUN 20 H Creatinine 0.64 L Estim Creat Clear Calc 37 Estimated GFR > 60 Glucose 101 Calcium 8.5 Total Bilirubin 0.5 AST 30 ALT 24 Alkaline Phosphatase 78 Total Protein 7.0 Albumin 3.9 Quality VTE Prophylaxis VTE prophylaxis: mechanical ordered
[2024-10-11 14:24] VITALS: BP 107/58; PULSE 83; RESP 18; TEMP 36.6; O2SAT 95
[2024-10-11] MEDS: LOVASTATIN 20 MG TABLET PO (17:07)
[2024-10-11 21:30] VITALS: BP 169/89; PULSE 84; RESP 20; TEMP 37.3; O2SAT 96
[2024-10-12] MEDS: HYDROcodone/acetaminophen (*CRX) 5-325 MG TABLET 1 TAB PO (04:41)
[2024-10-12] MEDS: LEVOTHYROXINE SODIUM 75 MCG TABLET PO (04:42)
[2024-10-12 05:25] VITALS: BP 157/89; PULSE 76; RESP 20; TEMP 36.9; O2SAT 96
[2024-10-12 06:57] LABS: Hematocrit 40.9 % (37.0-47.0); Hemoglobin 12.5 g/dL (12.0-15.0); Mean Corpuscular HGB Conc 30.6 g/dl (32-36); Mean Corpuscular Hemoglobin 29.1 pg (26-34); Mean Corpuscular Volume 95.3 fl (80-100); Mean Platelet Volume 10.6 fl (7.4-10.4); Platelet Count Result 218 k/mm3 (150-375); Red Blood Count 4.29 M/mm3 (4.2-5.4); Red Cell Distribution Width 13.8 % (11.5-14.5); White Blood Count 8.6 K/mm3 (4.5-10.0)
[2024-10-12 07:09] LABS: Alanine Aminotransferase 22 U/L (6-35); Albumin Level 3.8 g/dL (3.5-5.1); Alkaline Phosphatase 78 U/L (38-126); Anion Gap 5 mmol/L (4-12); Aspartate Amino Transferase 30 U/L (14-36); Bilirubin,Total 0.5 mg/dL (0.2-1.3); Blood Urea Nitrogen 18 mg/dL (7-17); Calcium 8.5 mg/dL (8.4-10.2); Carbon Dioxide 32 mmol/L (22-30); Chloride 102 mmol/L (98-107); Estimated CRCL calculation 33 ml/min; Estimated Glomerular Filt Rate > 60; Glucose 105 mg/dL (65-110); Potassium 3.6 mmol/L (3.4-5.0); Sodium 139 mmol/L (137-145)
[2024-10-12] MEDS: CALCIUM CARBONATE (TUMS) 500 MG (200 MG ELEMENTAL) PO (08:25)
--- NOTE | 2024-10-12 12:51 | P.DS_ITS ---
DS: Admitting Diagnosis Discharge Date 10/12/24 Admitting Diagnosis fall from ground level fracture of superior ramus of left pubis hypothyroidism osteoporosis DS: Discharge Diagnosis Discharge Diagnosis (1) Fall from ground level: Code(s): W18.30XA - Fall on same level, unspecified, initial encounter Status: Acute (2) Fracture of superior ramus of left pubis: Qualifiers: Encounter type: initial encounter Fracture type: closed Qualified Code(s): S32.512A - Fracture of superior rim of left pubis, initial encounter for closed fracture Code(s): S32.512A - Fracture of superior rim of left pubis, initial encounter for closed fracture Status: Acute (3) Hypothyroidism (acquired): Code(s): E03.9 - Hypothyroidism, unspecified Status: Acute (4) Osteoporosis: Qualifiers: Osteoporosis type: age-related Presence of current pathological fracture: without current pathological fracture Qualified Code(s): M81.0 - Age- related osteoporosis without current pathological fracture Code(s): M81.0 - Age-related osteoporosis without current pathological fracture Status: Acute DS: Summary Hospital Course Reason for hospitalization: fall from ground level fracture of superior ramus of left pubis hypothyroidism osteoporosis Hospital Course: 84 year old female with past medical history of osteoporosis and hypothyroidism presents to the hospital following a ground level fall. Patient states that she had rain coming into her house which caused her door rug to get wet and upon taking it to her garage she became off balance causing her to fall. Patient notes that she was using her walker at this time and fell forward onto her left side. She denies any dizziness or lightheadedness prior to the fall. She denies a head strike and loss of consciousness. She is not on any anticoagulation. Hip/pelvis XR showing no definite acute osseous abnormality pelvis and left hip. Lucency in the right intertrochanteric area which may indicate a fracture. Lucency seen in the left superior pubic ramus. Pelvis CT showing healing fracture in the right femoral greater trochanter and in the left sacral alar and a fracture in the left superior pubic ramus seen on the coronal images. Ortho consulted. No acute surgical intervention required. Patient remains weight bearing as tolerated. Plan for ortho follow up in 3 weeks. Patient had no complaints at time of discharge denying chest pain, shortness a breath, nausea/vomiting, abdominal pain, dizziness/lightheadedness, tingling/numbness. Patient discharged to SNF in a stable condition. She has a follow-up with her primary care provider in 1 week and Ortho as scheduled. Status at Discharge Functional status at discharge: uses cane/walker Time Spent with Patient Time attestation: Total time spent providing and/or coordinating discharge services: Time spent: Greater than 30 minutes Exam Narrative: AF HR 76 RR 20 SPO2 96 BP 157/89 General: frail female in no acute respiratory distress who is nontoxic appearing, lying semi recumbent in bed. HEENT: Normocephalic. Atraumatic. Extraocular movement intact. Sclera clear and anicteric. No facial asymmetry. Chest: Lungs are clear to auscultation bilaterally. No wheezes or crackles. CV: Heart was regular rate and rhythm. Abd: Abdomen was soft. Nontender. Nondistended. Positive bowel sounds. Ext: No clubbing, cyanosis, or edema. DP pulses bilaterally. Sensation intact. Wiggling toes. Neuro: Patient is alert. Sensation intact. Speech is clear. DS: Data Data Completed and Pending Completed studies during hospitalization: pelvis ct hip/pelvis xr Labs on day of discharge: Labs from last 24 hours 10/12/24 05:23 WBC 8.6 RBC 4.29 Hgb 12.5 Hct 40.9 MCV 95.3 MCH 29.1 MCHC 30.6 L RDW 13.8 Plt Count 218 MPV 10.6 H Sodium 139 Potassium 3.6 Chloride 102 Carbon Dioxide 32 H Anion Gap 5 BUN 18 H Creatinine 0.73 Estim Creat Clear Calc 33 Estimated GFR > 60 Glucose 105 Calcium 8.5 Total Bilirubin 0.5 AST 30 ALT 22 Alkaline Phosphatase 78 Total Protein 7.0 Albumin 3.8 Discharge Plan Discharge Attending physician on discharge: Jonathan Garduno Consulting providers: Yonis Araya Discharging Clinician: Nadia Nair Anticipated Discharge Date/Time: 10/12/24 12:47 Patient Disposition: SNF Activity: as tolerated Diet: as tolerated and heart healthy Discharge Instructions: Discharge disposition: Patient admitted to the hospital for a fall and obtained a fracture to superior ramus of left pubis Evaluated by ortho Continue physical therapy, weight baring as tolerated Pain management when working with therapy [place] as needed, attached is information on this medication Continue floating heels and turning to avoid pressure ulcers Follow up with ortho Dr. Araya in 3 weeks, call for appointment Monitor blood pressures Take caution while standing, rising, or moving Change positions slowly taking a break between each position change If you standing feel dizzy sit back down and take a break Encouraged to continue with yearly vaccinations Return to the emergency department if he developed sudden shortness of breath, chest pain, nausea, vomiting, upset stomach or intractable diarrhea Return to the emergency department if you develop fever greater than 101.5 Follow-up with the primary care physician within 1-2 weeks Thank you for choosing [facility] for your healthcare needs Patient Instructions: Hydrocodone/Acetaminophen (By mouth), Pelvic Fracture (DC) Patient Language: Danish Stand Alone Forms: General Discharge Information Follow-up/Referrals: Ehsan Meyers APRN [Primary Care Provider] - 1 Week Yonis Araya MD [Physician] - 3 Weeks Discharge Medications: New hydrocodone-acetaminophen 5-325 mg Tablet 1 tablet PO Q4H PRN (Reason: Pain Rated 4-6) Qty: 12 0RF Continued calcium carbonate [Calcium 500] 500 mg calcium (1,250 mg) tablet,chewable 500 mg PO DAILY lovastatin 20 mg tablet See Rx Instructions .ROUTE .COMPLEX Qty: 90 1RF Dose Instruction: TAKE 1 TABLET BY MOUTH EVERY EVENING Rx Instructions: TAKE 1 TABLET BY MOUTH EVERY EVENING levothyroxine 75 mcg tablet 75 mcg PO QAM Qty: 90 3RF multivitamin Tablet 1 tablet PO DAILY Prolia 60 mg/mL syringe 60 mg subcut [id number] Qty: 1 1RF Date of admission: 10/09/24 09:39 Primary Care Provider: Ehsan Meyers Admitting Provider: Amelie Sylvester Attending physician on admission: Nadia Nair Condition: Stable Hospitalist MIPS Heart Failure (Exclusion) Patient has history of Heart Transplant or Left Ventricular Assistive Device?: No IF YES, STOP HERE Heart Failure (Qualifier) Patient has current or prior documentation of LVEF less than or equal to 40%, or mod/servere depressed LVSF?: No IF NO, STOP HERE
[2024-10-12] MEDS: ACETAMINOPHEN 325 MG TABLET 650 MG PO (14:30)
== END 2024-10-12 15:15 | DRG 536 ==
LOC: ANHED 21:43 → ANH3MEDSUR 22:46
PROVIDERS: Admitting Provider Internal Medicine; Emergency Provider Physician Assistant; PCP Nurse Practitioner; Visit Provider Student in an Organized Health Care Education/Training Program
DX: S32.512A Fracture of superior rim of left pubis, initial encounter for closed fracture (principal); W01.0XXA Fall on same level from slipping, tripping and stumbling without subsequent striking against object, initial encounter; E78.5 Hyperlipidemia, unspecified; E03.9 Hypothyroidism, unspecified; I10 Essential (primary) hypertension; M81.0 Age-related osteoporosis without current pathological fracture; Z66 Do not resuscitate
CPT/HCPCS: 36415; 72192; 73502; 80053; 85025; 85027; 85610; 85730; 92610; 97110; 97116; 97161; 97165; 97530; 97535; 99285; A9270; G0378

== ENCOUNTER 2025-03-24 14:56 | Outpatient (CLI) | payer MEDICARE, SELFPAY ==
[2025-03-24 17:01] LABS: Add Urine Microscopic? YES; Appearance Urine Clear (Clear); Glucose Urine UA Negative (Negative); Leukocyte Esterase Ur 1+ LEU/UL (Negative); Nitrate Urine Negative (Negative); Non Pathogenic Casts 0-2; Specific Grav Ur 1.012 (1.001-1.035)
== END 2025-03-24 14:57 | disposition home or self-care (01) ==
PROVIDERS: PCP Nurse Practitioner; Visit Provider Nurse Practitioner
DX: N39.0 Urinary tract infection, site not specified (principal)
CPT/HCPCS: 81001; 87086; 87186

== ENCOUNTER 2025-04-15 13:50 | Outpatient (CLI) | payer MEDICARE, SELFPAY ==
--- NOTE | ~2025-04-15 | XR_ITS ---
EXAMINATION: XR hip LT 2V w AP pelvis, 04/15/2025 14:06 DISABILITY LIAISON OFFICER HISTORY: W19.XXXA - Unspecified fall, initial encounter COMPARISON: No comparisons available. Findings: No acute fracture or malalignment. Moderate degenerative changes. Soft tissues unremarkable. Impression: No acute fracture or malalignment. Reviewed, dictated and finalized at location P. BILITY LIAISON OFFICER Impression: No acute fracture or malalignment.
--- NOTE | ~2025-04-15 | XR_ITS ---
EXAMINATION: XR wrist LT 2V DATE: 04/15/2025 14:15 INDICATION: Trauma due to fall. TECHNIQUE: 3 views of the left wrist were obtained. COMPARISON: None. FINDINGS: Diffusely osteopenic bones. No definite acute fracture. Increased soft tissue space between the scaphoid and lunate bone suggests disruption of scapholunate ligament of unknown acuity. Soft tissue swelling on the dorsal aspect of the wrist. Advanced degenerative changes of first carpometacarpal joint. IMPRESSION: 1. Osteopenic bones. Please correlate with DEXA densitometry. 2. No acute fracture. Soft tissue changes suggests disruption of scapholunate ligament of undetermined acuity. Soft tissue swelling noted at the wrist. If symptoms warrant MRI may be considered. 3. Advanced degenerative changes of first carpal metacarpal joint. Reviewed, dictated and finalized at location T. CISE PHYSIOLOGY PROFESSOR IMPRESSION: 1. Osteopenic bones. Please correlate with DEXA densitometry. 2. No acute fracture. Soft tissue changes suggests disruption of scapholunate l igament of undetermined acuity. Soft tissue swelling noted at the wrist. If sym ptoms warrant MRI may be considered. 3. Advanced degenerative changes of first carpal metacarpal joint.
--- OUTSIDE RECORDS SUMMARY | 2025-04-15 13:53 | XMS_ITS | Continuity of Care Document ---
Author Organization [facility], [facility] [place] Address [address] [place] [address] Care Team Providers Care Microbiology Lab Technician Name Role Phone CHAD FRANCO Primary Care Provider CHAD FRANCO Referring Provider [phone] Assessment Encounter Date Assessment Date Assessment LastModified by Organization Details LastModified Time 03/22/2025 03/22/2025 This note is dictated and transcribed by [employer]. Software Release Engineer variances may occur. Despite proofreading, typographical errors may occur. Occasional wrong-word or 'jkwjj-f-ceaj' substitutions may have occurred due to the inherent limitations of voice recording. Read the chart carefully and recognize, using context, where substitutions have occurred. brook Not available 03/22/2025 14:58:25 Plan of Treatment Reminders Order Date Submit Date Provider Last Modified By Organization Details Last Modified Time Details Appointments Establish ed Patient 10 2025 01:30P M Bacilio Hutchinson DPM Not available Not [...] Recorded Time Pain of right shoulder joint 8985098682311 9100 Active 2022 [facility] Capone, [facility] 3 14:36:01 Foot callus 584214309 Active 2024 Bacilio Hutchinson DPM [address], [place], [address], [employer] 5 12:11:56 Generalized osteoarthri tis 765361064 Active 2024 Bacilio Hutchinson DPM [address], [address], [place], [address], [employer] 5 12:12:06 Pain in bilateral feet 9873051692533 9102 Active 2024 Bacilio Hutchinson DPM [address], [address], [place], [address], [employer] 5 12:12:43 Fat pad syndrome 345929764 Active 2024 Bacilio Hutchinson DPM [address], [place], [address], [employer] 5 12:13:15 Dystrophia unguium 12098854 Active 2024 Bacilio Hutchinson DPM [address], [place], [address], [employer] 5 09:34:12 Pain of toes of bilateral feet 0434604163973 9102 Active 2024 Bacilio Hutchinson DPM [address], [address], [place], [address], [employer] 5 13:47:11 Problem Notes None recorded. Procedures Surgical History Date Name Laterality Status Provider Name and Address Organization Details Recorded Time 5 Nail Debridement completed Bacilio Hutchinson DPM [address], [address], [place], [address], [employer] 03/22/2025 14:57:43 5 Nail Debridement completed Bacilio Hutchinson DPM [address], [address], [place], [address], [employer] [facility] [employer] 12/15/2024 13:46:53 5 Nail Debridement completed Bacilio Hutchinson DPM [address], [address], [place], [address], [employer] 10/27/2024 10:04:35 5 Callus Debridement, One completed Bacilio Hutchinson DPM [address], [place], [address], [employer] [facility] [employer] 10/27/2024 10:04:15 5 Nail Debridement completed Bacilio Hutchinson DPM [address], [place], [address], [employer] 07/22/2024 17:32:20 5 Callus Debridement 2-4 completed Bacilio Hutchinson DPM [address], [place], [address], [employer] 07/22/2024 17:32:17 5 Nail Debridement completed Bacilio Hutchinson DPM [address], [address], [place], [address], [employer] 07/12/2024 09:33:58 5 Callus Debridement 2-4 completed Bacilio Hutchinson DPM [address], [address], [place], [address], [employer] 07/05/2024 16:32:24 5 Callus Debridement 2-4 completed Bacilio Hutchinson DPM [address], [place], [address], [employer] [facility] 06/07/2024 12:11:36 Imaging Results None recorded. Procedure [...] Not Available Not Available Not Available amoxicillin 875 mg-potassiu m clavulanate 125 mg tablet TAKE 1 TABLET ORALLY TWICE A DAY FOR 7 DAYS active Not Available Not Available No t Available amoxicillin 500 mg-potassiu m clavulanate 125 [...] and Address Organization Details Last Updated DateTime 03/22/2025 157.48 cm 17.6 kg/m2 48792.87 g CHARLIE Castillo [facility] [employer] 03/22/2025 14:37:39 Date Recorded Heart rate Respiratory rate Oxygen saturation Systolic And Diastolic Provider Name and Address Organization Details Last Updated DateTime 03/22/2025 81 /min 14 /min 98 % 106/68 mm[Hg] Lakshmi Antoine [facility] [employer] 14:39:43 Social History Question Answer Notes LastModified by Organizat ion Details LastModified Time Tobacco Smoking Status Never Smoker Lakshmi guidry [facility] [employer] 06/07/2024 12:24:25 What Is Your Level Of Caffeine Consumption? Occasional Information not available 06/07/2024 What Was The Date Of Your Most Recent Tobacco Screening? 06/07/2024 Information not available 06/07/2024 Has Tobacco Cessation Counseling Been Provided? No Information not available 06/07/2024 Sex: Unknown Functional Status Question Answer Note LastModified by Organizat ion Details LastModified Time Do you use any [...] Time Father Family history of malignant neoplasm [email or web address] Not available 2022 14:34:48 Mother Hypertensive disorder [email or web address] Not available 2022 14:35:03 Mother Diabetes mellitus [...] Diagnosis SNOMED-CT Code Diagnosis ICD10 Code Diagnosis IMO Codes Diagnosis Note [id number] Bacilio Hutchinson DPM [facility] [place] [address] [facility] [address] [place] [address] 03/22/2025 14:34:23 03/23/2025 16:03:58 Dystrophia unguium 39033870 L60.3 Nails 1 through 10 were debrided with sharp mechanical debridemen t without incident. Nails were debrided and greater than 50% length and thickness where needed. Pain of to es of bilateral feet 9012503101 3177415 M79.674 M79.675 [id number] Secondary to elongated toenails Health Concerns Section Related Observation LastModified by Organization Detai ls LastModified Time None Recorded Concern Status LastModified by Organization Details LastModified Time None Recorded Payers Encounter Date Sequence Insurance Name Policy Number Policy Cabral Covered Member ID Cabral Member ID Guarantor Name 03/22/2025 1 [place] Mely Wheatley [id number] Mely Wheatley 03/22/2025 2 SECURE ADMINISTRATIVE SERVICES - [facility] (MEDICARE SUPPLEMENT) [employer]IC Mely Wheatley [id number] Mely Wheatley OBGyn Episode No OBEpisode recorded.
--- OUTSIDE RECORDS SUMMARY | 2025-04-15 13:53 | XMS_ITS | Data Portability ---
Author Organization [place] [facility] [place] [facility], Main Office Address [address] [place] [address] Care Team Providers Care Sliver Former Name Role Phone CHAD FRANCO Primary Care Provider CHAD FRANCO Referring Provider [phone] Assessment Encounter Date Assessment Date Assessment LastModified by Organization Details LastModified Time 07/05/2024 07/05/2024 This note is dictated and transcribed by [employer]. Molding Line Operator variances may occur. Despite proofreading, typographical errors may occur. Occasional wrong-word or 'zzgrj-h-rtsv' substitutions may have occurred due to the inherent limitations of voice recording. Read the chart carefully and recognize, using context, where substitutions have occurred. Not available 07/12/2024 09:34:06 07/22/2024 07/22/2024 This note is dictated and transcribed by [employer]. Molding Line Operator variances may occur. Despite proofreading, typographical errors may occur. Occasional wrong-word or 'sawyz-z-ycib' substitutions may have occurred due to the inherent limitations of voice recording. Read the chart carefully and recognize, using context, where substitutions have occurred. Not available 07/22/2024 17:32:27 09/30/2024 09/30/2024 This note is dictated and transcribed by [employer]. Molding Line Operator variances may occur. Despite proofreading, typographical errors may occur. Occasional wrong-word or 'svwyo-l-lyeq' substitutions may have occurred due to the inherent limitations of voice recording. Read the chart carefully and recognize, using context, where substitutions have occurred. Not available 10/27/2024 10:04:40 03/22/2025 03/22/2025 This note is dictated and transcribed by [employer]. Molding Line Operator variances may occur. Despite proofreading, typographical errors may occur. Occasional wrong-word or 'guuwu-n-rwdq' substitutions may have occurred due to the inherent limitations of voice recording. Read the chart carefully and recognize, using context, where substitutions have occurred. Not available 03/22/2025 14:58:25 Plan of Treatment [...] Recorded Time Pain of right shoulder joint 8322693164888 9100 Active 2022 CHARLIE Capone, [facility] 3 14:36:01 Foot callus 427055735 Active 2024 Bacilio Hutchinson DPM [address], [address], [place], [address], [facility] 5 12:11:56 Generalized osteoarthri tis 475675113 Active 2024 Bacilio Hutchinson DPM [address], [address], [place], [address], [facility] 5 12:12:06 Pain in bilateral feet 0167048323466 9102 Active 2024 Bacilio Hutchinson DPM [address], [address], [place], [address], [facility] 5 12:12:43 Fat pad syndrome 073124512 Active 2024 Bacilio Hutchinson DPM [address], [address], [place], [address], [facility] 5 12:13:15 Dystrophia unguium 67542669 Active 2024 Bacilio Hutchinson DPM [address], [address], [place], [address], [facility] 5 09:34:12 Pain of toes of bilateral feet 1315165784077 9102 Active 2024 Bacilio Hutchinson DPM [address], [address], [place], [address], [facility] 5 13:47:11 Problem Notes None recorded. Procedures Surgical History Date Name Laterality Status Provider Name and Address Organization Details Recorded Time 5 Nail Debridement completed Bacilio Hutchinson DPM [address], [address], [place], [address], [facility] 03/22/2025 14:57:43 5 Nail Debridement completed Bacilio Hutchinson DPM [address], [address], [place], [address], [facility] 12/15/2024 13:46:53 5 Nail Debridement completed Bacilio Hutchinson DPM [address], [address], [place], [address], [facility] 10/27/2024 10:04:35 5 Callus Debridement, One completed Bacilio Hutchinson DPM [address], [address], [place], [address], [facility] 10/27/2024 10:04:15 5 Nail Debridement completed [address], [place], [address], [facility] 07/22/2024 17:32:20 5 Callus Debridement 2-4 completed SANDRA [address], [place], [address], [employer] 07/22/2024 17:32:17 5 Nail Debridement completed Bacilio Hutchinson DPM [address], [address], [place], [address], [employer] [facility] [employer] [facility] 07/12/2024 09:33:58 5 Callus Debridement 2-4 completed Bacilio Hutchinson DPM [address], [address], [place], [address], [facility] [employer] [facility] 07/05/2024 16:32:24 5 Callus Debridement 2-4 completed Bacilio Hutchinson DPM [address], [facility] [address], [place], [address], [employer] [facility] [employer] [facility] 06/07/2024 12:11:36 Imaging Results None recorded. [...] rate Respiratory rate Body temperature Oxygen saturation Systolic And Diastolic Provider Name and Address Organization Details Last Updated DateTime 157.48 cm 17.4 kg/m2 18458.2 8 g 84 /min 16 /min 98 [degF] 96 % 130/76 mm[Hg] Shona Peewee [facility] 15:08:55 Date Recorded Body height Body mass index (BMI) Body weight Heart rate Respiratory rate Oxygen saturation Systolic And Diastolic Provider Name and Address Organization Details Last Updated DateTime 157.48 cm 17.4 kg/m2 58123.2 8 g 77 /min 14 /min 97 % 131/82 mm[Hg] Lakshmi Antoine [employer] 16:20:32 Date Recorded Body height Body mass index (BMI) Body weight Provider Name and Address Organization Details Last Updated DateTime 09/30/2024 157.48 cm 17.4 kg/m2 62044.28 g Lakshmi Antoine [employer] 09/30/2024 15:13:07 Date Recorded Body height Body mass index (BMI) Body weight Heart rate Respiratory rate Oxygen saturation Systolic And Diastolic Provider Name and Address Organization Details Last Updated DateTime 157.48 cm 17.4 kg/m2 20157.2 8 g 88 /min 14 /min 97 % 119/65 mm[Hg] Lakshmi Antoine [facility] 16:01:28 Date Recorded Body height Body mass index (BMI) Body weight Provider Name and Address Organization Details Last Updated DateTime 03/22/2025 157.48 cm 17.6 kg/m2 16858.87 g CHARLIE Castillo [employer] [facility] 03/22/2025 14:37:39 Date Recorded Heart rate Respiratory rate Oxygen saturation Systolic And Diastolic Provider Name and Address Organization Details Last Updated DateTime 03/22/2025 81 /min 14 /min 98 % 106/68 mm[Hg] Lakshmi Antoine [facility] [employer] 14:39:43 Social History Question Answer Notes LastModified by Organizat SDI Details LastModified Time Tobacco Smoking Status Never Smoker Lakshmi guidry [facility] [employer] [facility] 06/07/2024 12:24:25 What Is Your Level Of [...] Time Father Family history of malignant neoplasm [email or web address] Not available 2022 14:34:48 Mother Hypertensive disorder [email or web address] Not available 2022 14:35:03 Mother Diabetes mellitus Not available 2024 12:23:57 Medical History Condition Response ARTHRITIS Y THYROID DISEASE Y OSTEOPOROSIS Y URINARY/BLADDER/KIDNEY PROBLEMS Y HIGH CHOLESTEROL / HYPERLIPIDEMIA Y Gynecological HistoryNo gynecological history recorded. Obstetrics History GPAL:G 0 P 0 0 0 0 Past Encounters Encounter ID Performer Location Encounter Start Date Encounter Closed Date Diagnosis/Indication Diagnosis SNOMED-CT Code Diagnosis ICD10 Code Diagnosis IMO Codes Diagnosis Note [id number] Papa Christopher MD [facility] [address] 08/15/2022 14:10:26 08/15/2022 15:56:44 Pain of right shoulder joint 5380234329 4742199 M25.511 [id number] Papa Christopher MD [facility], [address] [place] [address] 09/26/2022 14:59:57 09/26/2022 15:25:05 Pain of right shoulder joint 0414469284 6813753 M25.111 [id number] Bacilio Hutchinson DPM [facility] [place] [address] [place] [address] 06/07/2024 11:35:11 06/18/2024 13:02:41 Pain in bilateral feet 6771842785 9737698 M79.671 M79.672 secondary to mild plantar flexed 1st ray due to arthritis bilateral and fat pad atrophy Foot callus 361297205 L8 4 worse to the right footbilate ral sub 1st metatarsal headdebrid ed without incidentre commend use of Amlactin and pumice stone daily Generalize d osteoarthritis 382054075 M15.9 bilateral feeteducat ed on conditionr ecommend supportive shoe gear and accommodat urbano insolesfol low-up 1 month Fat pad syndrome 0414071 03 E65 bilateral forefeetas above [id number] Bacilio Hutchinson DPM [facility] [place] [address] [place] [address] 07/05/2024 14:57:57 07/23/2024 13:35:16 Pain in bilateral feet 1014943253 9354224 M79.671 M79.672 secondary to mild plantar flexed 1st ray due to arthritis bilateral and fat pad atrophy Foot callus 168355625 L8 4 worse to the right footbilate ral sub 1st metatarsal headdebrid ed without incidentre commend use of Amlactin and pumice stone daily Dystrophia unguium 55344 009 L60.3 Nails 1 through 10 were debrided with sharp mechanical debridemen t without incident. Nails were debrided and greater than 50% length and thickness where needed. [id number] Bacilio Hutchinson DPM [facility] [place] [address] [place] [address] 07/22/2024 16:12:21 07/23/2024 14:16:31 Foot callus 321231205 L84 worse to the right footbilate ral sub 1st metatarsal headdebrid ed without incidentre commend use of Amlactin and pumice stone daily Pain in bi lateral feet 1545555221 1047990 M79.671 M79.672 secondary to mild plantar flexed 1st ray due to arthritis bilateral and fat pad atrophy Dystrophia unguium 30422 009 L60.3 Nails 1 through 10 were debrided with sharp mechanical debridemen t without incident. Nails were debrided and greater than 50% length and thickness where needed. [id number] Bacilio Hutchinson DPM [facility] Pod[facility] [place] [address] [facility] [address] [place] [address] 09/30/2024 15:02:57 10/28/2024 16:00:04 Pain in bilateral feet 3855599078 6457123 M79.671 M79.672 secondary to mild plantar flexed 1st ray due to arthritis bilateral and fat pad atrophy Foot callus 864507921 L8 4 left sub 1st metatarsal headdebrid ed without incidentre commend use of Amlactin and pumice stone daily Dystrophia unguium 91756 009 L60.3 Nails 1 through 10 were debrided with sharp mechanical debridemen t without incident. Nails were debrided and greater than 50% length and thickness where needed. [id number] Bacilio Hutchinson DPM [facility] [place] [address] [address] 12/14/2024 15:57:32 12/21/2024 10:36:28 Dystrophia unguium 21450107 L60.3 Nails 1 through 10 were debrided with sharp mechanical debridemen t without incident. Nails were debrided and greater than 50% length and thickness where needed. Pain of to es of bilateral feet 3537876803 8490342 M79.674 M79.675 [id number] Secondary to elongated toenails [id number] Bacilio Hutchinson DPM [facility] Pod[facility] [place] [address] [address] 03/22/2025 14:34:23 03/23/2025 16:03:58 Dystrophia unguium 74465492 L60.3 Nails 1 through 10 were debrided with sharp mechanical debridemen t without incident. Nails were debrided and greater than 50% length and thickness where needed. Pain of to es of bilateral feet 2594816771 1335004 M79.674 M79.675 94269357 Secondary to elongated toenails Health Concerns Section Related Observation LastModified by Organization Detai ls LastModified Time None Recorded Concern Status LastModified by Organization Details LastModified Time None Recorded Advance Directives Directive None Recorded Payers Insurance Date Sequence Insurance Name Policy Number Policy Cabral Covered Member ID Cabral Member ID Guarantor Name 03/19/2025 1 [place] Mely Monsivais Dioni [id number] Mely Dioni 10/12/2024 2 [facility] R SUPPLEMENT PLAN (MEDICARE SUPPLEMENT) Mely Dioni [id number] Mely Dioni 03/19/2025 2 SECURE ADMINISTRATIVE SERVICES - [employer] [facility] (MEDICARE SUPPLEMENT) SSLIC Mely Saelt [id number] Mely Daleafe 01/16/2025 2 UNSPECIFIED NAZIA T PAYOR Mely Dioni Notes Date Note Type Note Provider Name and Address Organization Details Recorded Time 07/05/2024 text/html . Patient is an 84-year-old [...] at rest it is not problematic. Bacilio Hutchinson, SANDRA [address] [facility] [facility] [address], [place], [address], [facility] [employer] 07/12/2024 09:34:37 07/22/2024 text/html . Patient is [...] perform this. Bacilio Hutchinson DPM [address], [address], [place], [address], [facility] 07/22/2024 17:32:44 09/30/2024 text/html . Patient is 84-year-old female she returns the office for follow-up on bilateral foot pain. Patient has obtained accommodative insoles she has cut out under the sub 1st metatarsal head. Patient has complete resolution of callusing to the right foot continues have callusing under the left sub 1st metatarsal head she does have discomfort with walking and pressure. Patient denies any open wounds. Patient states that she also has thickened toenails that she is unable cut and would like to have them cut. Patient denies any other complaints. Bacilio Hutchinson DPM [address], [address], [place], [address], [facility] 10/27/2024 10:16:12 12/14/2024 text/html . Patient is 84-year-old female who returns the office for routine foot care. Patient presents with her daughter she recently fell and is in a skilled facility currently with rehab. Patient presents with a walker she denies any new complaints and would like her nails cut she can not cut them. Bacilio Hutchinson DPM [address], [address], [place], [address], [facility] 12/15/2024 13:47:33 OBGyn Episode No OBEpisode recorded.
--- OUTSIDE RECORDS SUMMARY | 2025-04-15 13:53 | XMS_ITS | Clinical Summary ---
Author Organization [facility] Address [address] [place] [address] Care Team Providers Care Consulting Psychologist Name Role Phone Unavailable Primary Care Provider [...] - 1-dose 75+ series) 2013 COVID-19 Vaccine (2024-2 6 season) 2025 Influenza Adult (#1) 2025 Hepatitis A Vaccines Aged Out No long er eligible based on patient's age to complete this topic Meningococcal B Vaccine Aged Out No l onger eligible based on patient's age to complete this topic Meningococcal Vaccine Aged Out No krista alonso eligible based on patient's age to complete this topic RSV Immunizations Under 20 Months Aged Out No longer eligible based on patient's age to complete this topic
[2025-04-15 15:03] LABS: Add Urine Microscopic? YES; Appearance Urine Clear (Clear); Glucose Urine UA Negative (Negative); Leukocyte Esterase Ur 1+ LEU/UL (Negative); Nitrate Urine Negative (Negative); Non Pathogenic Casts 0-2; Specific Grav Ur 1.018 (1.001-1.035)
[2025-04-15 15:06] LABS: Anion Gap 5 mmol/L (4-12); Blood Urea Nitrogen 26 mg/dL (7-17); Calcium 9.4 mg/dL (8.4-10.2); Carbon Dioxide 30 mmol/L (22-30); Chloride 101 mmol/L (98-107); Estimated Glomerular Filt Rate > 60; Glucose 80 mg/dL (65-110); Potassium 3.9 mmol/L (3.4-5.0); Sodium 136 mmol/L (137-145)
== END 2025-04-15 13:51 | disposition home or self-care (01) ==
LOC: ANHIMG 13:52
PROVIDERS: PCP Nurse Practitioner; Visit Provider Nurse Practitioner
DX: R29.6 Repeated falls (principal); S32.512A Fracture of superior rim of left pubis, initial encounter for closed fracture; W19.XXXA Unspecified fall, initial encounter; X58.XXXA Exposure to other specified factors, initial encounter; M19.032 Primary osteoarthritis, left wrist
CPT/HCPCS: 36415; 73100; 73502; 80048; 81001; 87077; 87086; 87186